=== PATIENT | female | born 1975 | race Caucasian/White ===

== ENCOUNTER → 2017-01-01 | Emergency (ER) | payer OTHER ==
[~2017-01-01] MED LIST: KETOROLAC TROMETHAMINE 30 MG/1 ML VIAL IVPUSH ONE; KETOROLAC TROMETHAMINE 60 MG/2 ML VIAL ONE; METOCLOPRAMIDE HCL INJECTION 10 MG/2 ML VIAL IVPB ONE; METOCLOPRAMIDE HCL INJECTION 10 MG/2 ML VIAL ONE; SODIUM CHLORIDE 1,000 ML IV SCH; oxyCODONE HCL 5 MG TABLET ONE; oxyCODONE HCL 5 MG TABLET PO ONE
[2017-01-01 15:12] VITALS: BP 156/93; PULSE 75; TEMP 98.3; BMI 26.3
--- NOTE | 2017-01-01 18:15 | PDOC ---
History of Present Illness - General Chief Complaint: Headache Stated Complaint: HEADACHE Time Seen by Provider: 01/01/17 17:23 - History of Present Illness Initial Comments: 01/01/17 19:13 Patient is a 41-year old female with past medical history of sickle cell disease presenting with headache and fever x2 days. patient states that the pain is mostly located in the sinus region frontal and maxillary and radiates over the top of ad to the occipital region. Patient states this is unusual for her she will headaches. Patient admits to rhinorrhea and nasal congestion. Denies photophobia, phonophobia and neck pain. patient states her regularly prescribed oxycodone. She had minimal relief.Patient was concerned about this headache due to recent sickle cell crisis. Patient states he was also septic at that time. Patient denies dizziness and weakness lightheadedness. Denies chills cough shortness of breath dyspnea chest pain palpitations nausea vomiting or diarrhea. Past History - Past Medical History Allergies/Adverse Reactions: Allergies Allergy/AdvReac Type Severity Reaction Status Date / Time No Known Allergies Allergy Verified 01/01/17 15:08 Home Medications: Ambulatory Orders Clonazepam [Klonopin] 1 mg PO BID PRN 01/01/17 Docusate Sodium [Colace -] 100 mg PO DAILY PRN 01/01/17 Folic Acid 1 mg PO DAILY 01/01/17 Oxycodone HCl 10 mg PO QID 01/01/17 Amoxicillin/Potassium Clav [Augmentin 875-125 Tablet] 1 each PO BID #14 tablet 01/02/17 Ibuprofen [Motrin -] 600 mg PO QID PRN #30 tablet 01/02/17 Anemia: No Asthma: No Cancer: No Cardiac Disorders: No CVA: No COPD: No CHF: No Dementia: No Diabetes: No GI Disorders: Yes (fatty liver on u/s) Disorders: No HTN: Yes (not on meds) Hypercholesterolemia: No Liver Disease: Yes Suicide Attempt (Hx): No Seizures: No Thyroid Disease: No Other medical history: sickle cell - Surgical History Abdominal Surgery: No Appendectomy: No Cardiac Surgery: No Cholecystectomy: Yes Lung Surgery: No Neurologic Surgery: No Orthopedic Surgery: No - Reproductive History (#): 2 Para: 0 Polycystic Ovaries: Yes Spontaneous : 1 - Immunization History Immunization Up to Date: Yes - Psycho/Social/Smoking Cessation Hx Anxiety: No Suicidal Ideation: No Smoking Status: Yes Smoking History: Former smoker Have you smoked in the past 12 months: Yes Number of Cigarettes Smoked Daily: 3 If you are a former smoker, when did you quit?: 10 months back Cigars Per Day: 0 Information on smoking cessation initiated: No 'Breaking Loose' booklet given: 12/02/16 Hx Alcohol Use: No Drug/Substance Use Hx: No Substance Use Type: None Hx Substance Use Treatment: No *Physical Exam - Vital Signs Last Vital Signs Temp Pulse Resp BP Pulse Ox 98.3 F 75 18 156/93 100 01/01/17 15:09 01/01/17 15:09 01/01/17 15:09 01/01/17 15:09 01/01/17 15:09 - Physical Exam Comments: 01/01/17 19:19 GENERAL: Well developed, well nourished. Awake and alert. No acute distress. HEENT: Normocephalic, atraumatic. R eye PERRLA, L eye Fixed pinpoint pupil. (pt states that this is normal for her after cataract [place] EOMI. No conjunctival pallor. Sclera are non-icteric. TTP of the frontal and maxillary sinuses.Moist mucous membranes. Oropharynx is clear. NECK: Supple. Full ROM. (-) bruinskis sign, kernigs sign. No JVD. Carotid pulses 2+ and symmetric, without bruits. No thyromegaly. No lymphadenopathy. CARDIOVASCULAR: Regular rate and rhythm. No murmurs, rubs, or gallops. Distal pulses are 2+ and symmetric. PULMONARY: No evidence of respiratory distress. Lungs clear to auscultation bilaterally. No wheezing, rales or rhonchi. ABDOMINAL: Soft. Non-tender. Non-distended. No rebound or guarding. No organomegaly. Normoactive bowel sounds. MUSCULOSKELETAL Normal range of motion at all joints. No bony deformities or tenderness. No CVA tenderness. EXTREMITIES: No cyanosis. No clubbing. No edema. No calf tenderness. SKIN: Warm and dry. Normal capillary refill. No rashes. No jaundice. NEUROLOGICAL: Alert, awake, appropriate. Cranial nerves 2-12 intact. No deficits to light touch and temperature in face, upper extremities and lower extremities. No motor deficits in the in face, upper extremities and lower extremities. Normoreflexic in the upper and lower extremities. Normal speech. Toes are down- going bilaterally. Gait is normal without ataxia. PSYCHIATRIC: Cooperative. Good eye contact. Appropriate mood and affect. ED Treatment Course - LABORATORY CBC & Chemistry Diagram: 01/01/17 18:47 01/01/17 18:47 Medical Decision Making - Medical Decision Making 01/01/17 19:19 Pt. is a 41 y/o female with PMH of sickle cell anemia presenting with headache and fever x2 days. Given pt. history will order basic labs, head CT and facial CT to determine if there is a sinus infection or other reason for her headache. Less suspicious for meningitis given lack of kernigs sign, brudinkis sign. CBC, CMP, Urine Upreg CT scan of head and facial bones Additional oxycodone for pain management. Will re-evaluate. 01/01/17 19:27 Sign out given to Lisandra SERNA. Discussed the case. Still waiting on labs and CT scans. *DC/Admit/Observation/Transfer Diagnosis at time of Disposition: Headache Qualifiers: Headache type: other headache syndrome Qualified Code(s): G44.89 - Other headache syndrome - Discharge Dispostion Disposition: HOME Condition at time of disposition: Improved - Prescriptions Prescriptions: Amoxicillin/Potassium Clav [Augmentin 875-125 Tablet] 1 each PO BID #14 tablet Ibuprofen [Motrin -] 600 mg PO QID PRN #30 tablet PRN Reason: Pain - Referrals Referrals: Taras Kwan MD [Staff Physician] - - Patient Instructions Printed Discharge Instructions: DI for Sinus Headache Additional Instructions: -Rest and stay well-hydrated -Take ibuprofen as prescribed for headache and continue Flonase -Take Augmentin as prescribed only if not improving -Follow up with neurology (referral enclosed) for further evaluation -Return here for worsening headache, weakness, changes in your vision, or any other concerning symptoms
[2017-01-01 18:56] LABS: BASOPHIL 1.1 % (0-2.0); EOSINOPHIL 4.1 % (0-4.5); MCH 26.8 pg (25.7-33.7); MCHC 33.1 g/dl (32.0-36.0); MEAN PLT VOLUME 8.6 fl (7.5-11.1); NEUTROPHILS 42.8 % (42.8-82.8); PLATELET COUNT 193 K/MM3 (134-434); RDW 18.2 % (11.6-15.6); WHITE BLOOD COUNT 7.4 K/mm3 (4.0-10.0)
--- NOTE | 2017-01-01 19:26 | PDOC ---
*Physical Exam - Vital Signs Last Vital Signs Temp Pulse Resp BP Pulse Ox 98.3 F 75 18 156/93 100 01/01/17 15:09 01/01/17 15:09 01/01/17 15:09 01/01/17 15:09 01/01/17 15:09 ED Treatment Course - LABORATORY CBC & Chemistry Diagram: 01/01/17 18:47 01/01/17 18:47 - ADDITIONAL ORDERS Additional order review: 01/01/17 18:47 RBC 4.34 D MCV 81.0 MCHC 33.1 RDW 18.2 H MPV 8.6 D Neutrophils % 42.8 D Lymphocytes % 41.1 H D Monocytes % 10.9 H Eosinophils % 4.1 Basophils % 1.1 - Medications Given in the ED: ED Medications Discontinued Medications Generic Name Dose Route Start Last Admin Trade Name Freq PRN Reason Stop Dose Admin Oxycodone HCl 5 mg 01/01/17 18:22 01/01/17 18:57 Roxicodone - PO 01/01/17 18:23 5 mg ONCE ONE Administration Medical Decision Making - Medical Decision Making 01/01/17 19:25 Signout received from ABELARDO Newell. Briefly, this is a 41 year old female with a history of with sickle cell disease (s/p recent ICU stay for acute chest syndrome), LLE DVT, PCOS, and fatty liver disease who presented to the ED complaining of subjective fever and frontal headache/sinus pressure. Patient is well-appearing and without meningismus. Vital signs are all within normal limits. 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 This was previously noted during the patient's prior admission. There is no ventricular dilitation or indication of obstructive hydrocephalus. Bilateral maxillary sinus thickening is noted. Patient's pain following Toradol is now reduced from 10/10 to 6/10. Will give Reglan/Benadryl. She is using Flonase for sinusitis at home without relief. Will rx Augmentin for possible bacterial sinusitis, however instructed patient to start abx only if not improving as she was recently treated with abx and is at higher risk for complications. She agrees with this plan. *DC/Admit/Observation/Transfer Diagnosis at time of Disposition: Headache Qualifiers: Headache type: other headache syndrome Qualified Code(s): G44.89 - Other headache syndrome - Discharge Dispostion Disposition: HOME Condition at time of disposition: Improved Admit: No - Referrals Referrals: Taras Kwan MD [Staff Physician] - - Patient Instructions Printed Discharge Instructions: DI for Sinus Headache Additional Instructions: -Rest and stay well-hydrated -Take ibuprofen as prescribed for headache and continue Flonase -Take Augmentin as prescribed only if not improving -Follow up with neurology (referral enclosed) for further evaluation -Return here for worsening headache, weakness, changes in your vision, or any other concerning symptoms
[2017-01-01 19:31] LABS: PLATELET ESTIMATE ADEQUATE (NORMAL)
[2017-01-01 19:37] LABS: ALBUMIN 3.6 g/dl (3.4-5.0); ANION GAP 8 (8-16); CALCIUM 8.7 mg/dL (8.5-10.1); CO2 28 mmol/L (21-32); CREATININE 0.5 mg/dL (0.55-1.02); GLUCOSE,RANDOM 161 mg/dL (74-106); SGOT/AST 22 U/L (15-37); SGPT/ALT 29 U/L (12-78)
[2017-01-01 19:38] LABS: ALK PHOS 194 U/L (45-117); BILIRUBIN,TOTAL 0.8 mg/dL (0.2-1.0)
[2017-01-01 19:39] LABS: URINE APPEARANCE CLEAR; URINE BILIRUBIN NEGATIVE (NEGATIVE); URINE BLOOD NEGATIVE (NEGATIVE); URINE COLOR YELLOW; URINE GLUCOSE (UA) NEGATIVE (NEGATIVE); URINE KETONE NEGATIVE (NEGATIVE); URINE LEUK ESTERASE NEGATIVE (NEGATIVE); URINE NITRITE NEGATIVE (NEGATIVE); URINE PROTEIN NEGATIVE (NEGATIVE); URINE UROBILINOGEN NEGATIVE E.U./dl (0.2-1.0)
== END | disposition home or self-care (01) ==
LOC: JER 14:49
PROC: 3E033NZ Introduction of Analgesics, Hypnotics, Sedatives into Peripheral Vein, Percutaneous Approach (ICD-10-PCS; principal; 2017-01-01)
PROC: 3E033GC Introduction of Other Therapeutic Substance into Peripheral Vein, Percutaneous Approach (ICD-10-PCS; 2017-01-01)
PROC: 3E0333Z Introduction of Anti-inflammatory into Peripheral Vein, Percutaneous Approach (ICD-10-PCS; 2017-01-01)
DX: G44.89 Other headache syndrome (principal); D57.1 Sickle-cell disease without crisis; K76.0 Fatty (change of) liver, not elsewhere classified; Z87.891 Personal history of nicotine dependence
CPT/HCPCS: 36415; 70450-TC; 80053; 81003; 84703; 85025; 96374; 96375; 99283-25

== ENCOUNTER 2017-04-15 21:41 | Inpatient (IN) | payer OTHER ==
[2017-04-15 22:14] VITALS: BMI 26.9
--- NOTE | 2017-04-16 00:33 | PDOC ---
History of Present Illness - General Chief Complaint: Cold Symptoms Stated Complaint: COLD SYMPTOMS Time Seen by Provider: 04/15/17 23:58 History Source: Patient - History of Present Illness Initial Comments: 04/16/17 00:58 41 year old female c/o chest pain and fever. patient signed out AMA from [facility] was admitted for pneumonia. patient c/o generalized bodyaches, fever and chest pain. History of sickle cell anemia, HTN, DM, anxiety, depression Past History - Past Medical History Allergies/Adverse Reactions: Allergies Allergy/AdvReac Type Severity Reaction Status Date / Time No Known Allergies Allergy Verified 01/01/17 15:08 Home Medications: Ambulatory Orders Clonazepam [Klonopin] 1 mg PO BID PRN 01/01/17 Docusate Sodium [Colace -] 100 mg PO DAILY PRN 01/01/17 Folic Acid 1 mg PO DAILY 01/01/17 Oxycodone HCl 10 mg PO QID 01/01/17 Amoxicillin/Potassium Clav [Augmentin 875-125 Tablet] 1 each PO BID #14 tablet 01/02/17 Ibuprofen [Motrin -] 600 mg PO QID PRN #30 tablet 01/02/17 Anemia: No Asthma: No Cancer: No Cardiac Disorders: No CVA: No COPD: No CHF: No Dementia: No Diabetes: Yes GI Disorders: Yes (fatty liver on u/s) Disorders: No HTN: Yes Hypercholesterolemia: No Liver Disease: Yes Suicide Attempt (Hx): No Seizures: No Thyroid Disease: No Other medical history: sickle cell anemia - Surgical History Abdominal Surgery: No Appendectomy: No Cardiac Surgery: No Cholecystectomy: Yes Lung Surgery: No Neurologic Surgery: No Orthopedic Surgery: No - Reproductive History (#): 2 Para: 0 Polycystic Ovaries: Yes Spontaneous : 1 - Immunization History Immunization Up to Date: Yes - Psycho/Social/Smoking Cessation Hx Anxiety: No Suicidal Ideation: No Smoking Status: Yes Smoking History: Former smoker Have you smoked in the past 12 months: No Number of Cigarettes Smoked Daily: 3 If you are a former smoker, when did you quit?: 10 months back Cigars Per Day: 0 Information on smoking cessation initiated: No 'Breaking Loose' booklet given: 12/02/16 Hx Alcohol Use: No Drug/Substance Use Hx: No Substance Use Type: None Hx Substance Use Treatment: No Review of Systems - Review of Systems Able to Perform ROS?: Yes Is the patient limited Azerbaijani proficient: No Constitutional: Yes: Chills, Fever HEENTM: No: Symptoms Reported, See HPI, Eye Pain, Blurred Vision, Tearing, Recent change in vision, Double Vision, Cataracts, Ear Pain, Ocular Prothesis, Ear Discharge, Nose Pain, Nose Congestion, Tinnitus, Nose Bleeding, Hearing Loss , Throat Pain, Throat Swelling, Mouth Pain, Dental Problems, Difficulty Swallowing, Mouth Swelling, Other Respiratory: Yes: Cough Cardiac (ROS): Yes: Chest Pain *Physical Exam - Vital Signs Last Vital Signs Temp Pulse Resp BP Pulse Ox 98.3 F 97 H 18 124/88 96 04/15/17 22:11 04/15/17 22:11 04/15/17 22:11 04/15/17 22:11 04/15/17 22:11 - Physical Exam General Appearance: Yes: Appropriately Dressed Respiratory/Chest: positive: Other (coarse breath sounds) Cardiovascular: positive: Regular Rhythm, Regular Rate Gastrointestinal/Abdominal: positive: Normal Bowel Sounds, Soft Extremity: positive: Normal Capillary Refill, Normal Inspection, Normal Range of Motion Integumentary: positive: Normal Color, Dry, Warm Neurologic: positive: Fully Oriented, Alert, Normal Mood/Affect ED Treatment Course - LABORATORY CBC & Chemistry Diagram: 04/16/17 01:03 04/16/17 01:03 - RADIOLOGY Chest X-Ray Result: No Infiltrates (bibasilar atelectasis) Progress Note - Progress Note Progress Note: A: chest pain Medical Decision Making - Medical Decision Making 04/16/17 04:48 Dr. Gannon Hematology consulted. recommends rate controlled IVF, CT chest, zosyn , pain control , DVT prophylaxis 04/16/17 04:50 *DC/Admit/Observation/Transfer Diagnosis at time of Disposition: Sickle cell crisis acute chest syndrome - Referrals Referrals: STAFF,NOT ON [Primary Care Provider] -
[2017-04-16 01:25] LABS: MCH 26.7 pg (25.7-33.7); MCHC 34.5 g/dl (32.0-36.0); MEAN CELL VOLUME 77.3 fl (80-96); MEAN PLT VOLUME 11.2 fl (7.5-11.1); RDW 19.9 % (11.6-15.6); WHITE BLOOD COUNT 8.7 K/mm3 (4.0-10.0)
[2017-04-16 01:32] LABS: URINE APPEARANCE CLEAR; URINE BILIRUBIN NEGATIVE (NEGATIVE); URINE BLOOD NEGATIVE (NEGATIVE); URINE COLOR LTYELLOW; URINE GLUCOSE (UA) NEGATIVE (NEGATIVE); URINE KETONE NEGATIVE (NEGATIVE); URINE LEUK ESTERASE NEGATIVE (NEGATIVE); URINE NITRITE NEGATIVE (NEGATIVE); URINE PROTEIN NEGATIVE (NEGATIVE); URINE UROBILINOGEN NEGATIVE E.U./dl (0.2-1.0)
[2017-04-16 01:35] LABS: INR 1.15 (0.82-1.09); PROTHROMBIN TIME (PATIENT) 12.7 SEC (9.98-11.88)
[2017-04-16 01:45] LABS: ALBUMIN 3.4 g/dl (3.4-5.0); ANION GAP 11 (8-16); CALCIUM 8.8 mg/dL (8.5-10.1); CO2 28 mmol/L (21-32); COCKROFT - GAULT 111.775; CREATININE 0.8 mg/dL (0.55-1.02); GLUCOSE,RANDOM 243 mg/dL (74-106); SGOT/AST 36 U/L (15-37); SGPT/ALT 38 U/L (12-78); TOT PROT 6.7 g/dl (6.4-8.2)
[2017-04-16 01:47] LABS: ALK PHOS 116 U/L (45-117); TROPONIN I < 0.02 ng/ml (0.00-0.05)
[2017-04-16 02:11] LABS: PLATELET COMMENT2 NO CLOTTING DETECTED; PLATELET COMMENT3 MOD GIANT PLTS; PLATELET COUNT 189 K/MM3 (134-434); PLATELET ESTIMATE ADEQUATE (NORMAL); SMUDGE CELLS FEW
[2017-04-16 02:12] LABS: ANISOCYTOSIS 1+; FRAGMENTED CELL 1+; HYPOCHROMIA 1+; MICROCYTOSIS 1+; POIKILOCYTOSIS 1+; POLYCHROMASIA 1+; TARGET CELLS 1+
[2017-04-16] MEDS ORDERED: IBUPROFEN 600 MG TABLET (FP) PO ONE ×2 (05:00→05:06)
[2017-04-16] MEDS ORDERED: SODIUM CHLORIDE 1,000 ML IV SCH (05:00)
[2017-04-16] MEDS ORDERED: IBUPROFEN 600 MG TABLET (FP) PO PRN (08:19)
--- NOTE | 2017-04-16 09:15 | EKG ---
Test Reason : Blood Pressure : / mmHG Vent. Rate : 081 BPM Atrial Rate : 081 BPM P-R Int : 164 ms QRS Dur : 078 ms QT Int : 374 ms P-R-T Axes : 053 -21 012 degrees QTc Int : 434 ms NORMAL SINUS RHYTHM POSSIBLE LEFT ATRIAL ENLARGEMENT LEFT AXIS DEVIATION LEFT VENTRICULAR HYPERTROPHY ABNORMAL ECG Confirmed by DONNA WEISS MD ([id number]) on 04/16/2017 9:15:32 AM Referred By: Confirmed By:DONNA WEISS MD
[2017-04-16] MEDS ORDERED: PATIENT'S OWN MEDICATION (NON-FORMULARY) (Oxycodone Hcl [Oxycodone Hcl] 10 MG) PO SCH (10:00)
[2017-04-16] MEDS ORDERED: INSULIN (NOVOLOG) ASPART 100 UNITS/ML 10ML VIAL ONE ×3 (10:29→22:53)
[2017-04-16] MEDS: amLODIPine BESYLATE 5 MG TABLET (FP) PO SCH (10:31)
[2017-04-16] MEDS: DOCUSATE SODIUM 100 MG CAPSULE (FP) PO SCH ×2 (10:31→23:05)
[2017-04-16] MEDS: RANITIDINE HCL 150 MG TABLET (FP) PO SCH ×2 (10:31→23:04)
[2017-04-16] MEDS: SERTRALINE HCL 25 MG TABLET (FP) PO SCH (10:31)
[2017-04-16] MEDS: FOLIC ACID 1 MG TABLET (FP) PO SCH (10:31)
[2017-04-16] MEDS: oxyCODONE HCL 5 MG TABLET PO PRN (10:32)
[2017-04-16] MEDS: SODIUM CHLORIDE 1,000 ML IV SCH (10:39)
[2017-04-16] MEDS: INSULIN SLIDING SCALE (NOVOLOG) 1 VIAL SQ SCH ×3 (10:39→23:05)
--- NOTE | 2017-04-16 11:02 | HP ---
CHIEF COMPLAINT: arm and leg pain, In ER c/o fever, chest pain? PCP: not on staff ~ Dr. Munguia in [facility] last seen in February and scheduled to see her again in May 2017 HISTORY OF PRESENT ILLNESS: This 41 year old female who has a significant hx of sickle cell anemia was initially seen [facility] ER the day before. She had complaints of "general body pain, fever (not documented) and chest pain however she spent 24 in the ER waiting for a bed that she signed out AMA. She states she is not here with similar complaints of arm and leg pain when interviewed for admission. According to note from ER she also stated she had chest pain and fever with ? pna but pt now states she does not have those complaints. Her primary language is amharic. She states she has left side arm and leg pain with out joint swelling, redness, recent trauma, fever. She has chronic pain with Sickle and takes tramadol for it at home but it does not work well. Currently she was treated in ER with 1 IVF of bolus, noted to have an elevated retic count over 3. She is afebrile. She underwent a CXR and CT of the chest. No pna noted, however a noted finding of a nodule to the LLL that should be followed up in 12 month is noted. She has no c/o sob or chest pain or cough currently. No need for current antibiotic use. She is currently admitted to for continual treatment of Sickle cell crisis and management of pain. Recent Travel: denies PAST MEDICAL HISTORY: sickle cell gene PAST SURGICAL HISTORY: Social History: Smoking:former Alcohol:denies Drugs: denies Family History: Allergies No Known Allergies Allergy (Verified 01/01/17 15:08) HOME MEDICATIONS: Home Medications Medication Instructions Recorded Docusate Sodium [Colace -] 100 mg PO BID 01/01/17 Folic Acid 1 mg PO DAILY 01/01/17 Oxycodone HCl 10 mg PO QID 01/01/17 Amoxicillin/Potassium Clav 1 each PO BID #14 tablet 01/02/17 [Augmentin 875-125 Tablet] Ibuprofen [Motrin -] 600 mg PO QID PRN #30 tablet 01/02/17 Amlodipine Besylate [Norvasc -] 5 mg PO DAILY 04/16/17 Clonazepam [Klonopin -] 2 mg PO BID PRN 04/16/17 Famotidine [Heartburn Prevention] 20 mg PO BID 04/16/17 Metformin HCl [Metformin HCl ER] 500 mg PO ACBK 04/16/17 Sertraline HCl [Zoloft] 25 mg PO DAILY 04/16/17 Tramadol HCl 50 mg PO DAILY PRN 04/16/17 Trazodone HCl 50 mg PO HS 04/16/17 REVIEW OF SYSTEMS CONSTITUTIONAL: Absent: (+)fever, chills, diaphoresis, generalized weakness, malaise, loss of appetite, weight change HEENT: Absent: rhinorrhea, nasal congestion, throat pain, throat swelling, difficulty swallowing, mouth swelling, ear pain, eye pain, visual changes CARDIOVASCULAR: Absent: (+)chest pain, syncope, palpitations, irregular heart rate, lightheadedness, peripheral edema RESPIRATORY: Absent: (+)cough, shortness of breath, dyspnea with exertion, orthopnea, wheezing, stridor, hemoptysis GASTROINTESTINAL: Absent: abdominal pain, abdominal distension, nausea, vomiting, diarrhea, constipation, melena, hematochezia GENITOURINARY: Absent: dysuria, frequency, urgency, hesitancy, hematuria, flank pain, genital pain MUSCULOSKELETAL: Absent: (+)myalgia, (+)arthralgia, joint swelling, back pain, neck pain SKIN: Absent: rash, itching, pallor HEMATOLOGIC/IMMUNOLOGIC: Absent: easy bleeding, easy bruising, lymphadenopathy, frequent infections ENDOCRINE: Absent: unexplained weight gain, unexplained weight loss, heat intolerance, cold intolerance NEUROLOGIC: Absent: headache, focal weakness or paresthesias, dizziness, unsteady gait, seizure, mental status changes, bladder or bowel incontinence PSYCHIATRIC: Absent: anxiety, depression, suicidal or homicidal ideation, hallucinations. PHYSICAL EXAMINATION Vital Signs - 24 hr 04/16/17 04/16/17 06:40 08:35 Temperature 98.0 F Pulse Rate 76 Pulse Rate [ 87 Left] Respiratory 16 20 Rate Blood Pressure 142/99 Blood Pressure 130/78 [Right] O2 Sat by Pulse 99 99 Oximetry (%) GENERAL: Awake, alert, and fully oriented, in no acute distress. HEAD: Normal with no signs of trauma. EYES: Pupils equal, round and reactive to light, extraocular movements intact, sclera anicteric, conjunctiva clear. No lid lag. EARS, NOSE, THROAT: Ears normal, nares patent, oropharynx clear without exudates. Moist mucous membranes. NECK: Normal range of motion, supple without lymphadenopathy, JVD, or masses. LUNGS: Breath sounds equal, clear to auscultation bilaterally. No wheezes, and no crackles. No accessory muscle use. Noted to have mild cough on exam but no production HEART: Regular rate and rhythm, normal S1 and S2 without murmur, rub or gallop. EKG: noted to have Left axis deviation and hypertrophy, first set of trops neg. ABDOMEN: Soft, nontender, not distended, normoactive bowel sounds, no guarding, no rebound, no masses. No hepatomegaly or splenomegaly. MUSCULOSKELETAL: Normal range of motion at all joints. No bony deformities or tenderness. No CVA tenderness. however states she has pain generalized UPPER EXTREMITIES: 2+ pulses, warm, well-perfused. No cyanosis. No clubbing. No peripheral edema. LOWER EXTREMITIES: 2+ pulses, warm, well-perfused. No calf tenderness. No peripheral edema. NEUROLOGICAL: Cranial nerves II-XII intact. Normal speech. Normal gait. PSYCHIATRIC: Cooperative. Good eye contact. Appropriate mood and affect. SKIN: Warm, dry, normal turgor, no rashes or lesions noted, normal capillary refill. ASSESSMENT/PLAN: This 41 yr old female with c/o general body pains, ? chest pain 2nd to sickle cell crisis 1. Sickle Cell Crisis -Continue with IVF -repeat retic and cbc labs later today -pain meds PRN -consult with Dr Gannon, hematology 2. chest pain, probable secondary to crisis event -CT of chest with found noted nodule to be reassessed in 12 mnths -cxr no infiltrates noted, no ABT needed at this time -no fever noted in [place], sulphur VS -incentive spirometer -trend trops 3. Admit to 6 s for admission med surg for sickle cell crisis Visit type - Emergency Visit Emergency Visit: Yes ED Registration Date: 04/16/17 Care time: The patient presented to the Emergency Department on the above date and was hospitalized for further evaluation of their emergent condition. - New Patient This patient is new to me today: Yes Date on this admission: 04/16/17 - Critical Care Critical Care patient: No
[2017-04-16] MEDS ORDERED: PNEUMOC 13-VAL CONJ-DIP CRM/PF 0.5 ML DISP.SYRIN IM ONE (13:00)
[2017-04-16 15:49] LABS: MCH 26.4 pg (25.7-33.7); MCHC 34.2 g/dl (32.0-36.0); MEAN CELL VOLUME 77.2 fl (80-96); MEAN PLT VOLUME 11.1 fl (7.5-11.1); PLATELET COUNT 181 K/MM3 (134-434); RDW 20.2 % (11.6-15.6)
[2017-04-16 16:27] LABS: ANION GAP 8 (8-16); CALCIUM 8.6 mg/dL (8.5-10.1); CO2 29 mmol/L (21-32); CREATININE 0.7 mg/dL (0.55-1.02); GLUCOSE,RANDOM 109 mg/dL (74-106)
[2017-04-16 16:29] LABS: TROPONIN I < 0.02 ng/ml (0.00-0.05)
[2017-04-16 19:11] LABS: ANISOCYTOSIS 1+; PLATELET COMMENT2 NO CLUMPING NOTED; PLATELET ESTIMATE ADEQUATE (NORMAL)
[2017-04-16] MEDS: morphine CARPU-JECT 2 MG/1 ML DISP.SYRIN IVPUSH PRN (20:30)
[2017-04-16] MEDS: traZODone HCL 50 MG TABLET (FP) PO SCH (23:03)
--- NOTE | 2017-04-16 23:25 | PN ---
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 She was started on rocephin and switched to levaquin wwhen she signed out there. Signed out there and comes here for chest/back pain, cough, phlegm No fevers/chills/abdominal pain/ PMH Hemoglobin SC disease h/o acute chest syndeome PCOS infertility AFVSS Cor: RSR, No murmurs, No gallops Lungs: scattered wheezes Abd: Soft, Normal bowel sounds, No organomegaly Ext:No significant edema Abnormal Lab Results 04/16/17 04/16/17 04/17/17 14:47 14:47 06:30 WBC 12.3 H D MCV 77.2 L 77.2 L RDW 20.2 H 20.1 H Neutrophils % 24.0 L D Lymphocytes % 51.0 H D Monocytes % 11.0 H D Eosinophils % 5.0 H Nucleated RBCs 1 H Anion Gap Random Glucose 109 H D LD Total C-Reactive Protein 04/17/17 04/17/17 06:30 06:30 WBC MCV RDW Neutrophils % Lymphocytes % Monocytes % Eosinophils % Nucleated RBCs Anion Gap 7 L Random Glucose 161 H D LD Total 264 H D C-Reactive Protein 1.0 H D Home Medication List Medication Instructions Recorded Confirmed Type Docusate Sodium [Colace -] 100 mg PO BID 01/01/17 04/16/17 History Folic Acid 1 mg PO DAILY 01/01/17 04/16/17 History Oxycodone HCl 10 mg PO QID 01/01/17 04/16/17 History Amlodipine Besylate [Norvasc -] 5 mg PO DAILY 04/16/17 04/16/17 History Clonazepam [Klonopin -] 2 mg PO BID PRN 04/16/17 04/16/17 History Famotidine [Heartburn Prevention] 20 mg PO BID 04/16/17 04/16/17 History Metformin HCl [Metformin HCl ER] 500 mg PO ACBK 04/16/17 04/16/17 History Sertraline HCl [Zoloft] 25 mg PO DAILY 04/16/17 04/16/17 History Tramadol HCl 50 mg PO DAILY PRN 04/16/17 04/16/17 History Trazodone HCl 50 mg PO HS 04/16/17 04/16/17 History Active Medications Generic Name Dose Route Start Last Admin Trade Name Freq PRN Reason Stop Dose Admin Amlodipine Besylate 5 mg 04/16/17 10:00 04/17/17 09:00 Norvasc - PO 5 mg DAILY NILSON Administration Clonazepam 1 mg 04/16/17 08:19 Klonopin - PO BID PRN ANXIETY Docusate Sodium 100 mg 04/16/17 10:00 04/17/17 09:00 Colace - PO 100 mg BID NILSON Administration Folic Acid 1 mg 04/16/17 10:00 04/17/17 09:00 Folic Acid - PO 1 mg DAILY NILSON Administration Sodium Chloride 1,000 mls @ 150 mls/hr 04/16/17 10:45 04/17/17 07:17 Normal Saline - IV 150 mls/hr ASDIR NILSON Administration Ibuprofen 600 mg 04/16/17 08:19 04/16/17 16:23 Motrin - PO 600 mg QID PRN Administration PAIN Insulin Aspart 1 vial 04/16/17 11:00 04/17/17 07:14 Novolog Vial Sliding Scale - SQ 2 unit ACHS NILSON Administration Protocol Metformin HCl 500 mg 04/17/17 07:00 Glucophage Xr - PO ACBK NILSON Morphine Sulfate 1 mg 04/16/17 08:22 04/16/17 20:30 Morphine Injection - IVPUSH 1 mg Q4H PRN Administration SEVERE PAIN Oxycodone HCl 10 mg 04/16/17 08:25 04/17/17 08:57 Roxicodone - PO 10 mg Q4H PRN Administration PAIN Ranitidine HCl 150 mg 04/16/17 10:30 04/17/17 09:00 Zantac - PO 150 mg BID NILSON Administration Sertraline HCl 25 mg 04/16/17 10:00 04/17/17 09:00 Zoloft - PO 25 mg DAILY NILSON Administration Trazodone HCl 50 mg 04/16/17 22:00 04/16/17 23:03 Desyrel - PO 50 mg HS NILSON Administration A/P 41 y/o female Hgb SC disease, comes in with back, chest pain. PAtient comfortable, not in any distress. will request pain management consult for chronic pain ct chest showed no infiltrates but atelectasis incentive spirometry/folic acid/gentle hydration check LDH
[2017-04-17] MEDS: INSULIN SLIDING SCALE (NOVOLOG) 1 VIAL SQ SCH ×4 (07:14→21:19)
[2017-04-17] MEDS: SODIUM CHLORIDE 1,000 ML IV SCH (07:17)
[2017-04-17 07:56] LABS: MCH 26.9 pg (25.7-33.7); MCHC 34.8 g/dl (32.0-36.0); MEAN CELL VOLUME 77.2 fl (80-96); RDW 20.1 % (11.6-15.6); WHITE BLOOD COUNT 12.3 K/mm3 (4.0-10.0)
[2017-04-17 08:27] LABS: ANION GAP 7 (8-16); CALCIUM 8.6 mg/dL (8.5-10.1); CO2 30 mmol/L (21-32); GLUCOSE,RANDOM 161 mg/dL (74-106)
[2017-04-17 08:33] LABS: COCKROFT - GAULT 149.005; CREATININE 0.6 mg/dL (0.55-1.02); LDH 264 U/L (84-246); TROPONIN I < 0.02 ng/ml (0.00-0.05)
[2017-04-17] MEDS ORDERED: PT OWN MED DRAWER 7, Y5N ONE (08:53)
[2017-04-17] MEDS: oxyCODONE HCL 5 MG TABLET PO PRN (08:57)
[2017-04-17] MEDS: FOLIC ACID 1 MG TABLET (FP) PO SCH (09:00)
[2017-04-17] MEDS: amLODIPine BESYLATE 5 MG TABLET (FP) PO SCH (09:00)
[2017-04-17] MEDS: RANITIDINE HCL 150 MG TABLET (FP) PO SCH ×2 (09:00→21:18)
[2017-04-17] MEDS: SERTRALINE HCL 25 MG TABLET (FP) PO SCH (09:00)
[2017-04-17] MEDS: DOCUSATE SODIUM 100 MG CAPSULE (FP) PO SCH ×2 (09:00→21:18)
--- NOTE | 2017-04-17 09:15 | PN ---
Physical Exam: SUBJECTIVE: Patient seen and examined Patient is coughing and wheezing, c/o having generalized pain. OBJECTIVE: Vital Signs Temperature 98.3 F 04/17/17 06:00 Pulse Rate 87 04/17/17 06:00 Respiratory Rate 18 04/17/17 06:00 Blood Pressure 132/77 04/17/17 06:00 O2 Sat by Pulse Oximetry (%) 99 04/16/17 22:00 GENERAL: The patient is awake, alert, and fully oriented, in no acute distress. HEAD: Normal with no signs of trauma. EYES: PERRL, extraocular movements intact, sclera anicteric, conjunctiva clear. No ptosis. ENT: Ears normal, oropharynx clear without exudates, moist mucous membranes. NECK: Trachea midline, full range of motion, supple. LUNGS: positive for wheezing BL, ,no crackles, no accessory muscle use. HEART: Regular rate and rhythm, S1, S2 without murmur, rub or gallop. ABDOMEN: Soft, nontender, nondistended, normoactive bowel sounds, no guarding, no rebound, no hepatosplenomegaly, no masses. EXTREMITIES: 2+ pulses, warm, well-perfused, no edema. NEUROLOGICAL: Cranial nerves II through XII grossly intact. Normal speech, gait not observed. PSYCH: Normal mood, normal affect. SKIN: Warm, dry, normal turgor, no rashes or lesions noted CBCD WBC 12.3 K/mm3 (4.0-10.0) H D 04/17/17 06:30 RBC 4.32 M/mm3 (3.60-5.2) 04/17/17 06:30 Hgb 11.6 GM/dL (10.7-15.3) 04/17/17 06:30 Hct 33.3 % (32.4-45.2) 04/17/17 06:30 MCV 77.2 fl (80-96) L 04/17/17 06:30 MCHC 34.8 g/dl (32.0-36.0) 04/17/17 06:30 RDW 20.1 % (11.6-15.6) H 04/17/17 06:30 Plt Count 181 K/MM3 (134-434) 04/16/17 14:47 MPV 10.0 fl (7.5-11.1) 04/17/17 06:30 CMP Sodium 140 mmol/L (136-145) 04/17/17 06:30 Potassium 4.6 mmol/L (3.5-5.1) 04/17/17 06:30 Chloride 103 mmol/L (98-107) 04/17/17 06:30 Carbon Dioxide 30 mmol/L (21-32) 04/17/17 06:30 Anion Gap 7 (8-16) L 04/17/17 06:30 BUN 9 mg/dL (7-18) 04/17/17 06:30 Creatinine 0.6 mg/dL (0.55-1.02) 04/17/17 06:30 Creat Clearance w eGFR > 60 (>60) 04/16/17 01:03 Random Glucose 161 mg/dL (74-106) H D 04/17/17 06:30 Calcium 8.6 mg/dL (8.5-10.1) 04/17/17 06:30 Total Bilirubin 1.0 mg/dL (0.2-1.0) D 04/16/17 01:03 AST 36 U/L (15-37) D 04/16/17 01:03 ALT 38 U/L (12-78) D 04/16/17 01:03 Alkaline Phosphatase 116 U/L (45-117) D 04/16/17 01:03 Total Protein 6.7 g/dl (6.4-8.2) 04/16/17 01:03 Albumin 3.4 g/dl (3.4-5.0) 04/16/17 01:03 CARDIAC ENZYMES Creatine Kinase 52 IU/L (26-192) 04/16/17 01:03 Troponin I < 0.02 ng/ml (0.00-0.05) 04/17/17 06:30 04/17/17 04/17/17 04/17/17 06:30 06:30 06:38 WBC RBC Hgb Hct MCV MCHC RDW Plt Count MPV Neutrophils % Lymphocytes % Monocytes % Eosinophils % Basophils % Nucleated RBCs Differential Comment Reactive Lymphocytes Platelet Estimate Platelet Comment Anisocytosis Morphology Comment Sodium 140 Potassium 4.6 Chloride 103 Carbon Dioxide 30 Anion Gap 7 L BUN 9 Creatinine 0.6 POC Glucometer 175 Random Glucose 161 H D Calcium 8.6 LD Total 264 H D Troponin I < 0.02 C-Reactive Protein 1.0 H D Active Medications Generic Name Dose Route Start Last Admin Trade Name Freq PRN Reason Stop Dose Admin Amlodipine Besylate 5 mg 04/16/17 10:00 04/17/17 09:00 Norvasc - PO 5 mg DAILY NILSON Administration Clonazepam 1 mg 04/16/17 08:19 Klonopin - PO BID PRN ANXIETY Docusate Sodium 100 mg 04/16/17 10:00 04/17/17 09:00 Colace - PO 100 mg BID NILSON Administration Folic Acid 1 mg 04/16/17 10:00 04/17/17 09:00 Folic Acid - PO 1 mg DAILY NILSON Administration Sodium Chloride 1,000 mls @ 150 mls/hr 04/16/17 10:45 04/17/17 07:17 Normal Saline - IV 150 mls/hr ASDIR NILSON Administration Ibuprofen 600 mg 04/16/17 08:19 04/16/17 16:23 Motrin - PO 600 mg QID PRN Administration PAIN Insulin Aspart 1 vial 04/16/17 11:00 04/17/17 07:14 Novolog Vial Sliding Scale - SQ 2 unit ACHS NILSON Administration Protocol Metformin HCl 500 mg 04/17/17 07:00 Glucophage Xr - PO ACBK NILSON Morphine Sulfate 1 mg 04/16/17 08:22 04/16/17 20:30 Morphine Injection - IVPUSH 1 mg Q4H PRN Administration SEVERE PAIN Oxycodone HCl 10 mg 04/16/17 08:25 04/17/17 08:57 Roxicodone - PO 10 mg Q4H PRN Administration PAIN Ranitidine HCl 150 mg 04/16/17 10:30 04/17/17 09:00 Zantac - PO 150 mg BID NILSON Administration Sertraline HCl 25 mg 04/16/17 10:00 04/17/17 09:00 Zoloft - PO 25 mg DAILY NILSON Administration Trazodone HCl 50 mg 04/16/17 22:00 04/16/17 23:03 Desyrel - PO 50 mg HS NILSON Administration ASSESSMENT/PLAN: This 41 yr old female with c/o general body pains, chest pain with hx of sickle cell # Acute Bronchitis with exacerbation of Asthma ; Will place her on nebulizer tx , IV rocephin 1gm daily /Zithromax 500mg x 1 dose then 250mg iV daily x 5 days will stop Motrin for now since has asthma which can make her asthma worse. Pulmonary consult to see the patient. Will get Flu swab on her to r/o INFAB # Acute generalized pain/Fibromylagic Pain will get Lyme titer, TSH/FT4 levels; IVf 1/2 NS at 75cc/hr x 2 liter # Chest pain is due to her coughing and wheezing doubt Sickle cell crisis. will continue her pain meds. morphine/oxycodone prn # Sickle Cell disease continue her folic acid, appreciate Hem consult # acute leukocytosis due to her Bronchitis ;incentive spirometer # T2DM on achs insulin, will hold Metformin for now DVT Px: Lovenox sq, early ambulation. SCDs while in bed Visit type - Emergency Visit Emergency Visit: Yes ED Registration Date: 04/16/17 Care time: The patient presented to the Emergency Department on the above date and was hospitalized for further evaluation of their emergent condition. - New Patient This patient is new to me today: Yes Date on this admission: 04/17/17 - Critical Care Critical Care patient: No
[2017-04-17] MEDS: FLUTICASONE PROP 0.05% 16 GM NASAL SPRAY NS SCH ×2 (09:43→21:17)
[2017-04-17] MEDS ORDERED: ALBUTEROL SO4 2.5/IPRATROPIUM 0.5 INH SOL 3 ML VIAL.NEB. NEB PRN (11:44)
[2017-04-17 11:53] LABS: PLATELET COMMENT2 NO CLOTTING DETECTED; PLATELET COMMENT3 MOD LARGE PLTS; PLATELET COUNT 181 K/MM3 (134-434); PLATELET ESTIMATE ADEQUATE (NORMAL)
[2017-04-17] MEDS: CEFTRIAXONE 50 ML IVPB SCH (12:13)
[2017-04-17] MEDS: SODIUM CHLORIDE 0.45% 1,000 ML IV SCH (12:13)
[2017-04-17] MEDS: AZITHROMYCIN IVPB 250 ML IVPB SCH (12:17)
[2017-04-17 12:51] LABS: FREE T4 1.31 ng/dl (0.76-1.46); THYROID STIMULATING HORMONE 1.46 uIU/ml (0.358-3.74)
--- NOTE | 2017-04-17 13:25 | CON.PULM ---
Consult Consult Specialty:: PULM/CCM Referred by:: JACQUELINE Reason for Consultation:: SOB - History of Present Illness Chief Complaint: CP/SOB History of Present Illness: 41 f, known to me from a previous admission to the ICU due to Sepsis due to PNA. Was recently evaluated at [facility] and apparently she signed AMA. Reports several days of congested cough, SOB, pleuritic type CP, and wheezing. No fever or chills. No hemoptysis. No travel history or sick contacts. CT Chest : minimal basilar atelectasis Patient is currently in NAD on RA. - History Source History Provided By: Patient Limitations to Obtaining History: No Limitations - Past Medical History Cardio/Vascular: Yes: Deep Vein Thrombosis, HTN ...LMP: 03/31/17 ...: No - Past Surgical History Past Surgical History: Yes: Cataract Removal, Cholecystectomy - Alcohol/Substance Use Hx Alcohol Use: No History of Substance Use: reports: None - Smoking History Smoking history: Former smoker Have you smoked in the past 12 months: No Aproximately how many cigarettes per day: 3 If you are a former smoker, when did you quit?: 5 MONTHS AGO Home Medications - Allergies Allergies/Adverse Reactions: Allergies Allergy/AdvReac Type Severity Reaction Status Date / Time No Known Allergies Allergy Verified 01/01/17 15:08 - Home Medications Home Medications: Ambulatory Orders Docusate Sodium [Colace -] 100 mg PO BID 01/01/17 Folic Acid 1 mg PO DAILY 01/01/17 Oxycodone HCl 10 mg PO QID 01/01/17 Amoxicillin/Potassium Clav [Augmentin 875-125 Tablet] 1 each PO BID #14 tablet 01/02/17 Ibuprofen [Motrin -] 600 mg PO QID PRN #30 tablet 01/02/17 Amlodipine Besylate [Norvasc -] 5 mg PO DAILY 04/16/17 Clonazepam [Klonopin -] 2 mg PO BID PRN 04/16/17 Famotidine [Heartburn Prevention] 20 mg PO BID 04/16/17 Metformin HCl [Metformin HCl ER] 500 mg PO ACBK 04/16/17 Sertraline HCl [Zoloft] 25 mg PO DAILY 04/16/17 Tramadol HCl 50 mg PO DAILY PRN 04/16/17 Trazodone HCl 50 mg PO HS 04/16/17 Review of Systems - Review of Systems Constitutional: reports: Malaise. denies: Chills, Fever, Night Sweats, Unintentional Wgt. Loss, Weakness Eyes: reports: No Symptoms HENT: reports: No Symptoms Neck: reports: No Symptoms Cardiovascular: reports: Chest Pain, Shortness of Breath. denies: Edema, Palpitations Respiratory: reports: Cough, Snoring, SOB, SOB on Exertion, Wheezing. denies: Hemoptysis Gastrointestinal: reports: No Symptoms Genitourinary: reports: No Symptoms Breasts: reports: No Symptoms Reported Musculoskeletal: reports: No Symptoms Integumentary: reports: No Symptoms Neurological: reports: No Symptoms Endocrine: reports: No Symptoms Hematology/Lymphatic: reports: No Symptoms Psychiatric: reports: No Symptoms Physical Exam Vital Sings: Vital Signs Temperature 98.7 F 04/17/17 10:00 Pulse Rate 90 04/17/17 10:00 Respiratory Rate 18 04/17/17 10:00 Blood Pressure 140/77 04/17/17 10:00 O2 Sat by Pulse Oximetry (%) 99 04/17/17 09:00 Constitutional: Yes: No Distress, Obese Eyes: Yes: Conjunctiva Clear, EOM Intact HENT: Yes: Atraumatic, Normocephalic Neck: Yes: Supple, Trachea Midline Cardiovascular: Yes: Regular Rate and Rhythm Respiratory: Yes: Cough, Rhonchi, Tachypnea, Wheezes. No: Accessory Muscle Use , Rales, Stridor ...Inspection: Yes: WNL ...Clubbing: No Gastrointestinal: Yes: WNL, Normal Bowel Sounds, Soft Renal/: Yes: WNL Musculoskeletal: Yes: WNL Extremities: Yes: WNL Edema: No Peripheral Pulses WNL: Yes Integumentary: Yes: WNL Neurological: Yes: WNL, Alert, Oriented ...Motor Strength: WNL Psychiatric: Yes: WNL, Alert, Oriented Labs: CBC, BMP 04/17/17 06:30 04/17/17 06:30 Imaging - Results Chest X-ray: Report Reviewed, Image Reviewed Cat Scan: Report Reviewed, Image Reviewed Problem List - Problems (1) Chest pain Code(s): R07.9 - CHEST PAIN, UNSPECIFIED Qualifiers: Chest pain type: unspecified Qualified Code(s): R07.9 - Chest pain, unspecified (2) DVT (deep venous thrombosis) Code(s): I82.409 - ACUTE EMBOLISM AND THOMBOS UNSP DEEP VN UNSP LOWER EXTREMITY (3) HTN (hypertension) Code(s): I10 - ESSENTIAL (PRIMARY) HYPERTENSION Qualifiers: Hypertension type: essential hypertension Qualified Code(s): I10 - Essential (primary) hypertension (4) Acute bronchospasm Code(s): J98.01 - ACUTE BRONCHOSPASM (5) Cough Code(s): R05 - COUGH (6) Musculoskeletal pain Code(s): M79.1 - MYALGIA Assessment/Plan PLAN: IV Steroids BD TX Empiric ABX for now O2 as needed VTE prophylaxis Nasal spray Will follow (NO indication of acute chest syndrome) Thank you. Dr Barajas
[2017-04-17] MEDS: methylPREDNISolone NA SUCC 40 MG/1 ML VIAL IVPB SCH ×2 (13:57→17:13)
[2017-04-17] MEDS: ALBUTEROL SO4 2.5/IPRATROPIUM 0.5 INH SOL 3 ML VIAL.NEB. NEB SCH ×2 (14:44→22:25)
[2017-04-17] MEDS: morphine CARPU-JECT 2 MG/1 ML DISP.SYRIN IVPUSH PRN (20:25)
[2017-04-17] MEDS: traZODone HCL 50 MG TABLET (FP) PO SCH (21:18)
[2017-04-17] MEDS ORDERED: INSULIN (NOVOLOG) ASPART 100 UNITS/ML 10ML VIAL ONE (21:19)
--- NOTE | 2017-04-18 00:24 | PN ---
Progress Note (short form) - Note Progress Note: Patient seen in follow up. No events overnight. Ongoing diffuse pain - headache. Reports some coughing. No SOB at rest. Meds reviewed. Current Medications Generic Name Dose Route Start Last Admin Trade Name Freq PRN Reason Stop Dose Admin Albuterol/Ipratropium 1 amp 04/17/17 11:44 Duoneb - NEB Q6H PRN SHORTNESS OF BREATH Albuterol/Ipratropium 1 amp 04/17/17 14:00 04/17/17 22:25 Duoneb - NEB 1 amp TIDR NILSON Administration Amlodipine Besylate 5 mg 04/16/17 10:00 04/17/17 09:00 Norvasc - PO 5 mg DAILY NILSON Administration Clonazepam 1 mg 04/16/17 08:19 Klonopin - PO BID PRN ANXIETY Docusate Sodium 100 mg 04/16/17 10:00 04/17/17 21:18 Colace - PO 100 mg BID NILSON Administration Fluticasone Propionate 2 spray 04/17/17 14:30 04/17/17 21:17 Flonase - NS 2 spray DAILY NILSON Administration Folic Acid 1 mg 04/16/17 10:00 04/17/17 09:00 Folic Acid - PO 1 mg DAILY NILSON Administration Azithromycin 250 mls @ 250 mls/hr 04/17/17 11:30 04/17/17 12:17 Zithromax 500mg Ivpb (Pre-Docked) IVPB 250 mls/hr DAILY NILSON Administration Ceftriaxone Sodium 50 mls @ 100 mls/hr 04/17/17 11:30 04/17/17 12:13 Rocephin 1gm Ivpb (Pre-Docked) IVPB 100 mls/hr DAILY NILSON Administration Sodium Chloride 1,000 mls @ 75 mls/hr 04/17/17 11:45 04/17/17 12:13 1/2 Normal Saline IV 04/19/17 01:04 75 mls/hr ASDIR NILSON Administration Insulin Aspart 1 vial 04/16/17 11:00 04/17/17 21:19 Novolog Vial Sliding Scale - SQ 10 unit ACHS NILSON Administration Protocol Methylprednisolone Sodium Succinate 60 mg 04/17/17 13:30 04/17/17 17:13 Solu-Medrol - IVPB 60 mg Q8H-IV NILSON Administration Morphine Sulfate 1 mg 04/16/17 08:22 04/17/17 20:25 Morphine Injection - IVPUSH 1 mg Q4H PRN Administration SEVERE PAIN Oxycodone HCl 5 mg 04/17/17 11:29 Roxicodone - PO Q4H PRN PAIN Ranitidine HCl 150 mg 04/16/17 10:30 04/17/17 21:18 Zantac - PO 150 mg BID NILSON Administration Sertraline HCl 25 mg 04/16/17 10:00 04/17/17 09:00 Zoloft - PO 25 mg DAILY NILSON Administration Trazodone HCl 50 mg 04/16/17 22:00 04/17/17 21:18 Desyrel - PO 50 mg HS NILSON Administration On examination: Last Vital Signs Temp Pulse Resp BP Pulse Ox 98.7 F 98 H 20 138/78 96 04/17/17 22:00 04/17/17 22:00 04/17/17 22:00 04/17/17 22:00 04/17/17 20:41 General: In no acute distress. Oropharyngeal: No signs mucosal hemorrhage, no mucosal lesions. Extremities: Mild pallor and icterus, no pedal edema. Chest:good air entry bilaterally, clear. Abdomen: Soft, not distended, no palpable organomegaly, no masses. Neuro: Alert and oriented, non-focal. CVS: Normal sinus rhythm, S1, S2, no gallop or murmur. Skin: No rash. Labs reviewed: CBC, BMP 04/17/17 06:30 04/17/17 06:30 Assessment: Sickle SC with crisis. Empiric Abics - ? recent pneumonia. Continue present management - analagesia/hydration.
[2017-04-18] MEDS: methylPREDNISolone NA SUCC 40 MG/1 ML VIAL IVPB SCH ×3 (02:35→17:32)
[2017-04-18] MEDS ORDERED: INSULIN (NOVOLOG) ASPART 100 UNITS/ML 10ML VIAL ONE ×3 (06:27→21:48)
[2017-04-18] MEDS: INSULIN SLIDING SCALE (NOVOLOG) 1 VIAL SQ SCH ×4 (06:27→21:49)
[2017-04-18] MEDS: oxyCODONE HCL 5 MG TABLET PO PRN (06:33)
[2017-04-18] MEDS: ALBUTEROL SO4 2.5/IPRATROPIUM 0.5 INH SOL 3 ML VIAL.NEB. NEB SCH ×3 (06:35→22:34)
[2017-04-18] MEDS: SODIUM CHLORIDE 0.45% 1,000 ML IV SCH (06:47)
[2017-04-18] MEDS ORDERED: PT OWN MED DRAWER 7, Y5N ONE ×2 (09:29→09:31)
[2017-04-18] MEDS: amLODIPine BESYLATE 5 MG TABLET (FP) PO SCH (09:43)
[2017-04-18] MEDS: DOCUSATE SODIUM 100 MG CAPSULE (FP) PO SCH ×2 (09:43→21:46)
[2017-04-18] MEDS: FOLIC ACID 1 MG TABLET (FP) PO SCH (09:43)
[2017-04-18] MEDS: RANITIDINE HCL 150 MG TABLET (FP) PO SCH ×2 (09:43→21:46)
[2017-04-18] MEDS: FLUTICASONE PROP 0.05% 16 GM NASAL SPRAY NS SCH (09:45)
[2017-04-18] MEDS: CEFTRIAXONE 50 ML IVPB SCH (09:45)
[2017-04-18] MEDS: SERTRALINE HCL 25 MG TABLET (FP) PO SCH (09:46)
[2017-04-18] MEDS: AZITHROMYCIN IVPB 250 ML IVPB SCH (09:46)
--- NOTE | 2017-04-18 13:28 | PN ---
Progress Note (short form) - Note Progress Note: Feels a little better today. Less CP and SOB. Cough persists. Intake & Output 04/15/17 04/16/17 04/17/17 04/18/17 23:59 23:59 23:59 23:59 Intake Total 2049 5000 1200 Balance 2049 5000 1200 Weight 167 lb 167 lb Last Vital Signs Temp Pulse Resp BP Pulse Ox 97.7 F 112 H 20 142/76 96 04/18/17 09:05 04/18/17 09:05 04/18/17 09:05 04/18/17 09:05 04/18/17 09:05 Active Medications Albuterol/Ipratropium (Duoneb -) 1 amp NEB Q6H PRN PRN Reason: SHORTNESS OF BREATH Albuterol/Ipratropium (Duoneb -) 1 amp NEB TIDR [facility] Last Admin: 04/18/17 06:35 Dose: 1 amp Amlodipine Besylate (Norvasc -) 5 mg PO DAILY [facility] Last Admin: 04/18/17 09:43 Dose: 5 mg Clonazepam (Klonopin -) 1 mg PO BID PRN PRN Reason: ANXIETY Docusate Sodium (Colace -) 100 mg PO BID [facility] Last Admin: 04/18/17 09:43 Dose: 100 mg Fluticasone Propionate (Flonase -) 2 spray NS DAILY [facility] Last Admin: 04/18/17 09:45 Dose: 2 spray Folic Acid (Folic Acid -) 1 mg PO DAILY [facility] Last Admin: 04/18/17 09:43 Dose: 1 mg Azithromycin (Zithromax 500mg Ivpb (Pre-Docked)) 250 mls @ 250 mls/hr IVPB DAILY [facility] Last Admin: 04/18/17 09:46 Dose: 250 mls/hr Ceftriaxone Sodium (Rocephin 1gm Ivpb (Pre-Docked)) 50 mls @ 100 mls/hr IVPB DAILY [facility] Last Admin: 04/18/17 09:45 Dose: 100 mls/hr Sodium Chloride (1/2 Normal Saline) 1,000 mls @ 75 mls/hr IV ASDIR [facility] Stop: 04/19/17 01:04 Last Admin: 04/17/17 12:13 Dose: 75 mls/hr Insulin Aspart (Novolog Vial Sliding Scale -) 1 vial SQ ACHS [facility] PRN Reason: Protocol Last Admin: 04/18/17 11:30 Dose: 8 unit Methylprednisolone Sodium Succinate (Solu-Medrol -) 60 mg IVPB Q8H-IV [facility] Last Admin: 04/18/17 09:45 Dose: 60 mg Morphine Sulfate (Morphine Injection -) 1 mg IVPUSH Q4H PRN PRN Reason: SEVERE PAIN Last Admin: 04/17/17 20:25 Dose: 1 mg Oxycodone HCl (Roxicodone -) 5 mg PO Q4H PRN PRN Reason: PAIN Last Admin: 04/18/17 06:33 Dose: 5 mg Ranitidine HCl (Zantac -) 150 mg PO BID [facility] Last Admin: 04/18/17 09:43 Dose: 150 mg Sertraline HCl (Zoloft -) 25 mg PO DAILY [facility] Last Admin: 04/18/17 09:46 Dose: 25 mg Trazodone HCl (Desyrel -) 50 mg PO HS [facility] Last Admin: 04/17/17 21:18 Dose: 50 mg Constitutional: Yes: No Distress, Obese Eyes: Yes: Conjunctiva Clear, EOM Intact HENT: Yes: Atraumatic, Normocephalic Neck: Yes: Supple, Trachea Midline Cardiovascular: Yes: Regular Rate and Rhythm Respiratory: Yes: Cough, Rhonchi, Tachypnea, Wheezes. No: Accessory Muscle Use , Rales, Stridor ...Inspection: Yes: WNL ...Clubbing: No Gastrointestinal: Yes: WNL, Normal Bowel Sounds, Soft Renal/: Yes: WNL Musculoskeletal: Yes: WNL Extremities: Yes: WNL Edema: No Peripheral Pulses WNL: Yes Integumentary: Yes: WNL Neurological: Yes: WNL, Alert, Oriented ...Motor Strength: WNL Psychiatric: Yes: WNL, Alert, Oriented Labs: Laboratory Results - last 24 hr 04/17/17 04/17/17 04/17/17 06:30 16:24 21:16 POC Glucometer 275 395 Free T3 3.1 04/18/17 04/18/17 05:46 11:25 POC Glucometer 269 349 Free T3 Problem List - Problems (1) Chest pain Code(s): R07.9 - CHEST PAIN, UNSPECIFIED Qualifiers: Chest pain type: unspecified Qualified Code(s): R07.9 - Chest pain, unspecified (2) DVT (deep venous thrombosis) Code(s): I82.409 - ACUTE EMBOLISM AND THOMBOS UNSP DEEP VN UNSP LOWER EXTREMITY (3) HTN (hypertension) Code(s): I10 - ESSENTIAL (PRIMARY) HYPERTENSION Qualifiers: Hypertension type: essential hypertension Qualified Code(s): I10 - Essential (primary) hypertension (4) Acute bronchospasm Code(s): J98.01 - ACUTE BRONCHOSPASM (5) Cough Code(s): R05 - COUGH (6) Musculoskeletal pain Code(s): M79.1 - MYALGIA Assessment/Plan IV Steroids BD TX Empiric ABX noted O2 as needed VTE prophylaxis Nasal spray (NO indication of acute chest syndrome) Dr Barajas Problem List - Problems (1) Chest pain Code(s): R07.9 - CHEST PAIN, UNSPECIFIED Qualifiers: Chest pain type: unspecified Qualified Code(s): R07.9 - Chest pain, unspecified (2) DVT (deep venous thrombosis) Code(s): I82.409 - ACUTE EMBOLISM AND THOMBOS UNSP DEEP VN UNSP LOWER EXTREMITY (3) HTN (hypertension) Code(s): I10 - ESSENTIAL (PRIMARY) HYPERTENSION Qualifiers: Hypertension type: essential hypertension Qualified Code(s): I10 - Essential (primary) hypertension (4) Acute bronchospasm Code(s): J98.01 - ACUTE BRONCHOSPASM (5) Cough Code(s): R05 - COUGH (6) Musculoskeletal pain Code(s): M79.1 - [place]
--- NOTE | 2017-04-18 13:31 | PN ---
Progress Note (short form) - Note Progress Note: Patient is feeling better. But still coughing, no fever or chills, but c/o generalized pain. Temperature 97.7 F 04/18/17 09:05 Pulse Rate 112 H 04/18/17 09:05 Respiratory Rate 20 04/18/17 09:05 Blood Pressure 142/76 04/18/17 09:05 O2 Sat by Pulse Oximetry (%) 96 04/18/17 09:05 GENERAL: The patient is awake, alert, and fully oriented, in no acute distress. HEAD: Normal with no signs of trauma. EYES: PERRL, extraocular movements intact, sclera anicteric, conjunctiva clear. ENT: Ears normal, oropharynx clear without exudates, moist mucous membranes. NECK: Trachea midline, full range of motion, supple. LUNGS: positive for wheezing BL less than yesterday ,no crackles, no accessory muscle use. HEART: Regular rate and rhythm, S1, S2 positive, without murmur, rub or gallop. ABDOMEN: Soft, nontender, nondistended, normoactive bowel sounds, no guarding, no rebound, no hepatosplenomegaly, no masses. EXTREMITIES: 2+ pulses, warm, well-perfused, no edema. NEUROLOGICAL: Cranial nerves II through XII grossly intact. Normal speech. gait is stable PSYCH: Normal mood, normal affect. SKIN: Warm, dry, normal turgor, no rashes or lesions noted CBCD WBC 12.3 K/mm3 (4.0-10.0) H D 04/17/17 06:30 RBC 4.32 M/mm3 (3.60-5.2) 04/17/17 06:30 Hgb 11.6 GM/dL (10.7-15.3) 04/17/17 06:30 Hct 33.3 % (32.4-45.2) 04/17/17 06:30 MCV 77.2 fl (80-96) L 04/17/17 06:30 MCHC 34.8 g/dl (32.0-36.0) 04/17/17 06:30 RDW 20.1 % (11.6-15.6) H 04/17/17 06:30 Plt Count 181 K/MM3 (134-434) 04/17/17 06:30 MPV 10.0 fl (7.5-11.1) 04/17/17 06:30 CMP Sodium 140 mmol/L (136-145) 04/17/17 06:30 Potassium 4.6 mmol/L (3.5-5.1) 04/17/17 06:30 Chloride 103 mmol/L (98-107) 04/17/17 06:30 Carbon Dioxide 30 mmol/L (21-32) 04/17/17 06:30 Anion Gap 7 (8-16) L 04/17/17 06:30 BUN 9 mg/dL (7-18) 04/17/17 06:30 Creatinine 0.6 mg/dL (0.55-1.02) 04/17/17 06:30 Creat Clearance w eGFR > 60 (>60) 04/16/17 01:03 Random Glucose 161 mg/dL (74-106) H D 04/17/17 06:30 Calcium 8.6 mg/dL (8.5-10.1) 04/17/17 06:30 Total Bilirubin 1.0 mg/dL (0.2-1.0) D 04/16/17 01:03 AST 36 U/L (15-37) D 04/16/17 01:03 ALT 38 U/L (12-78) D 04/16/17 01:03 Alkaline Phosphatase 116 U/L (45-117) D 04/16/17 01:03 Total Protein 6.7 g/dl (6.4-8.2) 04/16/17 01:03 Albumin 3.4 g/dl (3.4-5.0) 04/16/17 01:03 CARDIAC ENZYMES Creatine Kinase 52 IU/L (26-192) 04/16/17 01:03 Troponin I < 0.02 ng/ml (0.00-0.05) 04/17/17 06:30 Current Medications Generic Name Dose Route Start Last Admin Trade Name Freq PRN Reason Stop Dose Admin Albuterol/Ipratropium 1 amp 04/17/17 11:44 Duoneb - NEB Q6H PRN SHORTNESS OF BREATH Albuterol/Ipratropium 1 amp 04/17/17 14:00 04/18/17 06:35 Duoneb - NEB 1 amp TIDR NILSON Administration Amlodipine Besylate 5 mg 04/16/17 10:00 04/18/17 09:43 Norvasc - PO 5 mg DAILY NILSON Administration Clonazepam 1 mg 04/16/17 08:19 Klonopin - PO BID PRN ANXIETY Docusate Sodium 100 mg 04/16/17 10:00 04/18/17 09:43 Colace - PO 100 mg BID NILSON Administration Fluticasone Propionate 2 spray 04/17/17 14:30 04/18/17 09:45 Flonase - NS 2 spray DAILY NILSON Administration Folic Acid 1 mg 04/16/17 10:00 04/18/17 09:43 Folic Acid - PO 1 mg DAILY NILSON Administration Azithromycin 250 mls @ 250 mls/hr 04/17/17 11:30 04/18/17 09:46 Zithromax 500mg Ivpb (Pre-Docked) IVPB 250 mls/hr DAILY NILSON Administration Ceftriaxone Sodium 50 mls @ 100 mls/hr 04/17/17 11:30 04/18/17 09:45 Rocephin 1gm Ivpb (Pre-Docked) IVPB 100 mls/hr DAILY NILSON Administration Sodium Chloride 1,000 mls @ 75 mls/hr 04/17/17 11:45 04/17/17 12:13 1/2 Normal Saline IV 04/19/17 01:04 75 mls/hr ASDIR NILSON Administration Insulin Aspart 1 vial 04/16/17 11:00 04/18/17 11:30 Novolog Vial Sliding Scale - SQ 8 unit ACHS NILSON Administration Protocol Methylprednisolone Sodium Succinate 60 mg 04/17/17 13:30 04/18/17 09:45 Solu-Medrol - IVPB 60 mg Q8H-IV NILSON Administration Morphine Sulfate 1 mg 04/16/17 08:22 04/17/17 20:25 Morphine Injection - IVPUSH 1 mg Q4H PRN Administration SEVERE PAIN Oxycodone HCl 5 mg 04/17/17 11:29 04/18/17 06:33 Roxicodone - PO 5 mg Q4H PRN Administration PAIN Ranitidine HCl 150 mg 04/16/17 10:30 04/18/17 09:43 Zantac - PO 150 mg BID NILSON Administration Sertraline HCl 25 mg 04/16/17 10:00 04/18/17 09:46 Zoloft - PO 25 mg DAILY NILSON Administration Trazodone HCl 50 mg 04/16/17 22:00 04/17/17 21:18 Desyrel - PO 50 mg HS [facility] Administration Home Medications Medication Instructions Recorded Docusate Sodium [Colace -] 100 mg PO BID 01/01/17 Folic Acid 1 mg PO DAILY 01/01/17 Oxycodone HCl 10 mg PO QID 01/01/17 Amoxicillin/Potassium Clav 1 each PO BID #14 tablet 01/02/17 [Augmentin 875-125 Tablet] Ibuprofen [Motrin -] 600 mg PO QID PRN #30 tablet 01/02/17 Amlodipine Besylate [Norvasc -] 5 mg PO DAILY 04/16/17 Clonazepam [Klonopin -] 2 mg PO BID PRN 04/16/17 Famotidine [Heartburn Prevention] 20 mg PO BID 04/16/17 Metformin HCl [Metformin HCl ER] 500 mg PO ACBK 04/16/17 Sertraline HCl [Zoloft] 25 mg PO DAILY 04/16/17 Tramadol HCl 50 mg PO DAILY PRN 04/16/17 Trazodone HCl 50 mg PO HS 04/16/17 Microbiology 04/16/17 01:05 Blood - Peripheral Venous Blood Culture - Preliminary NO GROWTH OBTAINED AFTER 48 HOURS, INCUBATION TO CONTINUE FOR 3 DAYS. 04/16/17 01:03 Blood - Peripheral Venous Blood Culture - Preliminary NO GROWTH OBTAINED AFTER 48 HOURS, INCUBATION TO CONTINUE FOR 3 DAYS. 04/17/17 11:50 Nasopharyngeal Swab Influenza Types A,B Antigen (CORKY) - Final 04/17/17 11:50 Nasopharyngeal Swab - Final 04/16/17 01:03 Urine - Urine Clean Catch Urine Culture - Final NO GROWTH OBTAINED A/P: This 41 yr old female with c/o general body pains, chest pain with hx of sickle cell. # Acute Bronchitis with exacerbation of Asthma continue IV antibiotic , continue nebulizer tx, IV rocephin 1gm daily /Zithromax 500mg x 3 days IV. will stop Motrin for now since has asthma which can make her asthma worse. Pulmonary consult appreciated . negative Influenza. # Acute generalized pain/Fibromylagic Pain ,Lyme titer is pending , TSH/FT4 levels; IVf 1/2 NS at 75cc/hr x 2 liter # Chest pain is due to her coughing and wheezing doubt Sickle cell crisis. will continue her pain meds. morphine/oxycodone prn # Sickle Cell disease continue her folic acid, appreciate Hem consult # acute leukocytosis due to her Bronchitis ;incentive spirometer, IV antibiotic # T2DM on achs insulin, will hold Metformin for now DVT Px: Lovenox sq, early ambulation. SCDs while in bed Visit type - Emergency Visit Emergency Visit: Yes ED Registration Date: 04/16/17 Care time: The patient presented to the Emergency Department on the above date and was hospitalized for further evaluation of their emergent condition. - New Patient This patient is new to me today: No - Critical Care Critical Care patient: No
--- NOTE | 2017-04-18 14:05 | PN ---
Progress Note (short form) - Note Progress Note: Patient seen in follow up. No events overnight. Ongoing intermittent headache. Reports some coughing. No SOB at rest. Meds reviewed. Current Medications Generic Name Dose Route Start Last Admin Trade Name Freq PRN Reason Stop Dose Admin Albuterol/Ipratropium 1 amp 04/17/17 11:44 Duoneb - NEB Q6H PRN SHORTNESS OF BREATH Albuterol/Ipratropium 1 amp 04/17/17 14:00 04/18/17 06:35 Duoneb - NEB 1 amp TIDR NILSON Administration Amlodipine Besylate 5 mg 04/16/17 10:00 04/18/17 09:43 Norvasc - PO 5 mg DAILY NILSON Administration Clonazepam 1 mg 04/16/17 08:19 Klonopin - PO BID PRN ANXIETY Docusate Sodium 100 mg 04/16/17 10:00 04/18/17 09:43 Colace - PO 100 mg BID NILSON Administration Fluticasone Propionate 2 spray 04/17/17 14:30 04/18/17 09:45 Flonase - NS 2 spray DAILY NILSON Administration Folic Acid 1 mg 04/16/17 10:00 04/18/17 09:43 Folic Acid - PO 1 mg DAILY NILSON Administration Guaifenesin 10 ml 04/18/17 13:32 Robitussin - PO Q4H PRN COUGH Azithromycin 250 mls @ 250 mls/hr 04/17/17 11:30 04/18/17 09:46 Zithromax 500mg Ivpb (Pre-Docked) IVPB 250 mls/hr DAILY NILSON Administration Ceftriaxone Sodium 50 mls @ 100 mls/hr 04/17/17 11:30 04/18/17 09:45 Rocephin 1gm Ivpb (Pre-Docked) IVPB 100 mls/hr DAILY NILSON Administration Sodium Chloride 1,000 mls @ 75 mls/hr 04/17/17 11:45 04/17/17 12:13 1/2 Normal Saline IV 04/19/17 01:04 75 mls/hr ASDIR NILSON Administration Insulin Aspart 1 vial 04/16/17 11:00 04/18/17 11:30 Novolog Vial Sliding Scale - SQ 8 unit ACHS NILSON Administration Protocol Methylprednisolone Sodium Succinate 60 mg 04/17/17 13:30 04/18/17 09:45 Solu-Medrol - IVPB 60 mg Q8H-IV NILSON Administration Morphine Sulfate 1 mg 04/16/17 08:22 04/17/17 20:25 Morphine Injection - IVPUSH 1 mg Q4H PRN Administration SEVERE PAIN Oxycodone HCl 5 mg 04/17/17 11:29 04/18/17 06:33 Roxicodone - PO 5 mg Q4H PRN Administration PAIN Ranitidine HCl 150 mg 04/16/17 10:30 04/18/17 09:43 Zantac - PO 150 mg BID NILSON Administration Sertraline HCl 25 mg 04/16/17 10:00 04/18/17 09:46 Zoloft - PO 25 mg DAILY NILSON Administration Trazodone HCl 50 mg 04/16/17 22:00 04/17/17 21:18 Desyrel - PO 50 mg HS NILSON Administration On examination: Last Vital Signs Temp Pulse Resp BP Pulse Ox 97.7 F 112 H 20 142/76 96 04/18/17 09:05 04/18/17 09:05 04/18/17 09:05 04/18/17 09:05 04/18/17 09:05 General: In no acute distress. Oropharyngeal: No signs mucosal hemorrhage, no mucosal lesions. Extremities: Mild pallor and icterus, no pedal edema. Chest:good air entry bilaterally, clear. Abdomen: Soft, not distended, no palpable organomegaly, no masses. Neuro: Alert and oriented, non-focal. CVS: Normal sinus rhythm, S1, S2, no gallop or murmur. Skin: No rash. Labs reviewed: CBC, BMP 04/17/17 06:30 04/17/17 06:30 Assessment: Sickle SC with crisis. Empiric Abics - ? recent pneumonia. Continue present management - analagesia/hydration. Ongoing chronic pain issues - likely unrelated to her hematological disorder. Specialist pain management warranted.
[2017-04-18] MEDS: guaiFENesin 200 MG/10 ML 10 ML UNIT-DOSE CUPS PO PRN ×2 (14:22→21:49)
[2017-04-18] MEDS: morphine CARPU-JECT 2 MG/1 ML DISP.SYRIN IVPUSH PRN (19:45)
[2017-04-18] MEDS: traZODone HCL 50 MG TABLET (FP) PO SCH (21:49)
[2017-04-19] MEDS: oxyCODONE HCL 5 MG TABLET PO PRN (00:28)
[2017-04-19] MEDS: methylPREDNISolone NA SUCC 40 MG/1 ML VIAL IVPB SCH ×2 (01:12→09:18)
[2017-04-19] MEDS: INSULIN SLIDING SCALE (NOVOLOG) 1 VIAL SQ SCH ×6 (06:24→22:23)
[2017-04-19] MEDS ORDERED: INSULIN (NOVOLOG) ASPART 100 UNITS/ML 10ML VIAL ONE ×4 (06:28→22:25)
[2017-04-19] MEDS: ALBUTEROL SO4 2.5/IPRATROPIUM 0.5 INH SOL 3 ML VIAL.NEB. NEB SCH ×3 (06:33→22:10)
[2017-04-19 07:16] LABS: MCHC 34.4 g/dl (32.0-36.0); MEAN CELL VOLUME 78.3 fl (80-96); MEAN PLT VOLUME 10.8 fl (7.5-11.1); PLATELET COUNT 238 K/MM3 (134-434); RDW 20.9 % (11.6-15.6)
[2017-04-19 07:24] LABS: ALBUMIN 3.5 g/dl (3.4-5.0); ANION GAP 11 (8-16); CO2 26 mmol/L (21-32); CREATININE 0.7 mg/dL (0.55-1.02); SGOT/AST 16 U/L (15-37); SGPT/ALT 34 U/L (12-78)
[2017-04-19 07:27] LABS: ALK PHOS 112 U/L (45-117); BILIRUBIN,TOTAL 1.1 mg/dL (0.2-1.0); TOT PROT 6.8 g/dl (6.4-8.2)
[2017-04-19 07:33] LABS: GLUCOSE,RANDOM 332 mg/dL (74-106)
[2017-04-19] MEDS: RANITIDINE HCL 150 MG TABLET (FP) PO SCH ×2 (09:18→21:49)
[2017-04-19] MEDS: amLODIPine BESYLATE 5 MG TABLET (FP) PO SCH (09:18)
[2017-04-19] MEDS: clonazePAM 0.5 MG TABLET PO PRN (09:18)
[2017-04-19] MEDS: FOLIC ACID 1 MG TABLET (FP) PO SCH (09:18)
[2017-04-19] MEDS: CEFTRIAXONE 50 ML IVPB SCH (09:18)
[2017-04-19] MEDS: SERTRALINE HCL 25 MG TABLET (FP) PO SCH (09:18)
[2017-04-19] MEDS: DOCUSATE SODIUM 100 MG CAPSULE (FP) PO SCH ×2 (09:18→21:49)
[2017-04-19] MEDS: AZITHROMYCIN IVPB 250 ML IVPB SCH (09:19)
[2017-04-19] MEDS: FLUTICASONE PROP 0.05% 16 GM NASAL SPRAY NS SCH (09:21)
--- NOTE | 2017-04-19 10:34 | PN ---
Progress Note (short form) - Note Progress Note: Patient is c/o having LE pain. States her wheezing is better, but continues to have mild headache. Temperature 97.7 F 04/19/17 06:00 Pulse Rate 91 H 04/19/17 06:00 Respiratory Rate 22 04/19/17 06:00 Blood Pressure 116/74 04/19/17 06:00 O2 Sat by Pulse Oximetry (%) 95 04/18/17 21:00 GENERAL: The patient is awake, alert, and fully oriented, in no acute distress. HEAD: Normal with no signs of trauma. EYES: PERRL, extraocular movements intact, sclera anicteric, conjunctiva clear. ENT: Ears normal, oropharynx clear without exudates, moist mucous membranes. NECK: Trachea midline, full range of motion, supple. LUNGS: mild wheezing BL less than yesterday ,no crackles, no accessory muscle use. HEART: Regular rate and rhythm, S1, S2 positive, without murmur, rub or gallop. ABDOMEN: Soft, nontender, nondistended, normoactive bowel sounds, no guarding, no rebound, no hepatosplenomegaly, no masses. EXTREMITIES: 2+ pulses, warm, well-perfused, no edema. NEUROLOGICAL: Cranial nerves II through XII grossly intact. Normal speech. PSYCH: Normal mood, normal affect. SKIN: Warm, dry, normal turgor, no rashes or lesions noted CBCD WBC 34.0 K/mm3 (4.0-10.0) H* D 04/19/17 06:15 RBC 4.26 M/mm3 (3.60-5.2) 04/19/17 06:15 Hgb 11.5 GM/dL (10.7-15.3) 04/19/17 06:15 Hct 33.4 % (32.4-45.2) 04/19/17 06:15 MCV 78.3 fl (80-96) L 04/19/17 06:15 MCHC 34.4 g/dl (32.0-36.0) 04/19/17 06:15 RDW 20.9 % (11.6-15.6) H 04/19/17 06:15 Plt Count 238 K/MM3 (134-434) D 04/19/17 06:15 MPV 10.8 fl (7.5-11.1) 04/19/17 06:15 CMP Sodium 138 mmol/L (136-145) 04/19/17 06:15 Potassium 4.7 mmol/L (3.5-5.1) 04/19/17 06:15 Chloride 101 mmol/L (98-107) 04/19/17 06:15 Carbon Dioxide 26 mmol/L (21-32) 04/19/17 06:15 Anion Gap 11 (8-16) 04/19/17 06:15 BUN 10 mg/dL (7-18) 04/19/17 06:15 Creatinine 0.7 mg/dL (0.55-1.02) 04/19/17 06:15 Creat Clearance w eGFR > 60 (>60) 04/19/17 06:15 Random Glucose 332 mg/dL (74-106) H* D 04/19/17 06:15 Calcium 9.0 mg/dL (8.5-10.1) 04/19/17 06:15 Total Bilirubin 1.1 mg/dL (0.2-1.0) H 04/19/17 06:15 AST 16 U/L (15-37) D 04/19/17 06:15 ALT 34 U/L (12-78) 04/19/17 06:15 Alkaline Phosphatase 112 U/L (45-117) 04/19/17 06:15 Total Protein 6.8 g/dl (6.4-8.2) 04/19/17 06:15 Albumin 3.5 g/dl (3.4-5.0) 04/19/17 06:15 CARDIAC ENZYMES Creatine Kinase 52 IU/L (26-192) 04/16/17 01:03 Troponin I < 0.02 ng/ml (0.00-0.05) 04/17/17 06:30 Current Medications Generic Name Dose Route Start Last Admin Trade Name Freq PRN Reason Stop Dose Admin Albuterol/Ipratropium 1 amp 04/17/17 11:44 Duoneb - NEB Q6H PRN SHORTNESS OF BREATH Albuterol/Ipratropium 1 amp 04/17/17 14:00 04/19/17 06:33 Duoneb - NEB 1 amp TIDR NILSON Administration Amlodipine Besylate 5 mg 04/16/17 10:00 04/19/17 09:18 Norvasc - PO 5 mg DAILY NILSON Administration Clonazepam 1 mg 04/16/17 08:19 04/19/17 09:18 Klonopin - PO 1 mg BID PRN Administration ANXIETY Docusate Sodium 100 mg 04/16/17 10:00 04/19/17 09:18 Colace - PO 100 mg BID NILSON Administration Fluticasone Propionate 2 spray 04/17/17 14:30 04/19/17 09:21 Flonase - NS 2 spray DAILY NILSON Administration Folic Acid 1 mg 04/16/17 10:00 04/19/17 09:18 Folic Acid - PO 1 mg DAILY NILSON Administration Guaifenesin 10 ml 04/18/17 13:32 04/18/17 21:49 Robitussin - PO 10 ml Q4H PRN Administration COUGH Azithromycin 250 mls @ 250 mls/hr 04/17/17 11:30 04/19/17 09:19 Zithromax 500mg Ivpb (Pre-Docked) IVPB 250 mls/hr DAILY NILSON Administration Ceftriaxone Sodium 50 mls @ 100 mls/hr 04/17/17 11:30 04/19/17 09:18 Rocephin 1gm Ivpb (Pre-Docked) IVPB 100 mls/hr DAILY NILSON Administration Insulin Aspart 1 vial 04/16/17 11:00 04/19/17 06:24 Novolog Vial Sliding Scale - SQ 8 unit ACHS NILSON Administration Protocol Methylprednisolone Sodium Succinate 60 mg 04/17/17 13:30 04/19/17 09:18 Solu-Medrol - IVPB 60 mg Q8H-IV NILSON Administration Morphine Sulfate 1 mg 04/16/17 08:22 04/18/17 19:45 Morphine Injection - IVPUSH 1 mg Q4H PRN Administration SEVERE PAIN Oxycodone HCl 5 mg 04/17/17 11:29 04/19/17 00:28 Roxicodone - PO 5 mg Q4H PRN Administration PAIN Ranitidine HCl 150 mg 04/16/17 10:30 04/19/17 09:18 Zantac - PO 150 mg BID NILSON Administration Sertraline HCl 25 mg 04/16/17 10:00 04/19/17 09:18 Zoloft - PO 25 mg DAILY NILSON Administration Trazodone HCl 50 mg 04/16/17 22:00 04/18/17 21:49 Desyrel - PO Not Given HS [facility] Home Medications Medication Instructions Recorded Docusate Sodium [Colace -] 100 mg PO BID 01/01/17 Folic Acid 1 mg PO DAILY 01/01/17 Oxycodone HCl 10 mg PO QID 01/01/17 Amoxicillin/Potassium Clav 1 each PO BID #14 tablet 01/02/17 [Augmentin 875-125 Tablet] Ibuprofen [Motrin -] 600 mg PO QID PRN #30 tablet 01/02/17 Amlodipine Besylate [Norvasc -] 5 mg PO DAILY 04/16/17 Clonazepam [Klonopin -] 2 mg PO BID PRN 04/16/17 Famotidine [Heartburn Prevention] 20 mg PO BID 04/16/17 Metformin HCl [Metformin HCl ER] 500 mg PO ACBK 04/16/17 Sertraline HCl [Zoloft] 25 mg PO DAILY 04/16/17 Tramadol HCl 50 mg PO DAILY PRN 04/16/17 Trazodone HCl 50 mg PO HS 04/16/17 04/16/17 01:05 Blood - Peripheral Venous Blood Culture - Preliminary NO GROWTH OBTAINED AFTER 48 HOURS, INCUBATION TO CONTINUE FOR 3 DAYS. 04/16/17 01:03 Blood - Peripheral Venous Blood Culture - Preliminary NO GROWTH OBTAINED AFTER 48 HOURS, INCUBATION TO CONTINUE FOR 3 DAYS. 04/17/17 11:50 Nasopharyngeal Swab Influenza Types A,B Antigen (CORKY) - Final 04/17/17 11:50 Nasopharyngeal Swab - Final 04/16/17 01:03 Urine - Urine Clean Catch Urine Culture - Final NO GROWTH OBTAINED A/P: This 41 yr old female with c/o general body pains, chest pain with hx of sickle cell. # Acute Bronchitis with exacerbation of Asthma continue IV antibiotic will stop IV steroid due to elevated blood sugar and Patient went into sickle cell crisis in the past, last admission as per ,discussed with and will stop the steroid since she is doing better in terms of her asthma. continue nebulizer tx, IV rocephin 1gm daily /Zithromax 500mg IV x 3 days will stop Motrin for now since has asthma which can make her asthma worse. Pulmonary consult appreciated . negative Influenza. # Acute generalized pain/Fibromylagic Pain ,Lyme titer is pending , TSH/FT4 levels; IVf 1/2 NS at 75cc/hr # Chest pain improved will continue her pain meds. morphine/oxycodone prn # Sickle Cell disease continue her folic acid, appreciate Hem consult # acute leukocytosis due to steroids ;incentive spirometer, IV antibiotic # T2DM on q4h insulin with coverage since sugar was elevated due to her use of steroids , will hold Metformin for now DVT Px: Lovenox sq, early ambulation. SCDs while in bed Steroids were stopped since blood sugar is getting elevated also discussed with that steroids can make her go into sickle cell crisis. Patient c/o having lower extremity pain. discussed with will see the patient and ordered LDL level. Visit type - Emergency Visit Emergency Visit: Yes ED Registration Date: 04/16/17 Care time: The patient presented to the Emergency Department on the above date and was hospitalized for further evaluation of their emergent condition. - New Patient This patient is new to me today: No - Critical Care Critical Care patient: No
[2017-04-19] MEDS ORDERED: methylPREDNISolone NA SUCC 40 MG/1 ML VIAL IVPB SCH (11:15)
--- NOTE | 2017-04-19 11:18 | PN ---
Progress Note (short form) - Note Progress Note: PULMONARY CHART REVIEWED MODERATE SUBJECTIVE IMPROVEMENT VSS/AFEBRILE ANICTERIC B/L WHEEZES AND RHONCHI SCATTERED S1S2 BS+ NO EDEMA LABS/MEDS/NOTES/IMAGING/MICRO/MEDS REVIEWED WBC 34K ? STEROIDS WILL REPEAT CBC WITH DIFF LUNG NODULE NOTED ON CT CHEST FOR WHICH FOLLOW UP IS REQUIRED (1) Chest pain Code(s): R07.9 - CHEST PAIN, UNSPECIFIED Qualifiers: Chest pain type: unspecified Qualified Code(s): R07.9 - Chest pain, unspecified (2) DVT (deep venous thrombosis) Code(s): I82.409 - ACUTE EMBOLISM AND THOMBOS UNSP DEEP VN UNSP LOWER EXTREMITY (3) HTN (hypertension) Code(s): I10 - ESSENTIAL (PRIMARY) HYPERTENSION Qualifiers: Hypertension type: essential hypertension Qualified Code(s): I10 - Essential (primary) hypertension (4) Acute bronchospasm Code(s): J98.01 - ACUTE BRONCHOSPASM (5) Cough Code(s): R05 - COUGH (6) Musculoskeletal pain Code(s): M79.1 - MYALGIA Assessment/Plan IV Steroids to be reduced repeat cbc/diff BD TX Empiric ABX noted O2 as needed VTE prophylaxis CT CHEST F/U OUTPATIENT FOR NODULE Meg HARMAN MD
[2017-04-19 11:19] LABS: ANISOCYTOSIS 2+; HYPOCHROMIA 1+; MICROCYTOSIS 2+; PLATELET ESTIMATE ADEQUATE (NORMAL); TARGET CELLS 4+
[2017-04-19 11:51] LABS: BASOPHIL 0.4 % (0-2.0); MCHC 34.9 g/dl (32.0-36.0); MEAN CELL VOLUME 77.5 fl (80-96); MEAN PLT VOLUME 10.3 fl (7.5-11.1); NEUTROPHILS 88.7 % (42.8-82.8); PLATELET COUNT 235 K/MM3 (134-434); RDW 20.4 % (11.6-15.6); WHITE BLOOD COUNT 33.9 K/mm3 (4.0-10.0)
[2017-04-19] MEDS ORDERED: morphine CARPU-JECT 2 MG/1 ML DISP.SYRIN IVPUSH PRN (14:36)
--- NOTE | 2017-04-19 16:41 | CON.NEURO ---
Consult Consult Specialty:: Neurology Referred by:: Gigi Reason for Consultation:: Patient with SC disease and Headache - History of Present Illness Chief Complaint: Headache History of Present Illness: Patient has long history of headaches,which she gets quite frequently, often for days on end, with nausea and dizziness, no phonophobia, questionable photophobia, followed at [facility], previously by Dr. Lui in [place]. She has headaches for about 10 years. The headaches are severe and holocephalgic. She has tried multiple acute and prophylactic agents without benefit she says, including Depakote, amitritpyline, Topamax, and naproxen. She has never used Botox. She says that she has had a stroke in the past but is vague about the details and contradicts this when telling me that Dr. Lui had obtained imaging of her head that was normal, although her back showed a herniated disc. She also complains of vertigo. - History Source History Provided By: Patient - Past Medical History ADMINISTRATION SPECIALIST: Yes: Migraine Cardio/Vascular: Yes: Deep Vein Thrombosis, HTN ...LMP: 03/31/17 ...: No - Past Surgical History Past Surgical History: Yes: Cataract Removal, Cholecystectomy - Alcohol/Substance Use Hx Alcohol Use: No History of Substance Use: reports: None - Smoking History Smoking history: Former smoker Have you smoked in the past 12 months: No Aproximately how many cigarettes per day: 3 If you are a former smoker, when did you quit?: 5 MONTHS AGO Home Medications - Allergies Allergies/Adverse Reactions: Allergies Allergy/AdvReac Type Severity Reaction Status Date / Time No Known Allergies Allergy Verified 01/01/17 15:08 - Home Medications Home Medications: Ambulatory Orders Docusate Sodium [Colace -] 100 mg PO BID 01/01/17 Folic Acid 1 mg PO DAILY 01/01/17 Oxycodone HCl 10 mg PO QID 01/01/17 Amoxicillin/Potassium Clav [Augmentin 875-125 Tablet] 1 each PO BID #14 tablet 01/02/17 Ibuprofen [Motrin -] 600 mg PO QID PRN #30 tablet 01/02/17 Amlodipine Besylate [Norvasc -] 5 mg PO DAILY 04/16/17 Clonazepam [Klonopin -] 2 mg PO BID PRN 04/16/17 Famotidine [Heartburn Prevention] 20 mg PO BID 04/16/17 Metformin HCl [Metformin HCl ER] 500 mg PO ACBK 04/16/17 Sertraline HCl [Zoloft] 25 mg PO DAILY 04/16/17 Tramadol HCl 50 mg PO DAILY PRN 04/16/17 Trazodone HCl 50 mg PO HS 04/16/17 Physical Exam-Neuro Vital Signs: Vital Signs Temperature 97.9 F 04/19/17 15:23 Pulse Rate 104 H 04/19/17 15:23 Respiratory Rate 22 04/19/17 06:00 Blood Pressure 142/81 04/19/17 15:23 O2 Sat by Pulse Oximetry (%) 95 04/18/17 21:00 Labs: CBC, BMP 04/19/17 11:35 04/19/17 06:15 INR, PTT INR 1.15 (0.82-1.09) H 04/16/17 01:03 - Neuro Exam Cranial Nerves II-XII Intact: Yes DTR's: 2+ Left Bicep, 2+ Right Bicep, 2+ Left Tricep, 2+ Right Tricep, 2+ Left Brachioradialis, 2+ Right Brachioradialis, 2+ Left Achilles, 2+ Right Achilles Babinski: Absent Response to light touch: Normal Motor Strength: 5/5: Left Arm, Right Arm, Left Leg, Right Leg Gait: Deferred NIH Stroke Scale - Total Score NIH Stroke Scale Score: 0 Problem List - Problems (1) Chronic migraine without aura, with status migrainosus Assessment/Plan: Will try adding Depacon [address] scan head. Code(s): G43.701 - CHRONIC MIGRAINE W/O AURA, NOT INTRACTABLE, W STAT MIGR
[2017-04-19] MEDS ORDERED: INSULIN (NOVOLOG) ASPART 100 UNITS/ML 10ML VIAL SQ ONE ×2 (17:08→22:05)
[2017-04-19] MEDS ORDERED: HYDROmorphone HCL CARPU-JECT 2 MG/1 ML DISP.SYRIN IVPB PRN (21:06)
[2017-04-19] MEDS: SODIUM CHLORIDE 1,000 ML IV SCH (21:48)
[2017-04-19] MEDS: HYDROmorphone HCL CARPU-JECT 2 MG/1 ML DISP.SYRIN IVPB PRN (21:49)
[2017-04-19] MEDS: traZODone HCL 50 MG TABLET (FP) PO SCH (21:53)
[2017-04-19] MEDS: VALPROATE SODIUM 500 MG/5 ML VIAL IVPB SCH (21:54)
--- NOTE | 2017-04-19 22:10 | HOSP ---
Subjective - Review of Symptoms Subjective: Saw pt. for shortness of breath Pt. able to speak fulls sentences at bedside, denies any chest pain/pressure States she has low back pain from her hernia Physical: VS: Vital Signs Period Temp Pulse Resp BP Sys/Tompkins Pulse Ox Last 24 Hr 97.1 F-98.3 F 87-104 20-22 116-142/74-87 95 GEN: NAD, Speaking full sentences in no acute distress HEENT: NCAT, PERRL CARD: RRR S1, S2 RESP: Diffuse bilateral expiratory wheeze ABD: BSX4, NTD to palpation EXT: - C/C/E A/P.) 41 F with HgBSC in pain crisis/ Asthma Exacerbation 1.) Pain crisis ro acute chest - STAT CXR - 02 nC - ABG if worsening Hypoxia - Pain Control and Incentive Spirometry - Will discuss case with ICU- Case discussed with ICU intensivst, will observe overnight for now and low threshold for worsening pain, hypoxia to send to ICU 2.) Asthma Exacerbation - C/W Nebs ADDENDUM: CXR- No Acute Process Physical Examination Vital Signs: Vital Signs Temperature 97.1 F L 04/19/17 18:00 Pulse Rate 98 H 04/19/17 18:00 Respiratory Rate 20 04/19/17 18:00 Blood Pressure 135/84 04/19/17 18:00 O2 Sat by Pulse Oximetry (%) 95 04/19/17 09:00 Labs: CBC, BMP 04/19/17 11:35 04/19/17 06:15
[2017-04-19 22:16] LABS: ARTERIAL BLD GAS O2 SATURATION 99.2 % (90-98.9); ARTERIAL BLOOD GAS BASE EXCESS 1.9 meq/l (-2-2); ARTERIAL BLOOD GAS HCO3 25.1 meq/L (22-26); ARTERIAL BLOOD GAS pH 7.46 (7.35-7.45)
[2017-04-19 22:17] LABS: ALLENS TEST POSITIVE; ART PUNCT SITE RIGHT RADIAL; LPM/O2% 2L; PT. ON O2? YES; TYPE OF O2 NASAL
--- NOTE | 2017-04-19 22:48 | PN ---
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 She was started on rocephin and switched to levaquin wwhen she signed out there. Signed out there and comes here for chest/back pain, cough, phlegm No fevers/chills/abdominal pain/ Today patient with LT. leg and back pain. H/o disk disease. Reports that pain seem to be both due to disk and crisis. Noted to be wheezing, mildly short of breath, hypoxic to 94% on R/A PMH Hemoglobin SC disease h/o acute chest syndeome PCOS infertility AFVSS Cor: RSR, No murmurs, No gallops Lungs: wheezes Abd: Soft, Normal bowel sounds, No organomegaly Ext:No significant edema Abnormal Lab Results 04/19/17 04/19/17 04/19/17 06:15 11:35 15:59 WBC 34.0 H* D 33.9 H* MCV 78.3 L 77.5 L RDW 20.9 H 20.4 H Neutrophils % 88.0 H D 88.7 H Lymphocytes % 7.0 L D 6.6 L ABG pH ABG pO2 at Pt Temp ABG O2 Sat (Measured) Carbon Dioxide Anion Gap Random Glucose AST LD Total 282 H 04/19/17 04/20/17 04/20/17 22:05 06:20 06:20 WBC 32.3 H* MCV 78.5 L RDW 20.0 H Neutrophils % Lymphocytes % ABG pH 7.46 H ABG pO2 at Pt Temp 117.0 H D ABG O2 Sat (Measured) 99.2 H Carbon Dioxide 33 H D Anion Gap 6 L Random Glucose 194 H D AST 13 L LD Total Active Medications Generic Name Dose Route Start Last Admin Trade Name Freq PRN Reason Stop Dose Admin Albuterol/Ipratropium 1 amp 04/17/17 11:44 Duoneb - NEB Q6H PRN SHORTNESS OF BREATH Albuterol/Ipratropium 1 amp 04/19/17 22:00 04/20/17 05:28 Duoneb - NEB 1 amp Q4HPO NILSON Administration Amlodipine Besylate 5 mg 04/16/17 10:00 04/19/17 09:18 Norvasc - PO 5 mg DAILY NILSON Administration Clonazepam 1 mg 04/16/17 08:19 04/19/17 09:18 Klonopin - PO 1 mg BID PRN Administration ANXIETY Docusate Sodium 100 mg 04/16/17 10:00 04/19/17 21:49 Colace - PO 100 mg BID NILSON Administration Fluticasone Propionate 2 spray 04/17/17 14:30 04/19/17 09:21 Flonase - NS 2 spray DAILY NILSON Administration Folic Acid 1 mg 04/16/17 10:00 04/19/17 09:18 Folic Acid - PO 1 mg DAILY NILSON Administration Guaifenesin 10 ml 04/18/17 13:32 04/18/17 21:49 Robitussin - PO 10 ml Q4H PRN Administration COUGH Hydromorphone HCl 1.5 mg 04/19/17 21:12 04/19/17 21:49 Dilaudid Injection - IVPB 1.5 mg Q3H PRN Administration PAIN Azithromycin 250 mls @ 250 mls/hr 04/17/17 11:30 04/19/17 09:19 Zithromax 500mg Ivpb (Pre-Docked) IVPB 250 mls/hr DAILY NILSON Administration Ceftriaxone Sodium 50 mls @ 100 mls/hr 04/17/17 11:30 04/19/17 09:18 Rocephin 1gm Ivpb (Pre-Docked) IVPB 100 mls/hr DAILY NILSON Administration Sodium Chloride 1,000 mls @ 75 mls/hr 04/19/17 21:15 04/19/17 21:48 Normal Saline - IV 75 mls/hr ASDIR NILSON Administration Insulin Aspart 1 vial 04/19/17 22:05 04/20/17 06:09 Novolog Vial Sliding Scale - SQ 5 units Q4HPO NILSON Administration Protocol Ranitidine HCl 150 mg 04/16/17 10:30 04/19/17 21:49 Zantac - PO 150 mg BID NILSON Administration Sertraline HCl 25 mg 04/16/17 10:00 04/19/17 09:18 Zoloft - PO 25 mg DAILY NILSON Administration Trazodone HCl 50 mg 04/16/17 22:00 04/19/17 21:53 Desyrel - PO 50 mg HS NILSON Administration Valproate Sodium 500 mg 04/19/17 22:00 04/19/17 21:54 Depacon Injection - IVPB 500 mg BID NILSON Administration A/P 41 y/o female Hgb SC disease, comes in with back, chest pain. Comes in with bronchitis Was being treated for mild pain crisis Now with wheezing, mild hypoxia, pain in lower back , lt. leg (crisis vs disk disease) 94% r/a No e/o hemolytic hilary but need to monitor closely for worsening vasocclusive crisis Oxygen to keep sats > 96% Bronchodilators Pain control Gentle hydration Check CXR Discussed with hospitalist
[2017-04-20] MEDS ORDERED: INSULIN (NOVOLOG) ASPART 100 UNITS/ML 10ML VIAL ONE ×5 (01:29→17:35)
[2017-04-20] MEDS: INSULIN SLIDING SCALE (NOVOLOG) 1 VIAL SQ SCH ×6 (01:31→21:32)
[2017-04-20] MEDS: ALBUTEROL SO4 2.5/IPRATROPIUM 0.5 INH SOL 3 ML VIAL.NEB. NEB SCH ×6 (02:00→21:40)
[2017-04-20 07:05] LABS: MCH 27.4 pg (25.7-33.7); MCHC 34.8 g/dl (32.0-36.0); MEAN CELL VOLUME 78.5 fl (80-96); MEAN PLT VOLUME 10.1 fl (7.5-11.1); PLATELET COUNT 237 K/MM3 (134-434)
[2017-04-20 07:29] LABS: ALBUMIN 3.4 g/dl (3.4-5.0); ANION GAP 6 (8-16); CALCIUM 8.5 mg/dL (8.5-10.1); CO2 33 mmol/L (21-32); GLUCOSE,RANDOM 194 mg/dL (74-106); MAGNESIUM 2.2 mg/dL (1.8-2.4); WHITE BLOOD COUNT 32.3 K/mm3 (4.0-10.0)
[2017-04-20 07:32] LABS: ALK PHOS 105 U/L (45-117); BILIRUBIN,TOTAL 0.8 mg/dL (0.2-1.0); CREATININE 0.7 mg/dL (0.55-1.02); LDH 212 U/L (84-246); SGOT/AST 13 U/L (15-37); SGPT/ALT 29 U/L (12-78); TOT PROT 6.7 g/dl (6.4-8.2)
--- NOTE | 2017-04-20 08:49 | PN ---
Teaching Attending Note Name of Resident: Humberto Quintero ATTENDING PHYSICIAN STATEMENT I saw and evaluated the patient. I reviewed the resident's note and discussed the case with the resident. I agree with the resident's findings and plan as documented. SUBJECTIVE: Patient states that her headache is better today, c/o low back pain that she was told that she has herniated disc. OBJECTIVE: Vital Signs Temperature 97.6 F 04/20/17 05:51 Pulse Rate 88 04/20/17 05:51 Respiratory Rate 20 04/20/17 05:51 Blood Pressure 128/79 04/20/17 05:51 O2 Sat by Pulse Oximetry (%) 97 04/19/17 21:00 CBCD WBC 32.3 K/mm3 (4.0-10.0) H* 04/20/17 06:20 RBC 4.16 M/mm3 (3.60-5.2) 04/20/17 06:20 Hgb 11.4 GM/dL (10.7-15.3) 04/20/17 06:20 Hct 32.7 % (32.4-45.2) 04/20/17 06:20 MCV 78.5 fl (80-96) L 04/20/17 06:20 MCHC 34.8 g/dl (32.0-36.0) 04/20/17 06:20 RDW 20.0 % (11.6-15.6) H 04/20/17 06:20 Plt Count 237 K/MM3 (134-434) 04/20/17 06:20 MPV 10.1 fl (7.5-11.1) 04/20/17 06:20 CMP Sodium 141 mmol/L (136-145) 04/20/17 06:20 Potassium 4.0 mmol/L (3.5-5.1) 04/20/17 06:20 Chloride 102 mmol/L (98-107) 04/20/17 06:20 Carbon Dioxide 33 mmol/L (21-32) H D 04/20/17 06:20 Anion Gap 6 (8-16) L 04/20/17 06:20 BUN 11 mg/dL (7-18) 04/20/17 06:20 Creatinine 0.7 mg/dL (0.55-1.02) 04/20/17 06:20 Creat Clearance w eGFR > 60 (>60) 04/20/17 06:20 Random Glucose 194 mg/dL (74-106) H D 04/20/17 06:20 Calcium 8.5 mg/dL (8.5-10.1) 04/20/17 06:20 Total Bilirubin 0.8 mg/dL (0.2-1.0) D 04/20/17 06:20 AST 13 U/L (15-37) L 04/20/17 06:20 ALT 29 U/L (12-78) 04/20/17 06:20 Alkaline Phosphatase 105 U/L (45-117) 04/20/17 06:20 Total Protein 6.7 g/dl (6.4-8.2) 04/20/17 06:20 Albumin 3.4 g/dl (3.4-5.0) 04/20/17 06:20 CARDIAC ENZYMES Creatine Kinase 52 IU/L (26-192) 04/16/17 01:03 Troponin I < 0.02 ng/ml (0.00-0.05) 04/17/17 06:30 Current Medications Generic Name Dose Route Start Last Admin Trade Name Freq PRN Reason Stop Dose Admin Albuterol/Ipratropium 1 amp 04/17/17 11:44 Duoneb - NEB Q6H PRN SHORTNESS OF BREATH Albuterol/Ipratropium 1 amp 04/19/17 22:00 04/20/17 05:28 Duoneb - NEB 1 amp Q4HPO NILSON Administration Amlodipine Besylate 5 mg 04/16/17 10:00 04/19/17 09:18 Norvasc - PO 5 mg DAILY NILSON Administration Clonazepam 1 mg 04/16/17 08:19 04/19/17 09:18 Klonopin - PO 1 mg BID PRN Administration ANXIETY Docusate Sodium 100 mg 04/16/17 10:00 04/19/17 21:49 Colace - PO 100 mg BID NILSON Administration Fluticasone Propionate 2 spray 04/17/17 14:30 04/19/17 09:21 Flonase - NS 2 spray DAILY NILSON Administration Folic Acid 1 mg 04/16/17 10:00 04/19/17 09:18 Folic Acid - PO 1 mg DAILY NILSON Administration Guaifenesin 10 ml 04/18/17 13:32 04/18/17 21:49 Robitussin - PO 10 ml Q4H PRN Administration COUGH Hydromorphone HCl 1.5 mg 04/19/17 21:12 04/19/17 21:49 Dilaudid Injection - IVPB 1.5 mg Q3H PRN Administration PAIN Azithromycin 250 mls @ 250 mls/hr 04/17/17 11:30 04/19/17 09:19 Zithromax 500mg Ivpb (Pre-Docked) IVPB 250 mls/hr DAILY NILSON Administration Ceftriaxone Sodium 50 mls @ 100 mls/hr 04/17/17 11:30 04/19/17 09:18 Rocephin 1gm Ivpb (Pre-Docked) IVPB 100 mls/hr DAILY NILSON Administration Sodium Chloride 1,000 mls @ 75 mls/hr 04/19/17 21:15 04/19/17 21:48 Normal Saline - IV 75 mls/hr ASDIR NILSON Administration Insulin Aspart 1 vial 04/19/17 22:05 04/20/17 06:09 Novolog Vial Sliding Scale - SQ 5 units Q4HPO NILSON Administration Protocol Ranitidine HCl 150 mg 04/16/17 10:30 04/19/17 21:49 Zantac - PO 150 mg BID NILSON Administration Sertraline HCl 25 mg 04/16/17 10:00 04/19/17 09:18 Zoloft - PO 25 mg DAILY NILSON Administration Trazodone HCl 50 mg 04/16/17 22:00 04/19/17 21:53 Desyrel - PO 50 mg HS NILSON Administration Valproate Sodium 500 mg 04/19/17 22:00 04/19/17 21:54 Depacon Injection - IVPB 500 mg BID NILSON Administration Home Medications Medication Instructions Recorded Docusate Sodium [Colace -] 100 mg PO BID 01/01/17 Folic Acid 1 mg PO DAILY 01/01/17 Oxycodone HCl 10 mg PO QID 01/01/17 Amoxicillin/Potassium Clav 1 each PO BID #14 tablet 01/02/17 [Augmentin 875-125 Tablet] Ibuprofen [Motrin -] 600 mg PO QID PRN #30 tablet 01/02/17 Amlodipine Besylate [Norvasc -] 5 mg PO DAILY 04/16/17 Clonazepam [Klonopin -] 2 mg PO BID PRN 04/16/17 Famotidine [Heartburn Prevention] 20 mg PO BID 04/16/17 Metformin HCl [Metformin HCl ER] 500 mg PO ACBK 04/16/17 Sertraline HCl [Zoloft] 25 mg PO DAILY 04/16/17 Tramadol HCl 50 mg PO DAILY PRN 04/16/17 Trazodone HCl 50 mg PO HS 04/16/17 Laboratory Tests 12/03/16 12/04/16 12/04/16 12:40 05:00 13:40 WBC 31.4 H* 30.8 H* 34.9 H* LD Total C-Reactive Protein TSH Free T4 Free T3 12/04/16 12/05/16 12/05/16 17:45 05:20 14:15 WBC 34.4 H* 34.2 H* 25.9 H LD Total C-Reactive Protein TSH Free T4 Free T3 12/05/16 12/06/16 12/06/16 21:30 05:20 13:52 WBC 26.3 H 23.7 H 31.8 H* D LD Total C-Reactive Protein TSH Free T4 Free T3 12/07/16 12/08/16 12/09/16 05:05 05:20 05:05 WBC 22.2 H D 21.7 H 18.4 H LD Total C-Reactive Protein TSH Free T4 Free T3 04/17/17 04/17/17 04/17/17 06:30 06:30 06:30 WBC LD Total 264 H D C-Reactive Protein 1.0 H D TSH 1.46 D Free T4 1.31 D Free T3 3.1 04/19/17 04/20/17 15:59 06:20 WBC LD Total 282 H 212 D C-Reactive Protein TSH Free T4 Free T3 CHEST: positive for wheezing but less , GAE otherwise. ASSESSMENT AND PLAN: This 41 yr old female with c/o general body pains, chest pain with hx of sickle cell. # # Acute generalized pain/Fibromylagic Pain/Headache and low back pain ;as per patient had an MRI in the past and diagnosed of Herniated disc , will get xray of her LS spine and thoracic spine . Ordered Lyme titer is still pending. , TSH/ FT4 levels are normal ,levels as above. continue IVf. Follow Xray of Lspine and Tspine # Acute Bronchitis with exacerbation of Asthma continue IV antibiotic will stop IV steroid due to elevated blood sugar and Patient went into sickle cell crisis in the past, last admission as per ,discussed with and stopped the steroid since she is doing better in terms of her asthma. continue nebulizer tx, IV rocephin 1gm daily /Zithromax 500mg IV x 3/3 will stop Motrin for now since has asthma which can make her asthma worse. Pulmonary consult appreciated . negative Influenza. # Chest pain improved will continue her pain meds. morphine/oxycodone prn # Sickle Cell disease with mild crisis overnight but improving now , continue her folic acid, appreciate Hem consult # acute leukocytosis due to steroids ;incentive spirometer, IV antibiotic Rocepin and completed Zithromax # T2DM on q4h insulin with coverage since sugar was elevated due to her use of steroids , will hold Metformin for now DVT Px: Lovenox sq, will hold it for now since having some mild nose bleed ; early ambulation. SCDs while in bed Steroids were stopped since blood sugar is getting elevated also discussed with that steroids can make her go into sickle cell crisis. Patient c/o having lower extremity pain. discussed with will see the patient and ordered LDL level.
[2017-04-20] MEDS ORDERED: PT OWN MED DRAWER 7, Y5N ONE ×2 (10:29→21:24)
[2017-04-20] MEDS: FLUTICASONE PROP 0.05% 16 GM NASAL SPRAY NS SCH (10:41)
[2017-04-20] MEDS: FOLIC ACID 1 MG TABLET (FP) PO SCH (10:41)
[2017-04-20] MEDS: VALPROATE SODIUM 500 MG/5 ML VIAL IVPB SCH ×2 (10:41→21:32)
[2017-04-20] MEDS: amLODIPine BESYLATE 5 MG TABLET (FP) PO SCH (10:41)
[2017-04-20] MEDS: DOCUSATE SODIUM 100 MG CAPSULE (FP) PO SCH ×2 (10:41→21:32)
[2017-04-20] MEDS: SERTRALINE HCL 25 MG TABLET (FP) PO SCH (10:41)
[2017-04-20 11:01] LABS: PLATELET ESTIMATE ADEQUATE (NORMAL)
[2017-04-20] MEDS: HYDROmorphone HCL CARPU-JECT 2 MG/1 ML DISP.SYRIN IVPB PRN ×2 (11:10→18:21)
[2017-04-20] MEDS: SODIUM CHLORIDE 1,000 ML IV SCH ×2 (11:54→23:44)
[2017-04-20] MEDS: CEFTRIAXONE 50 ML IVPB SCH (11:55)
[2017-04-20] MEDS: AZITHROMYCIN IVPB 250 ML IVPB SCH (11:55)
--- NOTE | 2017-04-20 12:31 | CON.CARD ---
Consult Consult Specialty:: Cardiology Referred by:: Hospitalist Reason for Consultation:: Cardiac evaluation - History of Present Illness Chief Complaint: Chest pain, productive cough, arm and leg pain History of Present Illness: Patient is a 41 year old female of descent with underlying history of sickle cell disease (Hemoglobin SC disease), history of DVT s/p embolectomy, HTN and PCOS who presented to [facility] with generalized body pain, fever and chest pain, but she signed out AMA. She now complains of both upper and lower extermity pain along with chest pain, fever and productive cough with yellowish sputum. She denies paroxysmal nocturnal dyspnea or orthopnea. She complained of headache and Neurology input is noted. She is being treated for migraine. She remains afebrile at this time. She has pulmonary nodule which may need further evaluation and follow up. She is here for continual treatment of sickle cell crisis. 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[employer]: Yes: Migraine Cardio/Vascular: Yes: Deep Vein Thrombosis, HTN ...LMP: 03/31/17 - Past Surgical History Past Surgical History: Yes: Cataract Removal, Cholecystectomy - Alcohol/Substance Use Hx Alcohol Use: No History of Substance Use: reports: None - Smoking History Smoking history: Former smoker Have you smoked in the past 12 months: No Aproximately how many cigarettes per day: 3 If you are a former smoker, when did you quit?: 5 MONTHS AGO Home Medications - Allergies Allergies/Adverse Reactions: Allergies Allergy/AdvReac Type Severity Reaction Status Date / Time No Known Allergies Allergy Verified 01/01/17 15:08 - Home Medications Home Medications: Ambulatory Orders Docusate Sodium [Colace -] 100 mg PO BID 01/01/17 Folic Acid 1 mg PO DAILY 01/01/17 Oxycodone HCl 10 mg PO QID 01/01/17 Amoxicillin/Potassium Clav [Augmentin 875-125 Tablet] 1 each PO BID #14 tablet 01/02/17 Ibuprofen [Motrin -] 600 mg PO QID PRN #30 tablet 01/02/17 Amlodipine Besylate [Norvasc -] 5 mg PO DAILY 04/16/17 Clonazepam [Klonopin -] 2 mg PO BID PRN 04/16/17 Famotidine [Heartburn Prevention] 20 mg PO BID 04/16/17 Metformin HCl [Metformin HCl ER] 500 mg PO ACBK 04/16/17 Sertraline HCl [Zoloft] 25 mg PO DAILY 04/16/17 Tramadol HCl 50 mg PO DAILY PRN 04/16/17 Trazodone HCl 50 mg PO HS 04/16/17 Review of Systems - Review of Systems Constitutional: reports: Fever. denies: Chills Cardiovascular: reports: Chest Pain, Shortness of Breath. denies: Palpitations Respiratory: reports: Cough, SOB. denies: Hemoptysis, Orthopnea, PND Gastrointestinal: denies: Abdominal Pain, Constipation, Diarrhea, Melena, Nausea , Rectal Bleeding, Vomiting Genitourinary: denies: Dysuria Musculoskeletal: reports: Back Pain, Extremity Pain, Joint Pain Neurological: reports: Headache, Weakness. denies: Dizziness, Numbness, Seizure , Syncope Vital Signs: Vital Signs Temperature 97.6 F 04/20/17 05:51 Pulse Rate 88 04/20/17 05:51 Respiratory Rate 20 04/20/17 05:51 Blood Pressure 128/79 04/20/17 05:51 O2 Sat by Pulse Oximetry (%) 97 04/19/17 21:00 Neck: Yes: Supple Respiratory: Yes: Rhonchi Gastrointestinal: Yes: Normal Bowel Sounds, Soft. No: Tenderness Cardiovascular: Yes: Regular Rate and Rhythm JVD: No Carotid Bruit: No PMI: Non-Displaced Heart Sounds: Yes: S1, S2. No: Gallop Edema: No - Other Data Labs, Other Data: CBC, BMP 04/20/17 06:20 04/20/17 06:20 INR, PTT INR 1.15 (0.82-1.09) H 04/16/17 01:03 Laboratory Results - last 24 hr 04/19/17 04/19/17 04/19/17 15:02 15:59 22:00 WBC RBC Hgb Hct MCV MCHC RDW Plt Count MPV Neutrophils % Lymphocytes % Monocytes % Nucleated RBCs Differential Comment Platelet Estimate Retic Count Puncture Site ABG pH ABG pCO2 at Pt Temp ABG pO2 at Pt Temp ABG HCO3 ABG O2 Sat (Measured) ABG O2 Content ABG Base Excess Serafin Test O2 Delivery Device Oxygen Flow Rate PEEP Sodium Potassium Chloride Carbon Dioxide Anion Gap BUN Creatinine Creat Clearance w eGFR POC Glucometer 483 511 Random Glucose Calcium Magnesium Total Bilirubin AST ALT Alkaline Phosphatase LD Total 282 H Total Protein Albumin 04/19/17 04/20/17 04/20/17 22:05 01:27 05:58 WBC RBC Hgb Hct MCV MCHC RDW Plt Count MPV Neutrophils % Lymphocytes % Monocytes % Nucleated RBCs Differential Comment Platelet Estimate Retic Count Puncture Site Right radial ABG pH 7.46 H ABG pCO2 at Pt Temp 35.8 D ABG pO2 at Pt Temp 117.0 H D ABG HCO3 25.1 ABG O2 Sat (Measured) 99.2 H ABG O2 Content 15.6 ABG Base Excess 1.9 Serafin Test Positive O2 Delivery Device Nasal Oxygen Flow Rate 2l PEEP 0.0 Sodium Potassium Chloride Carbon Dioxide Anion Gap BUN Creatinine Creat Clearance w eGFR POC Glucometer 347 223 Random Glucose Calcium Magnesium Total Bilirubin AST ALT Alkaline Phosphatase LD Total Total Protein Albumin 04/20/17 04/20/17 04/20/17 06:20 06:20 06:20 WBC 32.3 H* RBC 4.16 Hgb 11.4 Hct 32.7 MCV 78.5 L MCHC 34.8 RDW 20.0 H Plt Count 237 MPV 10.1 Neutrophils % 61.0 D Lymphocytes % 30.0 D Monocytes % 9.0 D Nucleated RBCs 1 H Differential Comment Manual diff done Platelet Estimate Adequate Retic Count 5.83 H D Puncture Site ABG pH ABG pCO2 at Pt Temp ABG pO2 at Pt Temp ABG HCO3 ABG O2 Sat (Measured) ABG O2 Content ABG Base Excess Serafin Test O2 Delivery Device Oxygen Flow Rate PEEP Sodium 141 Potassium 4.0 Chloride 102 Carbon Dioxide 33 H D Anion Gap 6 L BUN 11 Creatinine 0.7 Creat Clearance w eGFR > 60 POC Glucometer Random Glucose 194 H D Calcium 8.5 Magnesium 2.2 Total Bilirubin 0.8 D AST 13 L ALT 29 Alkaline Phosphatase 105 LD Total 212 D Total Protein 6.7 Albumin 3.4 Normal sinus rhythm with left axis deviation Assessment/Plan 1. Hemoglobin SC disease (sickle cell disease) causing acute chest syndrome and joint/extremity pains 2. URI/bronchitis 3. HTN 4. History of DVT 5. Migraine PLAN: 1. analgesics as needed 2. Continue Amlodipine 3. Antibiotic coverage and bronchodilator 4. Treatment for migraine 5. Prior echocardiograpy reviewed Further plans are to follow Song Austin MD
--- NOTE | 2017-04-20 13:04 | PN ---
Progress Note (short form) - Note Progress Note: NEUROLOGY HPI : long history of headaches,which she gets quite frequently, often for days on end, with nausea and dizziness, no phonophobia, questionable photophobia, followed at [facility], previously by Dr. Lui in [place]. She has headaches for about 10 years. The headaches are severe and holocephalgic. She has tried multiple acute and prophylactic agents without benefit she says, including Depakote, amitritpyline, Topamax, and naproxen. She has never used Botox. She says that she has had a stroke in the past but is vague about the details and contradicts this when telling me that Dr. Lui had obtained imaging of her head that was normal, although her back showed a herniated disc. She also complains of vertigo. 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 Cardio/Vascular: Yes: Deep Vein Thrombosis, HTN ...LMP: 03/31/17 ...: No - Past Surgical History Past Surgical History: Yes: Cataract Removal, Cholecystectomy - Alcohol/Substance Use Hx Alcohol Use: No History of Substance Use: reports: None - Smoking History Smoking history: Former smoker Have you smoked in the past 12 months: No Aproximately how many cigarettes per day: 3 If you are a former smoker, when did you quit?: 5 MONTHS AGO Home Medications - Allergies Allergies/Adverse Reactions: Allergies Allergy/AdvReac Type Severity Reaction Status Date / Time No Known Allergies Allergy Verified 01/01/17 15:08 - Home Medications Home Medications: Ambulatory Orders Docusate Sodium [Colace -] 100 mg PO BID 01/01/17 Folic Acid 1 mg PO DAILY 01/01/17 Oxycodone HCl 10 mg PO QID 01/01/17 Amoxicillin/Potassium Clav [Augmentin 875-125 Tablet] 1 each PO BID #14 tablet 01/02/17 Ibuprofen [Motrin -] 600 mg PO QID PRN #30 tablet 01/02/17 Amlodipine Besylate [Norvasc -] 5 mg PO DAILY 04/16/17 Clonazepam [Klonopin -] 2 mg PO BID PRN 04/16/17 Famotidine [Heartburn Prevention] 20 mg PO BID 04/16/17 Metformin HCl [Metformin HCl ER] 500 mg PO ACBK 04/16/17 Sertraline HCl [Zoloft] 25 mg PO DAILY 04/16/17 Tramadol HCl 50 mg PO DAILY PRN 04/16/17 Trazodone HCl 50 mg PO HS 04/16/17 Physical Exam-Neuro Vital Signs: Vital Signs Period Temp Pulse Resp BP Sys/Tompkins Pulse Ox Last 24 Hr 97.1 F-98.1 F 88-104 20-20 128-142/79-84 97 Labs: CBCD WBC 32.3 K/mm3 (4.0-10.0) H* 04/20/17 06:20 RBC 4.16 M/mm3 (3.60-5.2) 04/20/17 06:20 Hgb 11.4 GM/dL (10.7-15.3) 04/20/17 06:20 Hct 32.7 % (32.4-45.2) 04/20/17 06:20 MCV 78.5 fl (80-96) L 04/20/17 06:20 MCHC 34.8 g/dl (32.0-36.0) 04/20/17 06:20 RDW 20.0 % (11.6-15.6) H 04/20/17 06:20 Plt Count 237 K/MM3 (134-434) 04/20/17 06:20 MPV 10.1 fl (7.5-11.1) 04/20/17 06:20 CMP Sodium 141 mmol/L (136-145) 04/20/17 06:20 Potassium 4.0 mmol/L (3.5-5.1) 04/20/17 06:20 Chloride 102 mmol/L (98-107) 04/20/17 06:20 Carbon Dioxide 33 mmol/L (21-32) H D 04/20/17 06:20 Anion Gap 6 (8-16) L 04/20/17 06:20 BUN 11 mg/dL (7-18) 04/20/17 06:20 Creatinine 0.7 mg/dL (0.55-1.02) 04/20/17 06:20 Creat Clearance w eGFR > 60 (>60) 04/20/17 06:20 Calcium 8.5 mg/dL (8.5-10.1) 04/20/17 06:20 Total Bilirubin 0.8 mg/dL (0.2-1.0) D 04/20/17 06:20 AST 13 U/L (15-37) L 04/20/17 06:20 ALT 29 U/L (12-78) 04/20/17 06:20 Alkaline Phosphatase 105 U/L (45-117) 04/20/17 06:20 Total Protein 6.7 g/dl (6.4-8.2) 04/20/17 06:20 Albumin 3.4 g/dl (3.4-5.0) 04/20/17 06:20 - Neuro Exam Cranial Nerves II-XII Intact: Yes DTR's: 2+ Left Bicep, 2+ Right Bicep, 2+ Left Tricep, 2+ Right Tricep, 2+ Left Brachioradialis, 2+ Right Brachioradialis, 2+ Left Achilles, 2+ Right Achilles Babinski: Absent Response to light touch: Normal Motor Strength: 5/5: Left Arm, Right Arm, Left Leg, Right Leg Gait: Deferred NIH Stroke Scale - Total Score NIH Stroke Scale Score: 0 Problem List - Problems (1) Chronic migraine without aura, with status migrainosus Assessment/Plan: cont Depacon 500 mg IV BID x 3 days , can add on TORADOL PRN if no hematologic contraindication limit opioids if given for GARCIAS possible may need DHE (dihydroergotamine but would avoid if she is in crisis-- given vasoconstriction associated with RX) can consider outpt BOTOX Code(s): G43.701 - CHRONIC MIGRAINE W/O AURA, NOT INTRACTABLE, W STAT MIGR 2) Sickel C ell disease, fibromylagia HEM FU , elevated WBC (steroid effect?) on dilaudid she did not c/o of low back pain today, but if continues can get MRI LS spine 3) PNA/bronchitis ABX, steroids being tapered Dr Wayne [phone]
[2017-04-20] MEDS: RANITIDINE HCL 150 MG TABLET (FP) PO SCH ×2 (14:05→21:32)
--- NOTE | 2017-04-20 16:19 | PN ---
Physical Exam: SUBJECTIVE: Patient seen and examined at bedside. No overnight events. Continues to have bilateral leg pain. Anxious about her condition worried about pain crisis. Denies CP, GARCIAS, abd.pain, palpitations. OBJECTIVE: Vital Signs Period Temp Pulse Resp BP Sys/Tompkins Pulse Ox Last 24 Hr 97.1 F-98.1 F 77-98 20-20 128-136/79-90 97-97 GENERAL: AAOx3, mild distress HEAD: NC/AT. EYES: PERRL, EOMI, sclera anicteric, conjunctiva clear. No ptosis. ENT: moist mucous membranes. NECK:supple , No JVD LUNGS: bilateral scattered rhonchi HEART:RRR, S1, S2 no m/g/r ABDOMEN: Soft, NT, ND, BS(+) EXTREMITIES: 2+ pulses, warm, well-perfused, no edema. NEUROLOGICAL: Cranial nerves II through XII grossly intact. Normal speech, gait not observed. PSYCH: depressed SKIN: Warm, dry, normal turgor, no rashes or lesions noted Laboratory Results - last 24 hr 04/19/17 04/19/17 04/19/17 15:02 15:59 22:00 WBC RBC Hgb Hct MCV MCHC RDW Plt Count MPV Neutrophils % Lymphocytes % Monocytes % Nucleated RBCs Differential Comment Platelet Estimate Retic Count Puncture Site ABG pH ABG pCO2 at Pt Temp ABG pO2 at Pt Temp ABG HCO3 ABG O2 Sat (Measured) ABG O2 Content ABG Base Excess Serafin Test O2 Delivery Device Oxygen Flow Rate PEEP Sodium Potassium Chloride Carbon Dioxide Anion Gap BUN Creatinine Creat Clearance w eGFR POC Glucometer 483 511 Random Glucose Calcium Magnesium Total Bilirubin AST ALT Alkaline Phosphatase LD Total 282 H Total Protein Albumin 04/19/17 04/20/17 04/20/17 22:05 01:27 05:58 WBC RBC Hgb Hct MCV MCHC RDW Plt Count MPV Neutrophils % Lymphocytes % Monocytes % Nucleated RBCs Differential Comment Platelet Estimate Retic Count Puncture Site Right radial ABG pH 7.46 H ABG pCO2 at Pt Temp 35.8 D ABG pO2 at Pt Temp 117.0 H D ABG HCO3 25.1 ABG O2 Sat (Measured) 99.2 H ABG O2 Content 15.6 ABG Base Excess 1.9 Serafin Test Positive O2 Delivery Device Nasal Oxygen Flow Rate 2l PEEP 0.0 Sodium Potassium Chloride Carbon Dioxide Anion Gap BUN Creatinine Creat Clearance w eGFR POC Glucometer 347 223 Random Glucose Calcium Magnesium Total Bilirubin AST ALT Alkaline Phosphatase LD Total Total Protein Albumin 04/20/17 04/20/17 04/20/17 06:20 06:20 06:20 WBC 32.3 H* RBC 4.16 Hgb 11.4 Hct 32.7 MCV 78.5 L MCHC 34.8 RDW 20.0 H Plt Count 237 MPV 10.1 Neutrophils % 61.0 D Lymphocytes % 30.0 D Monocytes % 9.0 D Nucleated RBCs 1 H Differential Comment Manual diff done Platelet Estimate Adequate Retic Count 5.83 H D Puncture Site ABG pH ABG pCO2 at Pt Temp ABG pO2 at Pt Temp ABG HCO3 ABG O2 Sat (Measured) ABG O2 Content ABG Base Excess Serafin Test O2 Delivery Device Oxygen Flow Rate PEEP Sodium 141 Potassium 4.0 Chloride 102 Carbon Dioxide 33 H D Anion Gap 6 L BUN 11 Creatinine 0.7 Creat Clearance w eGFR > 60 POC Glucometer Random Glucose 194 H D Calcium 8.5 Magnesium 2.2 Total Bilirubin 0.8 D AST 13 L ALT 29 Alkaline Phosphatase 105 LD Total 212 D Total Protein 6.7 Albumin 3.4 04/20/17 04/20/17 10:50 15:17 WBC RBC Hgb Hct MCV MCHC RDW Plt Count MPV Neutrophils % Lymphocytes % Monocytes % Nucleated RBCs Differential Comment Platelet Estimate Retic Count Puncture Site ABG pH ABG pCO2 at Pt Temp ABG pO2 at Pt Temp ABG HCO3 ABG O2 Sat (Measured) ABG O2 Content ABG Base Excess Serafin Test O2 Delivery Device Oxygen Flow Rate PEEP Sodium Potassium Chloride Carbon Dioxide Anion Gap BUN Creatinine Creat Clearance w eGFR POC Glucometer 245 208 Random Glucose Calcium Magnesium Total Bilirubin AST ALT Alkaline Phosphatase LD Total Total Protein Albumin Active Medications Generic Name Dose Route Start Last Admin Trade Name Freq PRN Reason Stop Dose Admin Albuterol/Ipratropium 1 amp 04/17/17 11:44 Duoneb - NEB Q6H PRN SHORTNESS OF BREATH Albuterol/Ipratropium 1 amp 04/19/17 22:00 04/20/17 14:00 Duoneb - NEB Not Given Q4HPO NILSON Amlodipine Besylate 5 mg 04/16/17 10:00 04/20/17 10:41 Norvasc - PO 5 mg DAILY NILSON Administration Clonazepam 1 mg 04/16/17 08:19 04/19/17 09:18 Klonopin - PO 1 mg BID PRN Administration ANXIETY Docusate Sodium 100 mg 04/16/17 10:00 04/20/17 10:41 Colace - PO 100 mg BID NILSON Administration Fluticasone Propionate 2 spray 04/17/17 14:30 04/20/17 10:41 Flonase - NS 2 spray DAILY NILSON Administration Folic Acid 1 mg 04/16/17 10:00 04/20/17 10:41 Folic Acid - PO 1 mg DAILY NILSON Administration Guaifenesin 10 ml 04/18/17 13:32 04/18/17 21:49 Robitussin - PO 10 ml Q4H PRN Administration COUGH Hydromorphone HCl 1.5 mg 04/19/17 21:12 04/20/17 11:10 Dilaudid Injection - IVPB 1.5 mg Q3H PRN Administration PAIN Azithromycin 250 mls @ 250 mls/hr 04/17/17 11:30 04/20/17 11:55 Zithromax 500mg Ivpb (Pre-Docked) IVPB 250 mls/hr DAILY NILSON Administration Ceftriaxone Sodium 50 mls @ 100 mls/hr 04/17/17 11:30 04/20/17 11:55 Rocephin 1gm Ivpb (Pre-Docked) IVPB 100 mls/hr DAILY NILSON Administration Sodium Chloride 1,000 mls @ 75 mls/hr 04/19/17 21:15 04/20/17 11:54 Normal Saline - IV 75 mls/hr ASDIR NILSON Administration Insulin Aspart 1 vial 04/19/17 22:05 04/20/17 15:18 Novolog Vial Sliding Scale - SQ 5 units Q4HPO NILSON Administration Protocol Ranitidine HCl 150 mg 04/16/17 10:30 04/20/17 14:05 Zantac - PO 150 mg BID NILSON Administration Sertraline HCl 25 mg 04/16/17 10:00 04/20/17 10:41 Zoloft - PO 25 mg DAILY NILSON Administration Trazodone HCl 50 mg 04/16/17 22:00 04/19/17 21:53 Desyrel - PO 50 mg HS NILSON Administration Valproate Sodium 500 mg 04/19/17 22:00 04/20/17 10:41 Depacon Injection - IVPB 500 mg BID NILSON Administration ASSESSMENT/PLAN: 41 year old female who has a significant hx of sickle cell anemia admitted for generalized body pains and acute bronchitis. Problem List - Problems (1) Bronchitis Assessment/Plan: * Continue with IV Ceftriaxone * discontinue Azithromycin (completed 3 day course) * Duonebs PRN * fluticasone prop 0.05% 2 sprays daily * Supplemental O2 PRN to maintain SpO2 > 90% * Steroids stopped as they may exacerbate crisis. * Pulmonary consult appreciated. (2) Chronic migraine without aura, with status migrainosus Assessment/Plan: * Consulted Neuro who recommends * started on 500mg IV BID for 3 days. * will consider adding toradol. * patients symptoms have improved. (3) HTN (hypertension) Assessment/Plan: * Will continue Amlodipine 5mg PO daily * Cardio consult appreciated. (4) Vasoocclusive sickle cell crisis Assessment/Plan: * symptoms improving * LDH trending down * Will continue folic acid supplementation * Heme consult appreciated. (5) DM type 2 (diabetes mellitus, type 2) Assessment/Plan: * ADA diet * ISS ACHS * BGM ACHS * metformin held. (6) DVT prophylaxis Assessment/Plan: * Lovenox held due to nose bleed. * encourage ambulation * Bilat SCD's Visit type - Emergency Visit Emergency Visit: Yes ED Registration Date: 04/16/17 Care time: The patient presented to the Emergency Department on the above date and was hospitalized for further evaluation of their emergent condition. - New Patient This patient is new to me today: Yes Date on this admission: 04/20/17 - Critical Care Critical Care patient: No - Discharge Referral Referred to [facility] Med P.C.: No
[2017-04-20] MEDS: traZODone HCL 50 MG TABLET (FP) PO SCH (21:32)
[2017-04-21] MEDS: ALBUTEROL SO4 2.5/IPRATROPIUM 0.5 INH SOL 3 ML VIAL.NEB. NEB SCH ×6 (01:45→22:05)
[2017-04-21] MEDS: INSULIN SLIDING SCALE (NOVOLOG) 1 VIAL SQ SCH ×6 (01:52→21:54)
[2017-04-21] MEDS: HYDROmorphone HCL CARPU-JECT 2 MG/1 ML DISP.SYRIN IVPB PRN ×2 (02:04→11:49)
[2017-04-21] MEDS: SODIUM CHLORIDE 1,000 ML IV SCH ×2 (06:10→20:08)
[2017-04-21 08:21] LABS: MCH 27.3 pg (25.7-33.7); MEAN CELL VOLUME 77.9 fl (80-96); MEAN PLT VOLUME 9.8 fl (7.5-11.1); PLATELET COUNT 229 K/MM3 (134-434); RDW 20.4 % (11.6-15.6); WHITE BLOOD COUNT 19.1 K/mm3 (4.0-10.0)
[2017-04-21 08:42] LABS: ALBUMIN 3.3 g/dl (3.4-5.0); ANION GAP 11 (8-16); CALCIUM 8.2 mg/dL (8.5-10.1); CO2 31 mmol/L (21-32); GLUCOSE,RANDOM 136 mg/dL (74-106)
[2017-04-21 08:46] LABS: ALK PHOS 96 U/L (45-117); BILIRUBIN,TOTAL 1.2 mg/dL (0.2-1.0); CREATININE 0.5 mg/dL (0.55-1.02); LDH 228 U/L (84-246); SGOT/AST 13 U/L (15-37); SGPT/ALT 28 U/L (12-78); TOT PROT 6.3 g/dl (6.4-8.2)
[2017-04-21 10:52] LABS: ANISOCYTOSIS 2+; MICROCYTOSIS 1+; TARGET CELLS 2+
[2017-04-21] MEDS: SERTRALINE HCL 25 MG TABLET (FP) PO SCH (10:58)
[2017-04-21] MEDS: FOLIC ACID 1 MG TABLET (FP) PO SCH (10:58)
[2017-04-21] MEDS: DOCUSATE SODIUM 100 MG CAPSULE (FP) PO SCH ×2 (10:58→21:54)
[2017-04-21] MEDS: CEFTRIAXONE 50 ML IVPB SCH (10:59)
[2017-04-21] MEDS: FLUTICASONE PROP 0.05% 16 GM NASAL SPRAY NS SCH (10:59)
[2017-04-21] MEDS: VALPROATE SODIUM 500 MG/5 ML VIAL IVPB SCH ×2 (10:59→22:05)
[2017-04-21] MEDS: RANITIDINE HCL 150 MG TABLET (FP) PO SCH ×2 (10:59→21:54)
[2017-04-21] MEDS: amLODIPine BESYLATE 5 MG TABLET (FP) PO SCH (10:59)
[2017-04-21] MEDS ORDERED: INSULIN (NOVOLOG) ASPART 100 UNITS/ML 10ML VIAL ONE ×2 (11:55→22:26)
--- NOTE | 2017-04-21 14:23 | PN ---
Progress Note (short form) - Note Progress Note: NEUROLOGY HPI : long history of headaches,which she gets quite frequently, often for days on end, with nausea and dizziness, no phonophobia, questionable photophobia, followed at [facility], previously by Dr. Lui in [place]. She has headaches for about 10 years. The headaches are severe and holocephalgic. She has tried multiple acute and prophylactic agents without benefit she says, including Depakote, amitritpyline, Topamax, and naproxen. She has never used Botox. She says that she has had a stroke in the past but is vague about the details and contradicts this when telling me that Dr. Lui had obtained imaging of her head that was normal, although her back showed a herniated disc. She also complains of vertigo. 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 Cardio/Vascular: Yes: Deep Vein Thrombosis, HTN ...LMP: 03/31/17 ...: No - Past Surgical History Past Surgical History: Yes: Cataract Removal, Cholecystectomy - Alcohol/Substance Use Hx Alcohol Use: No History of Substance Use: reports: None - Smoking History Smoking history: Former smoker Have you smoked in the past 12 months: No Aproximately how many cigarettes per day: 3 If you are a former smoker, when did you quit?: 5 MONTHS AGO Home Medications - Allergies Allergies/Adverse Reactions: Allergies Allergy/AdvReac Type Severity Reaction Status Date / Time No Known Allergies Allergy Verified 01/01/17 15:08 - Home Medications Home Medications: Ambulatory Orders Docusate Sodium [Colace -] 100 mg PO BID 01/01/17 Folic Acid 1 mg PO DAILY 01/01/17 Oxycodone HCl 10 mg PO QID 01/01/17 Amoxicillin/Potassium Clav [Augmentin 875-125 Tablet] 1 each PO BID #14 tablet 01/02/17 Ibuprofen [Motrin -] 600 mg PO QID PRN #30 tablet 01/02/17 Amlodipine Besylate [Norvasc -] 5 mg PO DAILY 04/16/17 Clonazepam [Klonopin -] 2 mg PO BID PRN 04/16/17 Famotidine [Heartburn Prevention] 20 mg PO BID 04/16/17 Metformin HCl [Metformin HCl ER] 500 mg PO ACBK 04/16/17 Sertraline HCl [Zoloft] 25 mg PO DAILY 04/16/17 Tramadol HCl 50 mg PO DAILY PRN 04/16/17 Trazodone HCl 50 mg PO HS 04/16/17 Physical Exam-Neuro Vital Signs: Vital Signs Temperature 98.2 F 04/21/17 06:20 Pulse Rate 108 H 04/21/17 06:20 Respiratory Rate 20 04/21/17 06:20 Blood Pressure 132/94 04/21/17 06:20 O2 Sat by Pulse Oximetry (%) 96 04/20/17 21:00 Labs: CBCD WBC 19.1 K/mm3 (4.0-10.0) H D 04/21/17 07:30 RBC 4.33 M/mm3 (3.60-5.2) 04/21/17 07:30 Hgb 11.8 GM/dL (10.7-15.3) 04/21/17 07:30 Hct 33.7 % (32.4-45.2) 04/21/17 07:30 MCV 77.9 fl (80-96) L 04/21/17 07:30 MCHC 35.0 g/dl (32.0-36.0) 04/21/17 07:30 RDW 20.4 % (11.6-15.6) H 04/21/17 07:30 Plt Count 229 K/MM3 (134-434) 04/21/17 07:30 MPV 9.8 fl (7.5-11.1) 04/21/17 07:30 CMP Sodium 143 mmol/L (136-145) 04/21/17 07:30 Potassium 3.8 mmol/L (3.5-5.1) 04/21/17 07:30 Chloride 101 mmol/L (98-107) 04/21/17 07:30 Carbon Dioxide 31 mmol/L (21-32) 04/21/17 07:30 Anion Gap 11 (8-16) 04/21/17 07:30 BUN 6 mg/dL (7-18) L D 04/21/17 07:30 Creatinine 0.5 mg/dL (0.55-1.02) L D 04/21/17 07:30 Creat Clearance w eGFR > 60 (>60) 04/21/17 07:30 Calcium 8.2 mg/dL (8.5-10.1) L 04/21/17 07:30 Total Bilirubin 1.2 mg/dL (0.2-1.0) H D 04/21/17 07:30 AST 13 U/L (15-37) L 04/21/17 07:30 ALT 28 U/L (12-78) 04/21/17 07:30 Alkaline Phosphatase 96 U/L (45-117) 04/21/17 07:30 Total Protein 6.3 g/dl (6.4-8.2) L 04/21/17 07:30 Albumin 3.3 g/dl (3.4-5.0) L 04/21/17 07:30 - Neuro Exam Cranial Nerves II-XII Intact: Yes DTR's: 2+ Left Bicep, 2+ Right Bicep, 2+ Left Tricep, 2+ Right Tricep, 2+ Left Brachioradialis, 2+ Right Brachioradialis, 2+ Left Achilles, 2+ Right Achilles Babinski: Absent Response to light touch: Normal Motor Strength: 5/5: Left Arm, Right Arm, Left Leg, Right Leg Gait: Deferred NIH Stroke Scale - Total Score NIH Stroke Scale Score: 0 Problem List - Problems (1) Chronic migraine without aura, with status migrainosus Assessment/Plan: cont Depacon 500 mg IV BID x 3 days , can add on TORADOL PRN if no hematologic contraindication may use benadryl/REGLNA combo as well can consider outpt BOTOX 2) Sickel C ell disease, fibromylagia HEM FU , elevated WBC (steroid effect?) --trending down on dilaudid 3) PNA/bronchitis ABX, steroids being tapered 4) LS spondylosis-- no focal weakness or reflex asymmetry check MRI LS Spine , ESR, resident aware Dr Wayne [phone]
--- NOTE | 2017-04-21 14:54 | PN ---
Progress Note (short form) - Note Progress Note: PULMONARY CHART REVIEWED FAMILY PRESENT MODERATE SUBJECTIVE IMPROVEMENT VSS/AFEBRILE ANICTERIC B/L WHEEZES AND RHONCHI SCATTERED S1S2 BS+ NO EDEMA LABS/MEDS/NOTES/IMAGING/MICRO/MEDS REVIEWED LUNG NODULE NOTED ON CT CHEST FOR WHICH FOLLOW UP IS REQUIRED (1) Chest pain Code(s): R07.9 - CHEST PAIN, UNSPECIFIED Qualifiers: Chest pain type: unspecified Qualified Code(s): R07.9 - Chest pain, unspecified (2) DVT (deep venous thrombosis) Code(s): I82.409 - ACUTE EMBOLISM AND THOMBOS UNSP DEEP VN UNSP LOWER EXTREMITY (3) HTN (hypertension) Code(s): I10 - ESSENTIAL (PRIMARY) HYPERTENSION Qualifiers: Hypertension type: essential hypertension Qualified Code(s): I10 - Essential (primary) hypertension (4) Acute bronchospasm Code(s): J98.01 - ACUTE BRONCHOSPASM (5) Cough Code(s): R05 - COUGH (6) Musculoskeletal pain Code(s): M79.1 - MYALGIA Assessment/Plan IV Steroids discontinued WBC declining BD TX Empiric ABX noted O2 as needed VTE prophylaxis CT CHEST F/U OUTPATIENT FOR NODULE Meg HARMAN MD
--- NOTE | 2017-04-21 15:12 | PN ---
Progress Note, Physician History of Present Illness: Headache, dyspnea, chest tightness improving. - Current Medication List Current Medications: Active Medications Albuterol/Ipratropium (Duoneb -) 1 amp NEB Q6H PRN PRN Reason: SHORTNESS OF BREATH Albuterol/Ipratropium (Duoneb -) 1 amp NEB Q4HPO [facility] Last Admin: 04/21/17 14:20 Dose: 1 amp Amlodipine Besylate (Norvasc -) 5 mg PO DAILY [facility] Last Admin: 04/21/17 10:59 Dose: 5 mg Clonazepam (Klonopin -) 1 mg PO BID PRN PRN Reason: ANXIETY Last Admin: 04/19/17 09:18 Dose: 1 mg Docusate Sodium (Colace -) 100 mg PO BID [facility] Last Admin: 04/21/17 10:58 Dose: 100 mg Fluticasone Propionate (Flonase -) 2 spray NS DAILY [facility] Last Admin: 04/21/17 10:59 Dose: 2 spray Folic Acid (Folic Acid -) 1 mg PO DAILY [facility] Last Admin: 04/21/17 10:58 Dose: 1 mg Guaifenesin (Robitussin -) 10 ml PO Q4H PRN PRN Reason: COUGH Last Admin: 04/18/17 21:49 Dose: 10 ml Hydromorphone HCl (Dilaudid Injection -) 1.5 mg IVPB Q3H PRN PRN Reason: PAIN Last Admin: 04/21/17 11:49 Dose: 1.5 mg Ceftriaxone Sodium (Rocephin 1gm Ivpb (Pre-Docked)) 50 mls @ 100 mls/hr IVPB DAILY [facility] Last Admin: 04/21/17 10:59 Dose: 100 mls/hr Sodium Chloride (Normal Saline -) 1,000 mls @ 75 mls/hr IV ASDIR [facility] Last Admin: 04/21/17 06:10 Dose: 75 mls/hr Insulin Aspart (Novolog Vial Sliding Scale -) 1 vial SQ Q4HPO [facility] PRN Reason: Protocol Last Admin: 04/21/17 14:51 Dose: Not Given Ranitidine HCl (Zantac -) 150 mg PO BID [facility] Last Admin: 04/21/17 10:59 Dose: 150 mg Sertraline HCl (Zoloft -) 25 mg PO DAILY [facility] Last Admin: 04/21/17 10:58 Dose: 25 mg Trazodone HCl (Desyrel -) 50 mg PO HS [facility] Last Admin: 04/20/17 21:32 Dose: 50 mg Valproate Sodium (Depacon Injection -) 500 mg IVPB BID [facility] Last Admin: 04/21/17 10:59 Dose: 500 mg - Objective Vital Signs: Vital Signs Temperature 98.0 F 04/21/17 14:38 Pulse Rate 104 H 04/21/17 14:38 Respiratory Rate 20 04/21/17 06:20 Blood Pressure 132/94 04/21/17 06:20 O2 Sat by Pulse Oximetry (%) 95 04/21/17 14:20 Constitutional: Yes: No Distress, Calm Neck: Yes: Supple Cardiovascular: Yes: Regular Rate and Rhythm Respiratory: Yes: Regular, Diminished, Wheezes Gastrointestinal: Yes: Normal Bowel Sounds, Soft Edema: No Labs: CBC, BMP 04/21/17 07:30 04/21/17 07:30 INR, PTT INR 1.15 (0.82-1.09) H 04/16/17 01:03 Problem List - Problems (1) Bronchitis Code(s): J40 - BRONCHITIS, NOT SPECIFIED ACUTE OR CHRONIC (2) Chest pain Code(s): R07.9 - CHEST PAIN, UNSPECIFIED Qualifiers: Chest pain type: unspecified Qualified Code(s): R07.9 - Chest pain, unspecified (3) Chronic migraine without aura, with status migrainosus Code(s): G43.701 - CHRONIC MIGRAINE W/O AURA, NOT INTRACTABLE, W STAT MIGR Qualifiers: Intractability: not intractable Qualified Code(s): G43.701 - Chronic migraine without aura, not intractable, with status migrainosus (4) DM type 2 (diabetes mellitus, type 2) Code(s): E11.9 - TYPE 2 DIABETES MELLITUS WITHOUT COMPLICATIONS Qualifiers: Diabetes mellitus complication status: with unspecified complications Diabetes mellitus fdc insulin use: without terminal press operator use Qualified Code(s): E11.8 - Type 2 diabetes mellitus with unspecified complications; Z79.4 - senior care (current) use of insulin (5) HTN (hypertension) Code(s): I10 - ESSENTIAL (PRIMARY) HYPERTENSION Qualifiers: Hypertension type: essential hypertension Qualified Code(s): I10 - Essential (primary) hypertension (6) Other sickle-cell disease with crisis Code(s): D57.819 - OTHER SICKLE-CELL DISORDERS WITH CRISIS, UNSPECIFIED (7) Acute bronchospasm Code(s): J98.01 - ACUTE BRONCHOSPASM (8) Headache Code(s): R51 - HEADACHE Qualifiers: Headache type: other headache syndrome Qualified Code(s): G44.89 - Other headache syndrome Assessment/Plan 12/04/2016 Normal LV size and fxn without sig valve abnl 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 Acute bronchitis 3. HTN 4. History of DVT 5. Migraine 6. Pulm nodule PLAN: 1. analgesics as needed 2. Continue Amlodipine 5 qd 3. Empiric antibiotic coverage, steroid taper, bronchodilator, O2 as needed 4. Treatment for migraine
[2017-04-21] MEDS ORDERED: HYDROmorphone HCL CARPU-JECT 1 MG/1 ML DISP.SYRIN IVPB PRN (15:55)
--- NOTE | 2017-04-21 16:04 | PN ---
Teaching Attending Note Name of Resident: Humberto Quintero ATTENDING PHYSICIAN STATEMENT I saw and evaluated the patient. I reviewed the resident's note and discussed the case with the resident. I agree with the resident's findings and plan as documented. SUBJECTIVE: no fever ro chillls, feels a little better. GARCIAS has improved , Chest pain only when she coughs, lower back apin and pain in Arms and legs ( chronic ) , feels weak in LE . no incontinence. constipated OBJECTIVE: NAD , AAO MMM, no facial droop. L pupil is deformed and smaller than R . CV: RRR. no MRG Lungs : minimal scattered exp wheezing . minimal rales at bases Abd :s fot, NT, ND , NL BS Ext : no edema . MS : no TTP over spine. TTP over paraspinal muscles in upper back Neuro : no facial droop. L pupil is deformed and smaller than R . R pupil 3 mm and round , reactive to light . nl facails sensation . EOMI. Strength 5/5 in upper and lower extremities proximally and distally. sensation to light touch nL . reflexes 2+ knee jerk, biceps, ankle jerk and BR b/l . A/P : 41 y/o lady with h/o SC disease , lumbar herniated disk, DVTs , recent admission with acute chest syndrome treated with exchange transfusion, who presented with cough , and Chest pain. 1- Chest pain: possibly due to acute vaso-occlusive crises. now improved and remains with cough only. it does not seem that there is acute hemolysis with stable nl hb and nl LDH . - decrease dialudid to 0.5 mg . pt understand the possibility of switching to po tomorrow - monitor blood count - cont gentle hydration 2- possible acute bronchitis: no evidence of PNA . day 5 of ceftriaxone. leuocytosis , which is likely due to steroids, has improved . might dc Abx tomorrow 3- GARCIAS : due to common migraine. nL neuro exam. - cont IV hydration - try benadryl - decrease narcotics - cont VAlproate IV for today, may change to po tomorrow 4- Lower back pain: likely due to her chronic herniated disk. nl Neuro exam in LE - check MRI of L spine - PT 5- constipation , add miralax , colace dispo : HLOC
[2017-04-21] MEDS ORDERED: SENNOSIDES 8.6MG TABLET (FP) PO PRN (16:16)
--- NOTE | 2017-04-21 16:41 | PN ---
Physical Exam: SUBJECTIVE: Patient seen and examined at bedside. Breathing and headache have improved. Continues to complain of back and leg pain. Denies CP,palpitations, n/ v. OBJECTIVE: Vital Signs Period Temp Pulse Resp BP Sys/Tompkins Pulse Ox Last 24 Hr 98.0 F-98.2 F 101-108 19-20 132-143/94-96 95-96 GENERAL: AAOx3, NAD HEAD:NC/AT EYES: PERRL, EOMI, sclera anicteric, conjunctiva clear. No ptosis. NECK: supple, no jvd LUNGS: scattered rhonchi improved, bibasilar rales, HEART: RRR, No M/G/R ABDOMEN: soft, nt, nd, BS(+) EXTREMITIES: 2+ pulses, warm, well-perfused, no edema. NEUROLOGICAL: 5/5 strength in upper and lower extremities. 2+ reflexes biceps and knee jerk. Laboratory Results - last 24 hr 04/20/17 04/20/17 04/21/17 17:37 21:30 01:48 WBC RBC Hgb Hct MCV MCHC RDW Plt Count MPV Neutrophils % Lymphocytes % Monocytes % Eosinophils % Reactive Lymphocytes Anisocytosis Microcytosis Target Cells Retic Count Sodium Potassium Chloride Carbon Dioxide Anion Gap BUN Creatinine Creat Clearance w eGFR POC Glucometer 253 355 306 Random Glucose Calcium Total Bilirubin AST ALT Alkaline Phosphatase LD Total Total Protein Albumin 04/21/17 04/21/17 04/21/17 06:08 07:30 07:30 WBC 19.1 H D RBC 4.33 Hgb 11.8 Hct 33.7 MCV 77.9 L MCHC 35.0 RDW 20.4 H Plt Count 229 MPV 9.8 Neutrophils % 38.0 L D Lymphocytes % 51.0 H D Monocytes % 7.0 Eosinophils % 3.0 D Reactive Lymphocytes 1 D Anisocytosis 2+ Microcytosis 1+ Target Cells 2+ Retic Count Sodium 143 Potassium 3.8 Chloride 101 Carbon Dioxide 31 Anion Gap 11 BUN 6 L D Creatinine 0.5 L D Creat Clearance w eGFR > 60 POC Glucometer 156 Random Glucose 136 H D Calcium 8.2 L Total Bilirubin 1.2 H D AST 13 L ALT 28 Alkaline Phosphatase 96 LD Total 228 Total Protein 6.3 L Albumin 3.3 L 04/21/17 04/21/17 04/21/17 07:30 11:53 14:50 WBC RBC Hgb Hct MCV MCHC RDW Plt Count MPV Neutrophils % Lymphocytes % Monocytes % Eosinophils % Reactive Lymphocytes Anisocytosis Microcytosis Target Cells Retic Count 5.43 H Sodium Potassium Chloride Carbon Dioxide Anion Gap BUN Creatinine Creat Clearance w eGFR POC Glucometer 307 117 Random Glucose Calcium Total Bilirubin AST ALT Alkaline Phosphatase LD Total Total Protein Albumin Active Medications Generic Name Dose Route Start Last Admin Trade Name Freq PRN Reason Stop Dose Admin Albuterol/Ipratropium 1 amp 04/17/17 11:44 Duoneb - NEB Q6H PRN SHORTNESS OF BREATH Albuterol/Ipratropium 1 amp 04/19/17 22:00 04/21/17 14:20 Duoneb - NEB 1 amp Q4HPO NILSON Administration Amlodipine Besylate 5 mg 04/16/17 10:00 04/21/17 10:59 Norvasc - PO 5 mg DAILY N[facility] Administration Clonazepam 1 mg 04/16/17 08:19 04/19/17 09:18 Klonopin - PO 1 mg BID PRN Administration ANXIETY Docusate Sodium 100 mg 04/16/17 10:00 04/21/17 10:58 Colace - PO 100 mg BID NILSON Administration Fluticasone Propionate 2 spray 04/17/17 14:30 04/21/17 10:59 Flonase - NS 2 spray DAILY N[facility] Administration Folic Acid 1 mg 04/16/17 10:00 04/21/17 10:58 Folic Acid - PO 1 mg DAILY N[facility] Administration Guaifenesin 10 ml 04/18/17 13:32 04/18/17 21:49 Robitussin - PO 10 ml Q4H PRN Administration COUGH Hydromorphone HCl 0.5 mg 04/21/17 15:55 Dilaudid Injection - IVPB Q3H PRN PAIN Ceftriaxone Sodium 50 mls @ 100 mls/hr 04/17/17 11:30 04/21/17 10:59 Rocephin 1gm Ivpb (Pre-Docked) IVPB 100 mls/hr DAILY NILSON Administration Sodium Chloride 1,000 mls @ 75 mls/hr 04/19/17 21:15 04/21/17 06:10 Normal Saline - IV 75 mls/hr ASDIR NILSON Administration Insulin Aspart 1 vial 04/19/17 22:05 04/21/17 14:51 Novolog Vial Sliding Scale - SQ Not Given Q4HPO [facility] Protocol Polyethylene Glycol 17 gm 04/21/17 16:15 Miralax (For Daily Use) - PO DAILY NILSON Ranitidine HCl 150 mg 04/16/17 10:30 04/21/17 10:59 Zantac - PO 150 mg BID N[facility]SON Administration Senna 2 tab 04/21/17 16:16 Senna - PO HS PRN CONSTIPATION Sertraline HCl 25 mg 04/16/17 10:00 04/21/17 10:58 Zoloft - PO 25 mg DAILY N[facility] Administration Trazodone HCl 50 mg 04/16/17 22:00 04/20/17 21:32 Desyrel - PO 50 mg HS NILSON Administration Valproate Sodium 500 mg 04/19/17 22:00 04/21/17 10:59 Depacon Injection - IVPB 500 mg BID N[facility]SON Administration ASSESSMENT/PLAN: 41 yo F with pmhx of Sickle cell disease, lumbar herniation, and DVT's admitted for acute vaso-occlusive crisis and bronchitis. Problem List - Problems (1) Vasoocclusive sickle cell crisis Assessment/Plan: * symptoms improving * LDH and Hb stable * Pain meds decreased to Dilaudid 0.5mg IV plan to switch to PO tomorrow. * Continue IVF with NS @ 100 ml/hr * Will continue folic acid supplementation * Heme consult appreciated. (2) Bronchitis Assessment/Plan: * Continue with IV Ceftriaxone (day 4) * No evidence of PNA * Duonebs PRN * fluticasone prop 0.05% 2 sprays daily * Supplemental O2 PRN to maintain SpO2 > 90% * Steroids stopped as they may cause rebound crisis * Pulmonary consult appreciated. (3) Chronic migraine without aura, with status migrainosus Assessment/Plan: * started on [id number] IV BID for 3 days then switch to PO . * patients symptoms have improved. * Benadryl 25mg IV given * Continue hydration with NS (4) HTN (hypertension) Assessment/Plan: * Will continue Amlodipine 5mg PO daily * Cardio consult appreciated. (5) DM type 2 (diabetes mellitus, type 2) Assessment/Plan: * ADA diet * ISS ACHS * BGM ACHS * metformin held. (6) Chronic lower back pain Assessment/Plan: * most likely 2/2 disc herniation * MRI lumbar spine ordered * Physical therapy. (7) DVT prophylaxis Assessment/Plan: * Lovenox 40 mg SQ daily Visit type - Emergency Visit Emergency Visit: Yes ED Registration Date: 04/16/17 Care time: The patient presented to the Emergency Department on the above date and was hospitalized for further evaluation of their emergent condition. - New Patient This patient is new to me today: No - Critical Care Critical Care patient: No - Discharge Referral Referred to [facility] No
[2017-04-21] MEDS: POLYETHYLENE GLYCOL 3350 119 GM BTL PO SCH (18:07)
--- NOTE | 2017-04-21 21:25 | PN ---
Progress Note (short form) - Note Progress Note: PAtient seen and examined States that she feels better AFVSS Cor: RSR, No murmurs, No gallops Lungs: wheezes Abd: Soft, Normal bowel sounds, No organomegaly Ext:No significant edema Abnormal Lab Results 04/21/17 04/21/17 04/21/17 07:30 07:30 07:30 WBC 19.1 H D MCV 77.9 L RDW 20.4 H Neutrophils % 38.0 L D Lymphocytes % 51.0 H D Retic Count 5.43 H BUN 6 L D Creatinine 0.5 L D Random Glucose 136 H D Calcium 8.2 L Total Bilirubin 1.2 H D AST 13 L Total Protein 6.3 L Albumin 3.3 L Meds reviewed A/P 41 y/o female Hgb SC disease, comes in with back, chest pain. Comes in with bronchitis Was being treated for mild pain crisis Now with wheezing, mild hypoxia, pain in lower back , lt. leg (crisis vs disk disease) No e/o hemolytic hilary but need to monitor closely for vasocclusive crisis CXR showed no infiltrate Oxygen to keep sats > 96% Bronchodilators Pain control Gentle hydration
[2017-04-21] MEDS: traZODone HCL 50 MG TABLET (FP) PO SCH (21:54)
[2017-04-22] MEDS ORDERED: INSULIN (NOVOLOG) ASPART 100 UNITS/ML 10ML VIAL ONE ×3 (01:11→21:18)
[2017-04-22] MEDS: INSULIN SLIDING SCALE (NOVOLOG) 1 VIAL SQ SCH ×6 (01:12→21:26)
[2017-04-22] MEDS: ALBUTEROL SO4 2.5/IPRATROPIUM 0.5 INH SOL 3 ML VIAL.NEB. NEB SCH ×6 (02:08→22:38)
[2017-04-22 08:23] LABS: MCH 27.4 pg (25.7-33.7); MCHC 35.4 g/dl (32.0-36.0); MEAN CELL VOLUME 77.5 fl (80-96); MEAN PLT VOLUME 9.3 fl (7.5-11.1); PLATELET COUNT 234 K/MM3 (134-434); RDW 20.2 % (11.6-15.6)
[2017-04-22 09:16] LABS: CALCIUM 8.4 mg/dL (8.5-10.1); COCKROFT - GAULT 149.005; CREATININE 0.6 mg/dL (0.55-1.02)
[2017-04-22] MEDS ORDERED: PT OWN MED DRAWER 7, Y5N ONE ×2 (09:20→21:19)
[2017-04-22] MEDS: CEFTRIAXONE 50 ML IVPB SCH (09:23)
[2017-04-22] MEDS: ENOXAPARIN NA (PORCINE) 40 MG/0.4 ML DISP.SYRIN SQ SCH (09:23)
[2017-04-22] MEDS: FOLIC ACID 1 MG TABLET (FP) PO SCH (09:24)
[2017-04-22] MEDS: POLYETHYLENE GLYCOL 3350 119 GM BTL PO SCH (09:24)
[2017-04-22] MEDS: DOCUSATE SODIUM 100 MG CAPSULE (FP) PO SCH ×2 (09:24→21:25)
[2017-04-22] MEDS: RANITIDINE HCL 150 MG TABLET (FP) PO SCH ×2 (09:24→21:25)
[2017-04-22] MEDS: amLODIPine BESYLATE 5 MG TABLET (FP) PO SCH (09:24)
[2017-04-22] MEDS: SERTRALINE HCL 25 MG TABLET (FP) PO SCH (09:25)
[2017-04-22] MEDS: FLUTICASONE PROP 0.05% 16 GM NASAL SPRAY NS SCH (09:26)
--- NOTE | 2017-04-22 10:24 | PN ---
Progress Note (short form) - Note Progress Note: Feels overall better today. Less CP and SOB. (+) Cough Intake & Output 04/19/17 04/20/17 04/21/17 04/22/17 23:59 23:59 23:59 23:59 Intake Total 700 2875 3975 900 Output Total 600 Balance 700 2875 3975 300 Last Vital Signs Temp Pulse Resp BP Pulse Ox 97.9 F 107 H 20 135/89 96 04/22/17 06:08 04/22/17 06:08 04/22/17 06:08 04/22/17 06:08 04/21/17 20:22 Active Medications Albuterol/Ipratropium (Duoneb -) 1 amp NEB Q6H PRN PRN Reason: SHORTNESS OF BREATH Albuterol/Ipratropium (Duoneb -) 1 amp NEB Q4HPO [facility] Last Admin: 04/22/17 05:38 Dose: 1 amp Amlodipine Besylate (Norvasc -) 5 mg PO DAILY [facility] Last Admin: 04/22/17 09:24 Dose: 5 mg Clonazepam (Klonopin -) 1 mg PO BID PRN PRN Reason: ANXIETY Last Admin: 04/19/17 09:18 Dose: 1 mg Docusate Sodium (Colace -) 100 mg PO BID [facility] Last Admin: 04/22/17 09:24 Dose: 100 mg Enoxaparin Sodium (Lovenox -) 40 mg SQ DAILY [facility] Last Admin: 04/22/17 09:23 Dose: 40 mg Fluticasone Propionate (Flonase -) 2 spray NS DAILY [facility] Last Admin: 04/22/17 09:26 Dose: 2 spray Folic Acid (Folic Acid -) 1 mg PO DAILY [facility] Last Admin: 04/22/17 09:24 Dose: 1 mg Guaifenesin (Robitussin -) 10 ml PO Q4H PRN PRN Reason: COUGH Last Admin: 04/18/17 21:49 Dose: 10 ml Hydromorphone HCl (Dilaudid Injection -) 0.5 mg IVPB Q3H PRN PRN Reason: PAIN Ceftriaxone Sodium (Rocephin 1gm Ivpb (Pre-Docked)) 50 mls @ 100 mls/hr IVPB DAILY [facility] Last Admin: 04/22/17 09:23 Dose: 100 mls/hr Sodium Chloride (Normal Saline -) 1,000 mls @ 75 mls/hr IV ASDIR [facility] Last Admin: 04/21/17 20:08 Dose: 75 mls/hr Insulin Aspart (Novolog Vial Sliding Scale -) 1 vial SQ Q4HPO NILSON PRN Reason: Protocol Last Admin: 04/22/17 06:07 Dose: 3 units Polyethylene Glycol (Miralax (For Daily Use) -) 17 gm PO DAILY [facility] Last Admin: 04/22/17 09:24 Dose: 17 grams Ranitidine HCl (Zantac -) 150 mg PO BID [facility] Last Admin: 04/22/17 09:24 Dose: 150 mg Senna (Senna -) 2 tab PO HS PRN PRN Reason: CONSTIPATION Sertraline HCl (Zoloft -) 25 mg PO DAILY [facility] Last Admin: 04/21/17 10:58 Dose: 25 mg Trazodone HCl (Desyrel -) 50 mg PO HS [facility] Last Admin: 04/21/17 21:54 Dose: 50 mg Valproate Sodium (Depacon Injection -) 500 mg IVPB BID [facility] Last Admin: 04/21/17 22:05 Dose: 500 mg Constitutional: Yes: No Distress, Obese Eyes: Yes: Conjunctiva Clear, EOM Intact HENT: Yes: Atraumatic, Normocephalic Neck: Yes: Supple, Trachea Midline Cardiovascular: Yes: Regular Rate and Rhythm Respiratory: Yes: Cough, Rhonchi, Tachypnea, Wheezes. No: Accessory Muscle Use , Rales, Stridor ...Inspection: Yes: WNL ...Clubbing: No Gastrointestinal: Yes: WNL, Normal Bowel Sounds, Soft Renal/: Yes: WNL Musculoskeletal: Yes: WNL Extremities: Yes: WNL Edema: No Peripheral Pulses WNL: Yes Integumentary: Yes: WNL Neurological: Yes: WNL, Alert, Oriented ...Motor Strength: WNL Psychiatric: Yes: WNL, Alert, Oriented Labs: Laboratory Results - last 24 hr 04/21/17 04/21/17 04/21/17 07:30 11:53 14:50 WBC RBC Hgb Hct MCV MCHC RDW Plt Count MPV Neutrophils % 38.0 L D Lymphocytes % 51.0 H D Monocytes % 7.0 Eosinophils % 3.0 D Reactive Lymphocytes 1 D Anisocytosis 2+ Microcytosis 1+ Target Cells 2+ Sodium Potassium Chloride Carbon Dioxide Anion Gap BUN Creatinine POC Glucometer 307 117 Random Glucose Calcium 04/21/17 04/21/17 04/22/17 18:25 21:53 01:06 WBC RBC Hgb Hct MCV MCHC RDW Plt Count MPV Neutrophils % Lymphocytes % Monocytes % Eosinophils % Reactive Lymphocytes Anisocytosis Microcytosis Target Cells Sodium Potassium Chloride Carbon Dioxide Anion Gap BUN Creatinine POC Glucometer 339 298 171 Random Glucose Calcium 04/22/17 04/22/17 04/22/17 05:54 07:30 07:30 WBC 15.0 H RBC 4.47 Hgb 12.3 Hct 34.7 MCV 77.5 L MCHC 35.4 RDW 20.2 H Plt Count 234 MPV 9.3 Neutrophils % Y Lymphocytes % Y Monocytes % Eosinophils % Reactive Lymphocytes Anisocytosis Microcytosis Target Cells Sodium 142 Potassium 3.7 Chloride 101 Carbon Dioxide 31 Anion Gap 10 BUN 7 Creatinine 0.6 POC Glucometer 176 Random Glucose 153 H Calcium 8.4 L Problem List - Problems (1) Chest pain Code(s): R07.9 - CHEST PAIN, UNSPECIFIED Qualifiers: Chest pain type: unspecified Qualified Code(s): R07.9 - Chest pain, unspecified (2) DVT (deep venous thrombosis) Code(s): I82.409 - ACUTE EMBOLISM AND THOMBOS UNSP DEEP VN UNSP LOWER EXTREMITY (3) HTN (hypertension) Code(s): I10 - ESSENTIAL (PRIMARY) HYPERTENSION Qualifiers: Hypertension type: essential hypertension Qualified Code(s): I10 - Essential (primary) hypertension (4) Acute bronchospasm Code(s): J98.01 - ACUTE BRONCHOSPASM (5) Cough Code(s): R05 - COUGH (6) Musculoskeletal pain Code(s): M79.1 - MYALGIA Assessment/Plan Off systemic steroids BD TX ABX O2 as needed VTE prophylaxis Nasal spray (NO indication of acute chest syndrome) Dr Barajas Problem List - Problems (1) Chest pain Code(s): R07.9 - CHEST PAIN, UNSPECIFIED Qualifiers: Chest pain type: unspecified Qualified Code(s): R07.9 - Chest pain, unspecified (2) DVT (deep venous thrombosis) Code(s): I82.409 - ACUTE EMBOLISM AND THOMBOS UNSP DEEP VN UNSP LOWER EXTREMITY (3) HTN (hypertension) Code(s): I10 - ESSENTIAL (PRIMARY) HYPERTENSION Qualifiers: Hypertension type: essential hypertension Qualified Code(s): I10 - Essential (primary) hypertension (4) Acute bronchospasm Code(s): J98.01 - ACUTE BRONCHOSPASM (5) Cough Code(s): R05 - COUGH (6) Musculoskeletal pain Code(s): M79.1 - MYALGIA
[2017-04-22] MEDS ORDERED: morphine CARPU-JECT 2 MG/1 ML DISP.SYRIN IVPUSH ONE (11:28)
[2017-04-22] MEDS: VALPROATE SODIUM 500 MG/5 ML VIAL IVPB SCH (11:49)
--- NOTE | 2017-04-22 11:57 | HOSP ---
Physical Examination Vital Signs: Vital Signs Temperature 97.9 F 04/22/17 06:08 Pulse Rate 107 H 04/22/17 06:08 Respiratory Rate 20 04/22/17 06:08 Blood Pressure 135/89 04/22/17 06:08 O2 Sat by Pulse Oximetry (%) 96 04/21/17 20:22 Labs: CBC, BMP 04/22/17 07:30 04/22/17 07:30
--- NOTE | 2017-04-22 12:00 | PN ---
Teaching Attending Note Name of Resident: Humberto Quintero ATTENDING PHYSICIAN STATEMENT I saw and evaluated the patient. I reviewed the resident's note and discussed the case with the resident. I agree with the resident's findings and plan as documented. SUBJECTIVE: patient had substernal chest pain , 8/10 in severity with light headedness about 45 min ago while walking with PT. associated with SOB. during that BP 139 /70, HR 103 , SAt O2 98 % on RA. pain lasted 10 min then improved to 1-2 /10 now. she is no longer SOB , has mild light headedness. no change in vision . on exam, looks comfortable in bed. no tachypnia , or distress. completes full sentences . CV: RRR, HR 95-105. Lungs : CTAB Abd : soft, NT, ND , NL BS MS :TTP over lower sternal area, and paraspinal muscles on R upper thoracec area , . no TTP over spine . Neuro : no facial droop. L pupil is deformed and smaller than R . R pupil 3 mm and round , reactive to light . nl facails sensation . EOMI. Strength 5/5 in upper and lower extremities proximally and distally. sensation to light touch nL . reflexes 2+ knee jerk, biceps, ankle jerk and BR b/l . Ext: no edema A/P : 41 y/o lady with h/o SC disease , lumbar herniated disk, DVTs , recent admission with acute chest syndrome treated with exchange transfusion, who presented with cough , and Chest pain. 1- Acute Chest pain with SOB and light headedness which happened 45 min ago, is now almost resolved. unclear etiology, but her CP is reproducible . EKG with no acute EKG changes. Aortic dissection , PE , or pneumothorax are not suspected - check trop .x 2 - repeat Cxray 2- Sickle cell disease, with possible acute vasoocclusive crises . - cont hydration - dc dilaudid . give oxycodone PRN. pt agreeable - no evidence of hemolysis 3- possible acute bronchitis: no evidence of PNA . day 6 of ceftriaxone. Leuocytosis , which is likely due to steroids, COnt to improve will monitor off ABx 4- GARCIAS : due to common migraine. nL neuro exam. GARCIAS much improved - cont IV hydration - change valoproate to PO 5- Lower back pain: likely due to her chronic herniated disk. nl Neuro exam in LE - MRI of L spine pending read - PT 6- constipation , Cont miralax , colace dispo : HLOC anticipate dc in 1-2 days
[2017-04-22 12:04] LABS: TROPONIN I < 0.02 ng/ml (0.00-0.05)
[2017-04-22 12:32] LABS: PLATELET ESTIMATE ADEQUATE (NORMAL)
[2017-04-22] MEDS: oxyCODONE HCL 5 MG TABLET PO PRN ×2 (12:59→21:32)
--- NOTE | 2017-04-22 15:37 | PN ---
Physical Exam: SUBJECTIVE: Patient seen and examined at bedside. Had episode of chest pain this morning with PT that has since subside.Lying comfortably. Chest pain minimal. Breathing has improved. GARCIAS she says are "ok". Pain well controlled. Denies palpitations, N/V. OBJECTIVE: Vital Signs Period Temp Pulse Resp BP Sys/Tompkins Pulse Ox Last 24 Hr 97.9 F-98.4 F 101-112 18-20 135-146/86-97 96-96 GENERAL: AAOx3, NAD HEAD:NC/AT EYES: PERRL, EOMI, sclera anicteric, conjunctiva clear. No ptosis. NECK: supple, no jvd LUNGS:minimal scattered rhonchi improved HEART: RRR, No M/G/R ABDOMEN: soft, nt, nd, BS(+) EXTREMITIES: 2+ pulses, warm, well-perfused, no edema. NEUROLOGICAL: 5/5 strength in upper and lower extremities. 2+ reflexes biceps and knee jerk. Laboratory Results - last 24 hr 04/21/17 04/21/17 04/22/17 18:25 21:53 01:06 WBC Hct MCV MCHC RDW Plt Count MPV Neutrophils % Lymphocytes % Monocytes % Eosinophils % Differential Comment Platelet Estimate Sodium Potassium Chloride Carbon Dioxide Anion Gap BUN Creatinine POC Glucometer 339 298 171 Random Glucose Calcium Creatine Kinase Troponin I 04/22/17 04/22/17 04/22/17 05:54 07:30 07:30 WBC 15.0 H RBC 4.47 Hgb 12.3 Hct 34.7 MCV 77.5 L MCHC 35.4 RDW 20.2 H Plt Count 234 MPV 9.3 Neutrophils % 30.0 L D Lymphocytes % 51.0 H Monocytes % 15.0 H D Eosinophils % 4.0 Differential Comment Manual diff done Platelet Estimate Adequate Sodium 142 Potassium 3.7 Chloride 101 Carbon Dioxide 31 Anion Gap 10 BUN 7 Creatinine 0.6 POC Glucometer 176 Random Glucose 153 H Calcium 8.4 L Creatine Kinase Troponin I 04/22/17 04/22/17 04/22/17 11:15 11:58 14:28 WBC RBC Hgb Hct MCV MCHC RDW Plt Count MPV Neutrophils % Lymphocytes % Monocytes % Eosinophils % Differential Comment Platelet Estimate Sodium Potassium Chloride Carbon Dioxide Anion Gap BUN Creatinine POC Glucometer 232 244 Random Glucose Calcium Creatine Kinase 20 L Troponin I < 0.02 Active Medications Generic Name Dose Route Start Last Admin Trade Name Freq PRN Reason Stop Dose Admin Albuterol/Ipratropium 1 amp 04/17/17 11:44 Duoneb - NEB Q6H PRN SHORTNESS OF BREATH Albuterol/Ipratropium 1 amp 04/19/17 22:00 04/22/17 12:04 Duoneb - NEB 1 amp Q4HPO [facility] Administration Amlodipine Besylate 5 mg 04/16/17 10:00 04/22/17 09:24 Norvasc - PO 5 mg DAILY [facility] Administration Clonazepam 1 mg 04/16/17 08:19 04/19/17 09:18 Klonopin - PO 1 mg BID PRN Administration ANXIETY Docusate Sodium 100 mg 04/16/17 10:00 04/22/17 09:24 Colace - PO 100 mg BID NILSON Administration Enoxaparin Sodium 40 mg 04/22/17 10:00 04/22/17 09:23 Lovenox - SQ 40 mg DAILY [facility] Administration Fluticasone Propionate 2 spray 04/17/17 14:30 04/22/17 09:26 Flonase - NS 2 spray DAILY [facility] Administration Folic Acid 1 mg 04/16/17 10:00 04/22/17 09:24 Folic Acid - PO 1 mg DAILY [facility] Administration Guaifenesin 10 ml 04/18/17 13:32 04/18/17 21:49 Robitussin - PO 10 ml Q4H PRN Administration COUGH Sodium Chloride 1,000 mls @ 75 mls/hr 04/19/17 21:15 04/21/17 20:08 Normal Saline - IV 75 mls/hr ASDIR NILSON Administration Insulin Aspart 1 vial 04/19/17 22:05 04/22/17 14:33 Novolog Vial Sliding Scale - SQ 5 units Q4HPO [facility]IL[facility] Administration Protocol Oxycodone HCl 5 mg 04/22/17 11:46 04/22/17 12:59 Roxicodone - PO 5 mg Q4H PRN Administration PAIN Polyethylene Glycol 17 gm 04/21/17 16:15 04/22/17 09:24 Miralax (For Daily Use) - PO 17 grams DAILY [facility] Administration Ranitidine HCl 150 mg 04/16/17 10:30 04/22/17 09:24 Zantac - PO 150 mg BID [facility] Administration Senna 2 tab 04/21/17 16:16 Senna - PO HS PRN CONSTIPATION Sertraline HCl 25 mg 04/16/17 10:00 04/22/17 09:25 Zoloft - PO 25 mg DAILY [facility] Administration Trazodone HCl 50 mg 04/16/17 22:00 04/21/17 21:54 Desyrel - PO 50 mg HS [facility]IL[facility] Administration Valproic Acid 500 mg 04/22/17 22:00 Depakene - PO BID [facility] IMAGING: * EXAM#: TYPE/EXAM: RESULT: [id number] MRI/LUMBAR SPINE MRI W/O CONTRAST Chronic back pain. MRI of the lumbar spine without intravenous contrast. T1/T2 weighted axial and sagittal images were obtained. Patient could not tolerate completing the examination. T2 coronal images were not obtained. There is straightening of the lumbar spine. The height , alignment and marrow signal intensity of the vertebral bodies appear unremarkable. Conus tip is in satisfactory anatomical position and appears unremarkable. At L5-S1 level, there is mild central disc bulge with a tiny right paracentral posterior tear and there is minimal inferior extension. Disc is almost reaching right S1 nerve root without impingement. Notes made of a small cyst in the right kidney measuring 8 mm and another one in the left kidney measuring 9 mm. No paraspinal soft tissue mass is identified. T2 coronal images were not obtained. Patient could not tolerate completing the exam. IMPRESSION: L5-S1 disc desiccation with mild central disc bulge/protrusion, a tiny right paracentral posterior annular tear and minimal extension of the disc, inferiorly. The disc is almost contacting right S1 nerve root without gross impingement. Reported By: Omar Lim MD ASSESSMENT/PLAN: 41 yo F with pmhx of Sickle cell disease, lumbar herniation, and DVT's admitted for acute vaso-occlusive crisis and bronchitis Problem List - Problems (1) Chest pain Assessment/Plan: * CP occurred while walking with physical therapy, she states pain was 8/10 substernal pressure that lasted approx 10 minutes and resolved with rest. * Pain was reproducible with palpation. * STAT EKG showed no acute changes. * First set of trops (-) second set pending. * CXR was unchanged from prior. (2) Vasoocclusive sickle cell crisis Assessment/Plan: * symptoms improving * Pain meds switched to PO Oxycodone. * Continue IVF with NS @ 100 ml/hr * Will continue folic acid supplementation * Heme consult appreciated. (3) Bronchitis Assessment/Plan: * stop IV Ceftriaxone (day 6) * No evidence of PNA * Duonebs PRN * fluticasone prop 0.05% 2 sprays daily * Supplemental O2 PRN to maintain SpO2 > 90% * Steroids stopped as they may cause rebound crisis * Pulmonary consult appreciated. (4) Chronic migraine without aura, with status migrainosus Assessment/Plan: * Depacon 500mg IV BID for 3 days then switched to PO . * patients symptoms have improved. * Continue hydration with NS (5) HTN (hypertension) Assessment/Plan: * Will continue Amlodipine 5mg PO daily * Cardio consult appreciated. (6) DM type 2 (diabetes mellitus, type 2) Assessment/Plan: * ADA diet * ISS ACHS * BGM ACHS * metformin held. (7) Chronic lower back pain Assessment/Plan: * most likely 2/2 disc herniation * MRI lumbar spine reported above * Physical therapy daily (8) DVT prophylaxis Assessment/Plan: * Lovenox 40 mg SQ daily Visit type - Emergency Visit Emergency Visit: Yes ED Registration Date: 04/16/17 Care time: The patient presented to the Emergency Department on the above date and was hospitalized for further evaluation of their emergent condition. - New Patient This patient is new to me today: No - Critical Care Critical Care patient: No - Discharge Referral Referred to [facility] No
--- NOTE | 2017-04-22 16:27 | EKG ---
Test Reason : Blood Pressure : / mmHG Vent. Rate : 100 BPM Atrial Rate : 100 BPM P-R Int : 148 ms QRS Dur : 074 ms QT Int : 344 ms P-R-T Axes : 045 -18 012 degrees QTc Int : 443 ms NORMAL SINUS RHYTHM VOLTAGE CRITERIA FOR LEFT VENTRICULAR HYPERTROPHY ABNORMAL ECG WHEN COMPARED WITH ECG OF 16-APR-2017 04:12, NO SIGNIFICANT CHANGE WAS FOUND Confirmed by JEREMY SANFORD MD ([id number]) on 04/22/2017 4:26:50 PM Referred By: NOBLE DRUMMOND Confirmed By:JEREMY SANFORD MD
[2017-04-22 16:59] LABS: URINE APPEARANCE CLEAR; URINE BILIRUBIN NEGATIVE (NEGATIVE); URINE BLOOD NEGATIVE (NEGATIVE); URINE COLOR STRAW; URINE GLUCOSE (UA) NEGATIVE (NEGATIVE); URINE KETONE NEGATIVE (NEGATIVE); URINE NITRITE NEGATIVE (NEGATIVE); URINE PROTEIN NEGATIVE (NEGATIVE); URINE UROBILINOGEN NEGATIVE E.U./dl (0.2-1.0)
[2017-04-22 17:02] LABS: URINE LEUK ESTERASE 3+ (NEGATIVE)
[2017-04-22 17:38] LABS: URINE RBC 4 /hpf (0-3); URINE WBC 15 /hpf (3-5)
[2017-04-22 19:08] LABS: TROPONIN I < 0.02 ng/ml (0.00-0.05)
[2017-04-22] MEDS: SODIUM CHLORIDE 1,000 ML IV SCH (19:25)
[2017-04-22] MEDS: traZODone HCL 50 MG TABLET (FP) PO SCH (21:25)
[2017-04-22] MEDS: VALPROIC ACID 250 MG CAPSULE PO SCH (22:32)
[2017-04-23] MEDS: INSULIN SLIDING SCALE (NOVOLOG) 1 VIAL SQ SCH ×3 (01:31→10:15)
[2017-04-23] MEDS: ALBUTEROL SO4 2.5/IPRATROPIUM 0.5 INH SOL 3 ML VIAL.NEB. NEB SCH ×4 (01:35→14:28)
[2017-04-23 07:38] LABS: BASOPHIL 0.2 % (0-2.0); EOSINOPHIL 8.2 % (0-4.5); MCH 27.7 pg (25.7-33.7); MCHC 35.3 g/dl (32.0-36.0); MEAN CELL VOLUME 78.3 fl (80-96); MEAN PLT VOLUME 9.6 fl (7.5-11.1); NEUTROPHILS 29.9 % (42.8-82.8); PLATELET COUNT 225 K/MM3 (134-434); RDW 20.3 % (11.6-15.6); WHITE BLOOD COUNT 11.5 K/mm3 (4.0-10.0)
--- NOTE | 2017-04-23 07:53 | PN ---
Progress Note (short form) - Note Progress Note: NEUROLOGY HPI : long history of headaches,which she gets quite frequently, often for days on end, with nausea and dizziness, no phonophobia, questionable photophobia, followed at [facility], previously by Dr. Lui in [place]. She has headaches for about 10 years. The headaches are severe and holocephalgic. She has tried multiple acute and prophylactic agents without benefit she says, including Depakote, amitritpyline, Topamax, and naproxen. She has never used Botox. She says that she has had a stroke in the past but is vague about the details and contradicts this when telling me that Dr. Lui had obtained imaging of her head that was normal, although her back showed a herniated disc. She also complains of vertigo. 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 Cardio/Vascular: Yes: Deep Vein Thrombosis, HTN ...LMP: 03/31/17 ...: No - Past Surgical History Past Surgical History: Yes: Cataract Removal, Cholecystectomy - Alcohol/Substance Use Hx Alcohol Use: No History of Substance Use: reports: None - Smoking History Smoking history: Former smoker Have you smoked in the past 12 months: No Aproximately how many cigarettes per day: 3 If you are a former smoker, when did you quit?: 5 MONTHS AGO Home Medications - Allergies Allergies/Adverse Reactions: Allergies Allergy/AdvReac Type Severity Reaction Status Date / Time No Known Allergies Allergy Verified 01/01/17 15:08 - Home Medications Home Medications: Ambulatory Orders Docusate Sodium [Colace -] 100 mg PO BID 01/01/17 Folic Acid 1 mg PO DAILY 01/01/17 Oxycodone HCl 10 mg PO QID 01/01/17 Amoxicillin/Potassium Clav [Augmentin 875-125 Tablet] 1 each PO BID #14 tablet 01/02/17 Ibuprofen [Motrin -] 600 mg PO QID PRN #30 tablet 01/02/17 Amlodipine Besylate [Norvasc -] 5 mg PO DAILY 04/16/17 Clonazepam [Klonopin -] 2 mg PO BID PRN 04/16/17 Famotidine [Heartburn Prevention] 20 mg PO BID 04/16/17 Metformin HCl [Metformin HCl ER] 500 mg PO ACBK 04/16/17 Sertraline HCl [Zoloft] 25 mg PO DAILY 04/16/17 Tramadol HCl 50 mg PO DAILY PRN 04/16/17 Trazodone HCl 50 mg PO HS 04/16/17 Physical Exam-Neuro Vital Signs: Vital Signs Temperature 98.0 F 04/23/17 06:03 Pulse Rate 102 H 04/23/17 06:03 Respiratory Rate 20 04/23/17 06:03 Blood Pressure 117/71 04/23/17 06:03 O2 Sat by Pulse Oximetry (%) 96 04/22/17 21:00 Labs: CBCD WBC 11.5 K/mm3 (4.0-10.0) H 04/23/17 06:25 RBC 4.13 M/mm3 (3.60-5.2) 04/23/17 06:25 Hgb 11.4 GM/dL (10.7-15.3) 04/23/17 06:25 Hct 32.4 % (32.4-45.2) 04/23/17 06:25 MCV 78.3 fl (80-96) L 04/23/17 06:25 MCHC 35.3 g/dl (32.0-36.0) 04/23/17 06:25 RDW 20.3 % (11.6-15.6) H 04/23/17 06:25 Plt Count 225 K/MM3 (134-434) 04/23/17 06:25 MPV 9.6 fl (7.5-11.1) 04/23/17 06:25 CMP Sodium 142 mmol/L (136-145) 04/22/17 07:30 Potassium 3.7 mmol/L (3.5-5.1) 04/22/17 07:30 Chloride 101 mmol/L (98-107) 04/22/17 07:30 Carbon Dioxide 31 mmol/L (21-32) 04/22/17 07:30 Anion Gap 10 (8-16) 04/22/17 07:30 BUN 7 mg/dL (7-18) 04/22/17 07:30 Creatinine 0.6 mg/dL (0.55-1.02) 04/22/17 07:30 Creat Clearance w eGFR > 60 (>60) 04/21/17 07:30 Calcium 8.4 mg/dL (8.5-10.1) L 04/22/17 07:30 Total Bilirubin 1.2 mg/dL (0.2-1.0) H D 04/21/17 07:30 AST 13 U/L (15-37) L 04/21/17 07:30 ALT 28 U/L (12-78) 04/21/17 07:30 Alkaline Phosphatase 96 U/L (45-117) 04/21/17 07:30 Total Protein 6.3 g/dl (6.4-8.2) L 04/21/17 07:30 Albumin 3.3 g/dl (3.4-5.0) L 04/21/17 07:30 - Neuro Exam Cranial Nerves II-XII Intact: Yes DTR's: 2+ Left Bicep, 2+ Right Bicep, 2+ Left Tricep, 2+ Right Tricep, 2+ Left Brachioradialis, 2+ Right Brachioradialis, 2+ Left Achilles, 2+ Right Achilles Babinski: Absent Response to light touch: Normal Motor Strength: 5/5: Left Arm, Right Arm, Left Leg, Right Leg Gait: Deferred NIH Stroke Scale - Total Score NIH Stroke Scale Score: 0 Problem List - Problems (1) Chronic migraine without aura, with status migrainosus Assessment/Plan: cont depakote PO though will reasess if this works oupt ( watch for weight gain etc) can consider outpt BOTOX can FU with her own outpt neuro 2) LS spondylosis-- more likley muscular strain no focal weakness or reflex asymmetry MRI no benito herniation , or benito radiculopathy can add flexeril if needed PT consult neuro cleared Dr Wayne [phone]
[2017-04-23 09:08] LABS: ALBUMIN 3.1 g/dl (3.4-5.0); ALK PHOS 88 U/L (45-117); ANION GAP 8 (8-16); BILIRUBIN,TOTAL 0.9 mg/dL (0.2-1.0); CALCIUM 8.1 mg/dL (8.5-10.1); CO2 31 mmol/L (21-32); CREATININE 0.5 mg/dL (0.55-1.02); GLUCOSE,RANDOM 115 mg/dL (74-106); LDH 170 U/L (84-246); SGOT/AST 14 U/L (15-37); SGPT/ALT 21 U/L (12-78); TOT PROT 5.8 g/dl (6.4-8.2)
[2017-04-23] MEDS ORDERED: PT OWN MED DRAWER 7, Y5N ONE (09:22)
[2017-04-23] MEDS: amLODIPine BESYLATE 5 MG TABLET (FP) PO SCH (09:55)
[2017-04-23] MEDS: DOCUSATE SODIUM 100 MG CAPSULE (FP) PO SCH (09:57)
[2017-04-23] MEDS: ENOXAPARIN NA (PORCINE) 40 MG/0.4 ML DISP.SYRIN SQ SCH (09:57)
[2017-04-23] MEDS: FLUTICASONE PROP 0.05% 16 GM NASAL SPRAY NS SCH (09:58)
[2017-04-23] MEDS: RANITIDINE HCL 150 MG TABLET (FP) PO SCH (09:58)
[2017-04-23] MEDS: FOLIC ACID 1 MG TABLET (FP) PO SCH (09:58)
[2017-04-23] MEDS: SERTRALINE HCL 25 MG TABLET (FP) PO SCH (09:59)
[2017-04-23] MEDS: VALPROIC ACID 250 MG CAPSULE PO SCH (09:59)
[2017-04-23] MEDS: POLYETHYLENE GLYCOL 3350 119 GM BTL PO SCH (10:00)
[2017-04-23] MEDS: SODIUM CHLORIDE 1,000 ML IV SCH (10:00)
[2017-04-23] MEDS ORDERED: INSULIN (NOVOLOG) ASPART 100 UNITS/ML 10ML VIAL ONE (10:13)
[2017-04-23] MEDS: clonazePAM 0.5 MG TABLET PO PRN (10:13)
--- NOTE | 2017-04-23 12:42 | PN ---
Progress Note (short form) - Note Progress Note: PULMONARY SUBJECTIVE IMPROVEMENT VSS/AFEBRILE ANICTERIC MINIMAL EXP WHEEZE S1S2 BS+ NO EDEMA LABS/MEDS/NOTES/IMAGING/MICRO/MEDS REVIEWED LUNG NODULE NOTED ON CT CHEST FOR WHICH FOLLOW UP IS REQUIRED (1) Chest pain Code(s): R07.9 - CHEST PAIN, UNSPECIFIED Qualifiers: Chest pain type: unspecified Qualified Code(s): R07.9 - Chest pain, unspecified (2) DVT (deep venous thrombosis) Code(s): I82.409 - ACUTE EMBOLISM AND THOMBOS UNSP DEEP VN UNSP LOWER EXTREMITY (3) HTN (hypertension) Code(s): I10 - ESSENTIAL (PRIMARY) HYPERTENSION Qualifiers: Hypertension type: essential hypertension Qualified Code(s): I10 - Essential (primary) hypertension (4) Acute bronchospasm Code(s): J98.01 - ACUTE BRONCHOSPASM (5) Cough Code(s): R05 - COUGH (6) Musculoskeletal pain Code(s): M79.1 - MYALGIA Assessment/Plan CAN F/U OUTPATIENT WITH OUR PRACTICE BRONCHODILATORS CT CHEST F/U OUTPATIENT FOR NODULE Meg HARMAN MD
--- NOTE | 2017-04-23 14:52 | PN ---
Teaching Attending Note Name of Resident: Humberto Quintero ATTENDING PHYSICIAN STATEMENT I saw and evaluated the patient. I reviewed the resident's note and discussed the case with the resident. I agree with the resident's findings and plan as documented. SUBJECTIVE: no fever or chills, feels much better today . has no CP , and GARCIAS is much better. denies SOB . or cough OBJECTIVE: NAD CV: RRR, Lungs : CTAB EXt : no edema A/P : 41 y/o lady with h/o SC disease , lumbar herniated disk, DVTs , recent admission with acute chest syndrome treated with exchange transfusion, who presented with cough , and Chest pain. 1- Chest pain : resolved . 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 - no evidence of hemolysis - chest pain resolved. cont to have stable HB. - stop IVF . 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 continued 6 days of Abx . leukocytosis (part of it was a reaction to steroids ) improved , almost normal 4- GARCIAS : due to common migraine. GARCIAS much improved - Cont valoproate to PO - try to avoid excessive narcotic use 5- Lower back pain: likely due to her chronic herniated disk. MRI with no cord compression , abscess or Fx out pt f/u 6- constipation , Cont miralax , colace dc home today . D/W HEme and pulm
--- NOTE | 2017-04-23 14:52 | PN ---
Progress Note, Physician History of Present Illness: Headache, dyspnea, chest tightness improving. - Current Medication List Current Medications: Active Medications Albuterol/Ipratropium (Duoneb -) 1 amp NEB Q6H PRN PRN Reason: SHORTNESS OF BREATH Albuterol/Ipratropium (Duoneb -) 1 amp NEB Q4HPO [facility] Last Admin: 04/23/17 14:28 Dose: 1 amp Amlodipine Besylate (Norvasc -) 5 mg PO DAILY [facility] Last Admin: 04/23/17 09:55 Dose: 5 mg Clonazepam (Klonopin -) 1 mg PO BID PRN PRN Reason: ANXIETY Last Admin: 04/23/17 10:13 Dose: 1 mg Docusate Sodium (Colace -) 100 mg PO BID [facility] Last Admin: 04/23/17 09:57 Dose: 100 mg Enoxaparin Sodium (Lovenox -) 40 mg SQ DAILY [facility] Last Admin: 04/23/17 09:57 Dose: 40 mg Fluticasone Propionate (Flonase -) 2 spray NS DAILY [facility] Last Admin: 04/23/17 09:58 Dose: 2 spray Folic Acid (Folic Acid -) 1 mg PO DAILY [facility] Last Admin: 04/23/17 09:58 Dose: 1 mg Guaifenesin (Robitussin -) 10 ml PO Q4H PRN PRN Reason: COUGH Last Admin: 04/18/17 21:49 Dose: 10 ml Insulin Aspart (Novolog Vial Sliding Scale -) 1 vial SQ Q4HPO [facility] PRN Reason: Protocol Last Admin: 04/23/17 10:15 Dose: 8 units Oxycodone HCl (Roxicodone -) 5 mg PO Q4H PRN PRN Reason: PAIN Last Admin: 04/22/17 21:32 Dose: 5 mg Polyethylene Glycol (Miralax (For Daily Use) -) 17 gm PO DAILY [facility] Last Admin: 04/23/17 10:00 Dose: Not Given Ranitidine HCl (Zantac -) 150 mg PO BID [facility] Last Admin: 04/23/17 09:58 Dose: 150 mg Senna (Senna -) 2 tab PO HS PRN PRN Reason: CONSTIPATION Sertraline HCl (Zoloft -) 25 mg PO DAILY [facility] Last Admin: 04/23/17 09:59 Dose: 25 mg Trazodone HCl (Desyrel -) 50 mg PO HS [facility] Last Admin: 04/22/17 21:25 Dose: 50 mg Valproic Acid (Depakene -) 500 mg PO BID [facility] Last Admin: 04/23/17 09:59 Dose: 500 mg - Objective Vital Signs: Vital Signs Temperature 98.0 F 04/23/17 06:03 Pulse Rate 102 H 04/23/17 06:03 Respiratory Rate 17 04/23/17 09:00 Blood Pressure 117/71 04/23/17 06:03 O2 Sat by Pulse Oximetry (%) 95 04/23/17 09:00 Constitutional: Yes: No Distress, Calm Neck: Yes: Supple Cardiovascular: Yes: Regular Rate and Rhythm Respiratory: Yes: Regular, Diminished Gastrointestinal: Yes: Normal Bowel Sounds, Soft Edema: No Labs: CBC, BMP 04/23/17 06:25 04/23/17 06:25 INR, PTT INR 1.15 (0.82-1.09) H 04/16/17 01:03 - ....Imaging Chest X-ray: Report Reviewed (NAD) EKG: Report Reviewed (NSR LVH) Problem List - Problems (1) Bronchitis Code(s): J40 - BRONCHITIS, NOT SPECIFIED ACUTE OR CHRONIC (2) Chest pain Code(s): R07.9 - CHEST PAIN, UNSPECIFIED Qualifiers: Chest pain type: other chest pain Qualified Code(s): R07.89 - Other chest pain; R07.8 - Other chest pain (3) Chronic migraine without aura, with status migrainosus Code(s): G43.701 - CHRONIC MIGRAINE W/O AURA, NOT INTRACTABLE, W STAT MIGR Qualifiers: Intractability: not intractable Qualified Code(s): G43.701 - Chronic migraine without aura, not intractable, with status migrainosus (4) DM type 2 (diabetes mellitus, type 2) Code(s): E11.9 - TYPE 2 DIABETES MELLITUS WITHOUT COMPLICATIONS Qualifiers: Diabetes mellitus complication status: with unspecified complications Diabetes mellitus mcfp insulin use: without superintendent terminal use Qualified Code(s): E11.8 - Type 2 diabetes mellitus with unspecified complications; Z79.4 - snf (current) use of insulin (5) HTN (hypertension) Code(s): I10 - ESSENTIAL (PRIMARY) HYPERTENSION Qualifiers: Hypertension type: essential hypertension Qualified Code(s): I10 - Essential (primary) hypertension (6) Other sickle-cell disease with crisis Code(s): D57.819 - OTHER SICKLE-CELL DISORDERS WITH CRISIS, UNSPECIFIED (7) Acute bronchospasm Code(s): J98.01 - ACUTE BRONCHOSPASM (8) Headache Code(s): R51 - HEADACHE Qualifiers: Headache type: other headache syndrome Qualified Code(s): G44.89 - Other headache syndrome Assessment/Plan 12/04/2016 Normal LV size and fxn without sig valve abnl 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 Acute bronchitis improving 3. HTN 4. History of DVT 5. Migraine 6. Pulm nodule PLAN: 1. Analgesics as needed 2. Continue Amlodipine 5 qd 3. Steroid taper, bronchodilator, O2 as needed 4. Treatment for migraine 5. D/c planning
[2017-04-23 15:03] VITALS: BP 127/80; PULSE 103; TEMP 98.4
--- NOTE | 2017-04-23 15:18 | DS ---
Physical Exam: SUBJECTIVE: Patient seen and examined OBJECTIVE: Vital Signs Period Temp Pulse Resp BP Sys/Tompkins Pulse Ox Last 24 Hr 98.0 F-98.5 F 102-115 17-20 117-155/71-94 95-96 PHYSICAL EXAM GENERAL: The patient is awake, alert, and fully oriented, in no acute distress. HEAD: Normal with no signs of trauma. EYES: PERRL, extraocular movements intact, sclera anicteric, conjunctiva clear. ENT: Ears normal, nares patent, oropharynx clear without exudates, moist mucous membranes. NECK: Trachea midline, full range of motion, supple. LUNGS: Breath sounds equal, clear to auscultation bilaterally, no wheezes, no crackles, no accessory muscle use. HEART: Regular rate and rhythm, S1, S2 without murmur, rub or gallop. ABDOMEN: Soft, nontender, nondistended, normoactive bowel sounds, no guarding, no rebound, no hepatosplenomegaly, no masses. EXTREMITIES: 2+ pulses, warm, well-perfused, no edema. NEUROLOGICAL: Cranial nerves II through XII grossly intact. Normal speech, gait not observed. PSYCH: Normal mood, normal affect. SKIN: Warm, dry, normal turgor, no rashes or lesions noted. LABS Laboratory Results - last 24 hr 04/22/17 04/22/17 04/22/17 16:42 17:45 18:16 WBC RBC Hgb Hct MCV MCHC RDW Plt Count MPV Neutrophils % Lymphocytes % Monocytes % Eosinophils % Basophils % Sodium Potassium Chloride Carbon Dioxide Anion Gap BUN Creatinine Creat Clearance w eGFR POC Glucometer 321 Random Glucose Calcium Total Bilirubin AST ALT Alkaline Phosphatase LD Total Creatine Kinase 22 L Troponin I < 0.02 Total Protein Albumin Urine Color Straw Urine Appearance Clear Urine pH 7.0 Ur Specific [place] 1.015 Urine Protein Negative Urine Glucose (UA) Negative Urine Ketones Negative Urine Blood Negative Urine Nitrite Negative Urine Bilirubin Negative Urine Urobilinogen Negative Ur Leukocyte Esterase 3+ H Urine RBC 4 Urine WBC 15 Ur Epithelial Cells Rare 04/22/17 04/23/17 04/23/17 21:24 01:30 05:40 WBC RBC Hgb Hct MCV MCHC RDW Plt Count MPV Neutrophils % Lymphocytes % Monocytes % Eosinophils % Basophils % Sodium Potassium Chloride Carbon Dioxide Anion Gap BUN Creatinine Creat Clearance w eGFR POC Glucometer 236 298 141 Random Glucose Calcium Total Bilirubin AST ALT Alkaline Phosphatase LD Total Creatine Kinase Troponin I Total Protein Albumin Urine Color Urine Appearance Urine pH Ur Specific [place] Urine Protein Urine Glucose (UA) Urine Ketones Urine Blood Urine Nitrite Urine Bilirubin Urine Urobilinogen Ur Leukocyte Esterase Urine RBC Urine WBC Ur Epithelial Cells 04/23/17 04/23/17 04/23/17 06:25 06:25 10:06 WBC 11.5 H RBC 4.13 Hgb 11.4 Hct 32.4 MCV 78.3 L MCHC 35.3 RDW 20.3 H Plt Count 225 MPV 9.6 Neutrophils % 29.9 L Lymphocytes % 50.0 H Monocytes % 11.7 H Eosinophils % 8.2 H D Basophils % 0.2 Sodium 140 Potassium 3.9 Chloride 101 Carbon Dioxide 31 Anion Gap 8 BUN 7 Creatinine 0.5 L Creat Clearance w eGFR > 60 POC Glucometer 263 Random Glucose 115 H D Calcium 8.1 L Total Bilirubin 0.9 D AST 14 L ALT 21 D Alkaline Phosphatase 88 LD Total 170 D Creatine Kinase Troponin I Total Protein 5.8 L Albumin 3.1 L Urine Color Urine Appearance Urine pH Ur Specific [place] Urine Protein Urine Glucose (UA) Urine Ketones Urine Blood Urine Nitrite Urine Bilirubin Urine Urobilinogen Ur Leukocyte Esterase Urine RBC Urine WBC Ur Epithelial Cells HOSPITAL COURSE: Date of Admission:04/16/17 Date of Discharge: 04/23/17 Discharge Summary Reason For Visit: SICKLE CELL CRISIS ACUTE CHEST SYNDROME Current Active Problems Bronchitis (Acute) Chest pain (Acute) HTN (hypertension) (Acute) Leukocytosis (Acute) Vasoocclusive sickle cell crisis (Acute) Chronic lower back pain (Chronic) Chronic migraine without aura, with status migrainosus (Chronic) DM type 2 (diabetes mellitus, type 2) (Chronic) Condition: Stable - Instructions Diet, Activity, Other Instructions: Hay que hacer daya para gabbi [place] doctor primario en raúl semana. Aga daya para gabbi [place] neurologo y hematologa en raúl semana. Te estoy mandando a gabbi el pulmonologo Dr. Mayfield para segimento de nodulos en janki pulmones. Si le falta aire use janki nebulizers en casa. Empiesa de nuevo today janki medicamentos. Le stoy recetando el nuevo medicamento para los merry de [place] Valproic Acid a [place] farmacia. NO debe de christopher aspirina or ibuprofen. Tylenol solamente. Dieta diabetica. Mantengase activia. Referrals: Serafin Mayfield MD [Staff Physician] - Kodak Wayne DO [Staff Physician] - STAFF,NOT ON [Primary Care Provider] - Disposition: VNS/HOME HEALTH CARE - Home Medications Comprehensive Discharge Medication List: Ambulatory Orders Docusate Sodium [Colace -] 100 mg PO BID 01/01/17 Folic Acid 1 mg PO DAILY 01/01/17 Amlodipine Besylate [Norvasc -] 5 mg PO DAILY 04/16/17 Clonazepam [KlonoPIN -] 2 mg PO BID PRN 04/16/17 Famotidine [Heartburn Prevention] 20 mg PO BID 04/16/17 Metformin HCl [Metformin HCl ER] 500 mg PO ACBK 04/16/17 Sertraline HCl [Zoloft] 25 mg PO DAILY 04/16/17 Trazodone HCl 50 mg PO HS 04/16/17 Albuterol 0.083% Nebulizer May [Ventolin 0.083%] 1 neb NEB QID 04/23/17 Albuterol Sulfate Inhaler - [Ventolin HFA Inhaler -] 1 puff IH PRN 04/23/17 Miscellaneous Drug Not In Syst [Outpatient Lab Test] 1 each ASDIR #1 misc 01/08 Tramadol HCl 50 mg PO BID #10 tab 04/23/17 Valproic Acid [Depakene -] 500 mg PO BID #60 tab 04/23/17 Problem List - Problems (1) Chest pain (2) Vasoocclusive sickle cell crisis (3) Bronchitis (4) Chronic migraine without aura, with status migrainosus (5) HTN (hypertension) (6) DM type 2 (diabetes mellitus, type 2) (7) Chronic lower back pain (8) DVT prophylaxis - Discharge Referral Referred to [facility] No
== END 2017-04-23 16:32 | disposition home health service (06) | DRG 662 ==
LOC: JER 21:41 → SUPCPDRO 21:41 → JERBED 04-16 06:18 → UNDOADMIN 04-16 06:31 → JERBED 04-16 06:31 → J6S 04-16 08:03
PROVIDERS: ADMIT Internal Medicine; ATTEND Internal Medicine
DX: D57.00 Hb-SS disease with crisis, unspecified (principal); J45.901 Unspecified asthma with (acute) exacerbation; J20.9 Acute bronchitis, unspecified; J18.9 Pneumonia, unspecified organism; I10 Essential (primary) hypertension; R07.89 Other chest pain; E11.9 Type 2 diabetes mellitus without complications; R91.1 Solitary pulmonary nodule; G43.701 Chronic migraine without aura, not intractable, with status migrainosus; M79.7 Fibromyalgia; M47.897 Other spondylosis, lumbosacral region; R09.02 Hypoxemia; M51.27 Other intervertebral disc displacement, lumbosacral region; K59.09 Other constipation; F41.8 Other specified anxiety disorders; K76.0 Fatty (change of) liver, not elsewhere classified; J98.11 Atelectasis; Z87.891 Personal history of nicotine dependence; Z86.718 Personal history of other venous thrombosis and embolism
CPT/HCPCS: 36415; 36600; 70450-TC; 71010-TC; 71020-TC; 71250-TC; 72070-TC; 72100-TC; 72148-TC; 80048; 80053; 81003; 81015; 82550; 82803; 83615; 83735; 84439; 84443; 84481; 84484; 85025; 85027; 85044; 85610; 85651; 85730; 86140; 86850; 86900; 86901; 87040; 87086; 87254; 87804; 90670; 93005; 93010; 94010; 94640; 97116-GP; 97161; 99283-25

== ENCOUNTER 2018-01-03 22:35 | Emergency (ER) | payer OTHER ==
[2018-01-03 23:12] VITALS: TEMP 98.5; BMI 27.4
--- NOTE | 2018-01-04 00:35 | PDOC ---
History of Present Illness - General History Source: Patient Exam Limitations: No Limitations - History of Present Illness Initial Comments: 01/04/18 02:15 Patient is a 42 year old female with a significant past medical history of chronic headache, Anemia, HTN, diabetes, DVT prophylaxis, who presents to the ED with complaints of left sided head pain that began 1 week ago. Patient reports experiencing chronic head pain for 10 years that she states began to increase in pain over time beginning last week. She reports going to [facility] this morning for head pain. Patient reports being at [facility] from 9am until 7pm and was seen, drawn blood and administered pain medication before leaving. She reports coming to the ED for further evaluation after pain did not subside after leaving [facility]. Patient reports taking previously prescribed percocet for head pain with no relief. Patient reports experiencing intermittent nose bleeds that began earlier this afternoon, but is unsure if it is related to her head pain. She reports receiving [address] scans in the last year Denies chest pain, Sob. Denies nausea, vomiting. Denies fevers, chills. Denies trauma to affected area. Denies any other symptoms. Allergies: None Social history: Lives with . Current smoker (1-2 cigarettes, per day). No alcohol. No illicit drugs. Surgical history: None PMD: Not on staff. <Scott Brenner - Last Filed: 01/04/18 02:14> <Hina Fox - Last Filed: 01/04/18 02:56> - General Chief Complaint: Headache Stated Complaint: HEADACHE Time Seen by Provider: 01/04/18 00:28 Past History <Scott Brenner - Last Filed: 01/04/18 02:14> - Past Medical History Anemia: No Asthma: No Cancer: No Cardiac Disorders: No CVA: No COPD: No CHF: No Dementia: No Diabetes: Yes GI Disorders: Yes (fatty liver on u/s) Disorders: No HTN: Yes Hypercholesterolemia: No Liver Disease: Yes Seizures: No Thyroid Disease: No - Surgical History Abdominal Surgery: No Appendectomy: No Cardiac Surgery: No Cholecystectomy: Yes Lung Surgery: No Neurologic Surgery: No Orthopedic Surgery: No - Reproductive History (#): 2 Para: 0 Polycystic Ovaries: Yes Spontaneous : 1 - Immunization History Immunization Up to Date: Yes - Suicide/Smoking/Psychosocial Hx Smoking Status: Yes Smoking History: Never smoked Have you smoked in the past 12 months: No Number of Cigarettes Smoked Daily: 3 If you are a former smoker, when did you quit?: 10 months back Cigars Per Day: 0 Information on smoking cessation initiated: No 'Breaking Loose' booklet given: 12/02/16 Hx Alcohol Use: No Drug/Substance Use Hx: No Substance Use Type: None Hx Substance Use Treatment: No <Hina Fox - Last Filed: 01/04/18 02:56> - Past Medical History Allergies/Adverse Reactions: Allergies Allergy/AdvReac Type Severity Reaction Status Date / Time No Known Allergies Allergy Verified 01/03/18 23:12 Home Medications: Ambulatory Orders Folic Acid 1 mg PO DAILY 01/01/17 Amlodipine Besylate [Norvasc -] 5 mg PO DAILY 04/16/17 Review of Systems - Review of Systems Able to Perform ROS?: Yes Comments:: 01/04/18 02:15 CONSTITUTIONAL: Absent: fever, chills, diaphoresis, generalized weakness, malaise, loss of appetite HEENT: +Left sided head pain. Absent: rhinorrhea, nasal congestion, throat pain, throat swelling, difficulty swallowing, mouth swelling, ear pain, eye pain, visual changes CARDIOVASCULAR: Absent: chest pain, syncope, palpitations, irregular heart rate, lightheadedness , peripheral edema RESPIRATORY: Absent: cough, shortness of breath, dyspnea with exertion, orthopnea, wheezing, stridor, hemoptysis GASTROINTESTINAL: Absent: abdominal pain, abdominal distension, nausea, vomiting, diarrhea, constipation, melena, hematochezia GENITOURINARY: Absent: dysuria, frequency, urgency, hesitancy, hematuria, flank pain, genital pain MUSCULOSKELETAL: Absent: myalgia, arthralgia, joint swelling SKIN: Absent: rash, itching, pallor HEMATOLOGIC/IMMUNOLOGIC: Absent: easy bleeding, easy bruising, lymphadenopathy, frequent infections ENDOCRINE: Absent: unexplained weight gain, unexplained weight loss, heat intolerance, cold intolerance NEUROLOGIC: Absent: headache, focal weakness or paresthesias, dizziness, unsteady gait, seizure, mental status changes, bladder or bowel incontinence PSYCHIATRIC: Absent: anxiety, depression, suicidal or homicidal ideation, hallucinations. All Other Systems: Reviewed and Negative <Scott Brenner - Last Filed: 01/04/18 02:14> *Physical Exam - Vital Signs Last Vital Signs Temp Pulse Resp BP Pulse Ox 98.5 F 79 18 133/92 98 01/03/18 23:07 01/04/18 01:31 01/04/18 01:31 01/04/18 01:31 01/04/18 01:31 - Physical Exam Comments: 01/04/18 02:15 GENERAL: Well developed, well nourished. Awake and alert. No acute distress. HEENT: Normocephalic, atraumatic. PERRLA, EOMI. No conjunctival pallor. Sclera are non- icteric. Moist mucous membranes. Oropharynx is clear. NECK: Supple. Full ROM. No JVD. Carotid pulses 2+ and symmetric, without bruits. No thyromegaly. No lymphadenopathy. CARDIOVASCULAR: Regular rate and rhythm. No murmurs, rubs, or gallops. Distal pulses are 2+ and symmetric. PULMONARY: No evidence of respiratory distress. Lungs clear to auscultation bilaterally. No wheezing, rales or rhonchi. ABDOMINAL: Soft. Non-tender. Non-distended. No rebound or guarding. No organomegaly. Normoactive bowel sounds. MUSCULOSKELETAL Normal range of motion at all joints. No bony deformities or tenderness. No CVA tenderness. EXTREMITIES: No cyanosis. No clubbing. No edema. No calf tenderness. SKIN: Warm and dry. Normal capillary refill. No rashes. No jaundice. NEUROLOGICAL: Alert, awake, appropriate. Cranial nerves 2-12 intact. No deficits to light touch and temperature in face, upper extremities and lower extremities. No motor deficits in the in face, upper extremities and lower extremities. Normoreflexic in the upper and lower extremities. Normal speech. Toes are down-going bilaterally. Gait is normal without ataxia. PSYCHIATRIC: Cooperative. Good eye contact. Appropriate mood and affect. <Scott Brenner - Last Filed: 01/04/18 02:14> - Vital Signs Last Vital Signs Temp Pulse Resp BP Pulse Ox 98.5 F 82 20 165/110 97 01/03/18 23:07 01/03/18 23:07 01/03/18 23:07 01/03/18 23:07 01/03/18 23:07 <Hina Fox - Last Filed: 01/04/18 02:56> ED Treatment Course - Medications Given in the ED: ED Medications Discontinued Medications Generic Name Dose Route Start Last Admin Trade Name Kimani PRN Reason Stop Dose Admin Amlodipine Besylate 10 mg 01/04/18 01:31 01/04/18 01:51 Norvasc - PO 01/04/18 01:32 10 mg ONCE ONE Administration Ketorolac Tromethamine 60 mg 01/04/18 01:33 01/04/18 01:51 Toradol Injection - IM 01/04/18 01:34 60 mg ONCE ONE Administration Oxycodone/Acetaminophen 2 combo 01/04/18 01:17 01/04/18 01:50 Percocet 5/325 - PO 01/04/18 01:18 2 combo ONCE ONE Administration <Scott Brenner - Last Filed: 01/04/18 02:14> Medical Decision Making - Medical Decision Making 01/04/18 02:09 42-year-old female presents with a headache. She is a long-standing history of migraines. She states that she was at [facility] today from 9 AM to 7 PM [facility] and had blood work done, but she said they didn't help her with her headache. Patient has been here and has a long history of headaches and has been seen by our neurologist. 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 Past medical history migraines, sickle cell disease, DVT, hypertension. Past surgical history cataract removal, cholecystectomy She has tried multiple acute and prophylactic agents for her migraines including Depakote, amitriptyline, Topamax, and naproxen. -her narcotic drug activity was followed at the [facility] site and she has had no recent narcotic prescriptions. The last time she saw her neurologist was last year She has no fever, no neck pain, no visual changes, no facial droop, no slurred speech, no extremity weakness. She's had no chest pain, shortness of breath 01/04/18 02:2 BP came down -no gross focal neuro deficits <Hina Fox - Last Filed: 01/04/18 02:56> *DC/Admit/Observation/Transfer - Attestations Scribe Attestion: 01/04/18 02:15 Documentation prepared by Scott Brenner, acting as medical doctor for Hina Fox MD/. <Scott Brenner - Last Filed: 01/04/18 02:14> <Hina Fox - Last Filed: 01/04/18 02:56> Diagnosis at time of Disposition: Bleeding from the nose Chronic migraine without aura, with status migrainosus Qualifiers: Intractability: not intractable Qualified Code(s): G43.701 - Chronic migraine without aura, not intractable, with status migrainosus - Discharge Dispostion Disposition: HOME Condition at time of disposition: Stable - Referrals Referrals: Kodak Wayne DO [Staff Physician] - - Patient Instructions Printed Discharge Instructions: DI for Migraine, DI for Nosebleed Additional Instructions: PLEASE FOLLOWUP WITH YOUR NEUROLOGIST IT IS IMPORTANT TO TAKE YOUR BLOOD PRESSURE MEDICATIONS
[2018-01-04] MEDS ORDERED: amLODIPine BESYLATE 10 MG TABLET (FP) PO ONE (01:31)
[2018-01-04] MEDS ORDERED: KETOROLAC TROMETHAMINE 60 MG/2 ML VIAL IM ONE (01:33)
[2018-01-04] MEDS ORDERED: amLODIPine BESYLATE 5 MG TABLET (FP) ONE (01:44)
[2018-01-04] MEDS ORDERED: KETOROLAC TROMETHAMINE 60 MG/2 ML VIAL ONE (01:45)
[2018-01-04 03:00] VITALS: BP 148/89; PULSE 89
== END 2018-01-04 02:59 | disposition home or self-care (01) ==
LOC: JER 22:35
DX: G43.701 Chronic migraine without aura, not intractable, with status migrainosus (principal); I10 Essential (primary) hypertension; E11.9 Type 2 diabetes mellitus without complications; Z86.718 Personal history of other venous thrombosis and embolism
CPT/HCPCS: 99282-25